=== PATIENT | male | born 1940 | race Two or more races ===

== ENCOUNTER 2020-06-18 09:47 | Inpatient (IN) | payer MEDICARE, OTHER ==
[2020-06-18 10:53] LABS: Basophils # (A) 0.1 k/uL (0-0.2); Basophils % (A) 0 %; Eosinophils # (A) 0.7 k/uL (0-0.7); Eosinophils % (A) 5 %; HCT 38.4 % (39.0-53.0); HGB 12.2 gm/dL (13.0-17.5); Lymphocytes # (A) 1.4 k/uL (1.0-4.8); Lymphocytes % (A) 8 %; MCH 28.7 pg (25.0-35.0); MCHC 31.9 g/dL (31.0-37.0); MCV 90.1 fL (80.0-100.0); Monocytes # (A) 0.6 k/uL (0-1.0); Monocytes % (A) 4 %; Neutrophils # (A) 13.3 k/uL (1.3-7.7); Neutrophils % (A) 82 %; Platelet Count 307 k/uL (150-450); RBC 4.26 m/uL (4.30-5.90); WBC 16.2 k/uL (3.8-10.6)
[2020-06-18 11:05] LABS: ALT 12 U/L (4-49); AST 18 U/L (17-59); African American GFR (CKD) >90 (>60 ml/min/1.73 sqM); Alkaline Phosphatase 56 U/L (38-126); Anion Gap 12 mmol/L; Blood Urea Nitrogen 13 mg/dL (9-20); Calcium 9.7 mg/dL (8.4-10.2); Carbon Dioxide 21 mmol/L (22-30); Chloride 104 mmol/L (98-107); Glucose 163 mg/dL (74-99); Magnesium 1.2 mg/dL (1.6-2.3); Non-African American GFR(CKD) 87 (>60 ml/min/1.73 sqM); Potassium 5.2 mmol/L (3.5-5.1); Sodium 137 mmol/L (137-145); Total Bilirubin 0.5 mg/dL (0.2-1.3); Total Protein 7.2 g/dL (6.3-8.2)
[2020-06-18 11:08] LABS: Prothrombin Time 10.5 sec (9.0-12.0)
--- NOTE | 2020-06-18 11:14 | XR ---
EXAMINATION TYPE: XR chest 2V DATE OF EXAM: 06/18/2020 COMPARISON: NONE HISTORY: Chest pain. TECHNIQUE: Frontal and lateral views of the chest are obtained. FINDINGS: Background chronic emphysematous change.There is no focal air space opacity or pneumothorax seen bilaterally. Suspected small to tiny right pleural effusion on lateral view. The cardiac silhou ette size is within normal limits. Suspicious 5.2 cm left hilar mass localized to the medial superior aspect left lower lobe seen best on lateral view The osseous structures are intact. IMPRESSION: Chronic emphysematous change without acute pulmonary infiltrate. Small to tiny pleural e ffusion suspected right sided. Worrisome 5 cm left hilar mass, advise contrast enhanced CT follow-up as neoplasm strongly suspected.
[2020-06-18 11:20] LABS: D-Dimer 0.65 mg/L FEU (<0.60)
--- NOTE | 2020-06-18 12:29 | ED ---
General Adult HPI - General Chief complaint: Abdominal Pain Stated complaint: Chest pain Time Seen by Provider: 06/18/20 09:55 Source: patient Mode of arrival: wheelchair Limitations: no limitations - History of Present Illness Initial comments: 79-year-old male with past medical history of diabetes results emergency room with reported left-sided chest pain. Patient states that it is persistent and started 4 days ago. It will wax and wane in severity. He will occasionally get sharp shooting pains which go to his left scapula. Patient has associated shortness of breath. Denies any ripping or tearing sensation to his back. No pleuritic pain. Denies hemoptysis. Previous history of cardiac disease. Denies history of lung disease. Patient has not had a previous cardiac workup. Denies associated nausea, vomiting or diaphoresis. Denies any abdominal pain or changes in his bowel or bladder habits. No unilateral numbness or weakness. Trevor zacarias does not smoke. No productive cough, fevers or chills. No other alleviating, precipitating factors - Related Data Home Medications Medication Instructions Recorded Confirmed Aspirin EC [Ecotrin Low Dose] 81 mg PO HS 06/18/20 06/18/20 Cholecalciferol [Vitamin D3 (25 5,000 unit PO HS 06/18/20 06/18/20 Mcg = 1000 Iu)] Lisinopril [Zestril] 10 mg PO DAILY 06/18/20 06/18/20 Repaglinide [Prandin] 0.5 mg PO AC-TID 06/18/20 06/18/20 Simvastatin [Zocor] 20 mg PO HS 06/18/20 06/18/20 metFORMIN HCL ER [Glucophage Xr] 1,000 mg PO BID 06/18/20 06/18/20 Allergies Allergy/AdvReac Type Severity Reaction Status Date / Time No Known Allergies Allergy Verified 06/18/20 11:30 Review of Systems ROS Statement: Those systems with pertinent positive or pertinent negative responses have been documented in the HPI. ROS Other: All systems not noted in ROS Statement are negative. Past Medical History Past Medical History: Diabetes Mellitus History of Any Multi-Drug Resistant Organisms: None Reported Past Surgical History: No Surgical Hx Reported Past Psychological History: No Psychological Hx Reported Smoking Status: Former smoker Past Alcohol Use History: None Reported Past Drug Use History: None Reported General Exam Limitations: no limitations General appearance: alert, in no apparent distress Head exam: Present: atraumatic, normocephalic, normal inspection Eye exam: Present: normal appearance, PERRL, EOMI. Absent: scleral icterus, conjunctival injection, periorbital swelling ENT exam: Present: normal exam, mucous membranes moist Neck exam: Present: normal inspection. Absent: tenderness, meningismus, lymphadenopathy Respiratory exam: Present: normal lung sounds bilaterally. Absent: respiratory distress, wheezes, rales, rhonchi, stridor Cardiovascular Exam: Present: regular rate, normal rhythm, normal heart sounds. Absent: systolic murmur, diastolic murmur, rubs, gallop, clicks GI/Abdominal exam: Present: soft, normal bowel sounds. Absent: distended, tenderness, guarding, rebound, rigid Extremities exam: Present: normal inspection, full ROM, normal capillary refill. Absent: tenderness, pedal edema, joint swelling, calf tenderness Back exam: Present: normal inspection Neurological exam: Present: alert, oriented X3, CN II-XII intact Psychiatric exam: Present: normal affect, normal mood Skin exam: Present: warm, dry, intact, normal color. Absent: rash Course Vital Signs 06/18/20 06/18/20 06/18/20 09:52 10:30 11:00 Temperature 98.3 F Pulse Rate 90 78 78 Respiratory 18 18 19 Rate Blood Pressure 152/76 150/77 131/75 O2 Sat by Pulse 95 95 95 Oximetry 06/18/20 06/18/20 06/18/20 12:00 12:30 13:00 Temperature Pulse Rate 77 77 76 Respiratory 15 20 13 Rate Blood Pressure 133/85 136/77 138/92 O2 Sat by Pulse 95 96 97 Oximetry 06/18/20 06/18/20 06/18/20 13:30 14:00 14:30 Temperature Pulse Rate 72 75 80 Respiratory 21 22 19 Rate Blood Pressure 117/85 142/68 125/64 O2 Sat by Pulse 98 95 97 Oximetry 06/18/20 06/18/20 06/18/20 15:00 15:30 16:00 Temperature Pulse Rate 76 77 78 Respiratory 18 13 19 Rate Blood Pressure 150/75 128/76 138/70 O2 Sat by Pulse 96 97 98 Oximetry 06/18/20 06/18/20 06/18/20 16:30 17:00 17:30 Temperature Pulse Rate 73 76 96 Respiratory 20 18 20 Rate Blood Pressure 127/67 143/73 138/99 O2 Sat by Pulse 96 97 96 Oximetry 06/18/20 18:00 Temperature Pulse Rate 86 Respiratory 19 Rate Blood Pressure 135/73 O2 Sat by Pulse 96 Oximetry EKG Findings - EKG Comments: EKG Findings:: EKG demonstrates normal sinus rhythm with ventricular rate of 84. P interval 150. QRS 82. QTC 4:15. No acute ST segment elevations. Medical Decision Making - Medical Decision Making Upon arrival the patient is placed into room 3. History and physical exam was performed. 12-lead EKG is unremarkable. Laboratory studies demonstrate a leukocytosis of 16.2. D-dimer elevated at 0.65. Chest x-ray is performed which demonstrates a large mass near the left hilum. As of this I did, the CT contrasted study for which the patient did agree to. This was performed which does demonstrate multiple pulmonary nodules, the largest of which is 4 cm which is near the left lower lobe posterior medial. There is an additional nodule in the inferior left lower lobe area and left hilar and left mediastinal lymphadenopathy. I discussed results the patient. I did recommend hospital admission for evaluation by pulmonology for biopsy. Patient agreed to this. Discussed case with Dr. Wells who accepted admission. Patient is currently awaiting a bed on the floor - Lab Data Result diagrams: 06/19/20 06:16 06/19/20 06:16 Lab Results 06/18/20 06/18/20 06/18/20 Range/Units 10:34 10:34 10:34 WBC 16.2 H (3.8-10.6) k/uL RBC 4.26 L (4.30-5.90) m/uL Hgb 12.2 L (13.0-17.5) gm/dL Hct 38.4 L (39.0-53.0) % MCV 90.1 (80.0-100.0) fL MCH 28.7 (25.0-35.0) pg MCHC 31.9 (31.0-37.0) g/dL RDW 13.0 (11.5-15.5) % Plt Count 307 (150-450) k/uL Neutrophils % 82 % Lymphocytes % 8 % Monocytes % 4 % Eosinophils % 5 % Basophils % 0 % Neutrophils # 13.3 H (1.3-7.7) k/uL Lymphocytes # 1.4 (1.0-4.8) k/uL Monocytes # 0.6 (0-1.0) k/uL Eosinophils # 0.7 (0-0.7) k/uL Basophils # 0.1 (0-0.2) k/uL PT 10.5 (9.0-12.0) sec INR 1.0 (<1.2) APTT 26.0 (22.0-30.0) sec D-Dimer 0.65 H (<0.60) mg/L FEU Sodium 137 (137-145) mmol/L Potassium 5.2 H (3.5-5.1) mmol/L Chloride 104 (98-107) mmol/L Carbon Dioxide 21 L (22-30) mmol/L Anion Gap 12 mmol/L BUN 13 (9-20) mg/dL Creatinine 0.80 (0.66-1.25) mg/dL Est GFR (CKD-EPI)AfAm >90 (>60 ml/min/1.73 sqM) Est GFR (CKD-EPI)NonAf 87 (>60 ml/min/1.73 sqM) Glucose 163 H (74-99) mg/dL Calcium 9.7 (8.4-10.2) mg/dL Magnesium 1.2 L (1.6-2.3) mg/dL Total Bilirubin 0.5 (0.2-1.3) mg/dL AST 18 (17-59) U/L ALT 12 (4-49) U/L Alkaline Phosphatase 56 (38-126) U/L Troponin I (0.000-0.034) ng/mL NT-Pro-B Natriuret Pep pg/mL Total Protein 7.2 (6.3-8.2) g/dL Albumin 4.0 (3.5-5.0) g/dL Lipase 54 (23-300) U/L 06/18/20 06/18/20 Range/Units 10:34 10:34 WBC (3.8-10.6) k/uL RBC (4.30-5.90) m/uL Hgb (13.0-17.5) gm/dL Hct (39.0-53.0) % MCV (80.0-100.0) fL MCH (25.0-35.0) pg MCHC (31.0-37.0) g/dL RDW (11.5-15.5) % Plt Count (150-450) k/uL Neutrophils % % Lymphocytes % % Monocytes % % Eosinophils % % Basophils % % Neutrophils # (1.3-7.7) k/uL Lymphocytes # (1.0-4.8) k/uL Monocytes # (0-1.0) k/uL Eosinophils # (0-0.7) k/uL Basophils # (0-0.2) k/uL PT (9.0-12.0) sec INR (<1.2) APTT (22.0-30.0) sec D-Dimer (<0.60) mg/L FEU Sodium (137-145) mmol/L Potassium (3.5-5.1) mmol/L Chloride (98-107) mmol/L Carbon Dioxide (22-30) mmol/L Anion Gap mmol/L BUN (9-20) mg/dL Creatinine (0.66-1.25) mg/dL Est GFR (CKD-EPI)AfAm (>60 ml/min/1.73 sqM) Est GFR (CKD-EPI)NonAf (>60 ml/min/1.73 sqM) Glucose (74-99) mg/dL Calcium (8.4-10.2) mg/dL Magnesium (1.6-2.3) mg/dL Total Bilirubin (0.2-1.3) mg/dL AST (17-59) U/L ALT (4-49) U/L Alkaline Phosphatase (38-126) U/L Troponin I <0.012 (0.000-0.034) ng/mL NT-Pro-B Natriuret Pep 120 pg/mL Total Protein (6.3-8.2) g/dL Albumin (3.5-5.0) g/dL Lipase (23-300) U/L Disposition Clinical Impression: Chest pain, Chest mass Disposition: ADMITTED IP TO THIS [facility] Condition: Stable Is patient prescribed a controlled substance at d/c from ED?: No Decision to Admit Reason: Admit from EC Decision Date: 06/18/20 Decision Time: 14:05
--- NOTE | 2020-06-18 13:33 | CT ---
EXAMINATION TYPE: CT chest angio for PE DATE OF EXAM: 06/18/2020 COMPARISON: Chest radiograph 06/18/2020 HISTORY: Lung mass. CT DLP: 247.7 mGycm Automated exposure control for dose reduction was used. CONTRAST: CT Chest for pulmonary embolism performed with with IV Contrast, patient injected with 100 mL of Isov ue 370. FINDINGS: LUNGS: There is a pleural-based 3.9 x 3.1 x 4.0 cm lobulated spiculated lung mass of the left lower l obe posteromedially (406:76). There is a 0.6 x 0.5 x 0.7 cm spiculated nodule of the inferior left lo wer lobe (406:104). There is spiculated opacity at the left apical pleura measuring 1.5 x 1.0 x 1.0 c m (406:9, 403:113). There is centrilobular emphysema. No pleural effusion or pneumothorax seen. The tracheobronchial tree is patent. MEDIASTINUM: There is satisfactory enhancement of the pulmonary artery and its branches, there is no CT evidence for pulmonary embolism. There is 3.2 x 2.4 cm left hilar adenopathy. There are a few prom inent left mediastinal lymph nodes, and a frankly enlarged left mediastinal lymph node measuring 1.1 x 1.2 cm (401:53) to the left of the ramakrishna. No pericardial effusion is seen. Cardiac size normal. N o thoracic aortic aneurysm. OTHER: Somewhat nodular appearance of the adrenal glands, however they are incompletely visualized. There are a few subtle tiny lucent osseous lesions of the visualized spine. There is decreased osseou s mineralization. IMPRESSION: 1. Spiculated left lower lobe posteromedial 4.0 cm lung mass most likely represents malignancy. 2. 7 mm spiculated nodule of the inferior left lower lobe may represent metastatic nodule. 3. Left hilar and left mediastinal lymphadenopathy, most likely metastatic disease. 4. Spiculated opacity at the left apical pleura may represent scarring versus metastatic focus. 5. Somewhat nodular appearance of the adrenal glands, however they are incompletely visualized on cu rrent exam. 6. Subtle tiny lucent indeterminate spinal lesions, for which differential includes osseous metastat ic disease. 7. No pulmonary embolus or thoracic aortic aneurysm.
[2020-06-18] MEDS ORDERED: NALOXONE 0.4 MG/ML 1 ML VIAL IV PRN (14:06)
[2020-06-18] MEDS: INSULIN ASPART (NovoLOG) 100 UNIT/ML VIAL SQ SCH ×2 (18:23→21:25)
[2020-06-18] MEDS ORDERED: Magnesium Replacement Protocol 1 EACH MISC MISCELLANE PRN (18:40)
[2020-06-18] MEDS: MAGNESIUM SULFATE-D5W PMX 1 GM in DEXTROSE/WATER 1 100ML.BAG IVPB SCH ×3 (20:01→22:37)
[2020-06-18 20:13] LABS: Glucose,Whole Blood 274 mg/dL (75-99)
[2020-06-18] MEDS ORDERED: ASPIRIN 81 MG PO SCH (21:00)
[2020-06-18] MEDS ORDERED: CHOLECALCIFEROL 1,000 UNIT TAB PO SCH (21:00)
[2020-06-18] MEDS ORDERED: ATORVASTATIN 10 MG TAB PO SCH (21:00)
[2020-06-18] MEDS: HEPARIN SODIUM,PORCINE 5,000 UNIT/ML 1 ML VIAL SQ SCH (23:24)
--- NOTE | 2020-06-19 00:18 | P.HPIM ---
History of Present Illness H&P Date: 06/18/20 Chief Complaint: Chest Pain Patient is a 79-year-old male with a known history of diabetes type 2 [id number], hypertension, hyperlipidemia and previous history of s moking presents to ER with complaints of chest pain mainly left-sided. Patient has been having intermittent chest pain for the past 4 to 5 days. Pain gets worse when he was lying down to the left while sleeping at night. Occasionally he will get sharp shooting pains radiating to the left scapula. Associated with minimal shortness of breath. Denied any cough or sputum production. No pleuritic chest pain. Denied any nausea vomiting or diaphoresis. Denied any fever or chills. No prior history of heart disease. Denied any recent illnesses or sick contacts. No leg swelling. Patient states that he did not lose about 5-6 LBS during the last 1 month. Denied any loss of appetite. Chest x-ray showed chronic emphysematous change without acute pulmonary infiltrate. Small to tiny pleural effusion suspected right-sided. Worrisome 5 cm left hilar mass. CT was recommended. CT angiogram of the chest was done which showed spiculated left lower lobe posterior medial 4.0 cm lung mass most likely represents malignancy. 7 mm spiculated nodule of the inferior left lower lobe may represent metastatic nodule. Left hilar and left mediastinal lymphadenopathy Nodular appearance of the adrenal glands. No pulmonary embolus thoracic aortic aneurysm. Review of Systems Constitutional: Patient denies any fever or chills . No generalized weakness or weight loss. Abdomen: Patient denied nausea vomiting and diarrhea and abdominal pain. Cardiovascular: Patient denies any chest pain or short of breath no palpitations. Respiratory: patient denied any cough is from production. No shortness of breath Neurologic: Patient denied any numbness or tingling headache. Musculoskeletal: Patient denies any complaints of joint swelling or deformity. Skin: Negative Psychiatric: Negative Endocrine: No heat or cold intolerance. No recent weight gain. Genitourinary: No dysuria or hematuria. All other 14 point ROS negative except the above Past Medical History Past Medical History: Diabetes Mellitus History of Any Multi-Drug Resistant Organisms: None Reported Past Surgical History: No Surgical Hx Reported Past Psychological History: No Psychological Hx Reported Smoking Status: Former smoker Past Alcohol Use History: None Reported Past Drug Use History: None Reported Medications and Allergies Home Medications Medication Instructions Recorded Confirmed Type Aspirin EC [Ecotrin Low Dose] 81 mg PO HS 06/18/20 06/18/20 History Cholecalciferol [Vitamin D3 (25 5,000 unit PO HS 06/18/20 06/18/20 History Mcg = 1000 Iu)] Lisinopril [Zestril] 10 mg PO DAILY 06/18/20 06/18/20 History Repaglinide [Prandin] 0.5 mg PO AC-TID 06/18/20 06/18/20 History Simvastatin [Zocor] 20 mg PO HS 06/18/20 06/18/20 History metFORMIN HCL ER [Glucophage Xr] 1,000 mg PO BID 06/18/20 06/18/20 History Allergies Allergy/AdvReac Type Severity Reaction Status Date / Time No Known Allergies Allergy Verified 06/18/20 11:30 Physical Exam Vitals: Vital Signs Temp Pulse Resp BP Pulse Ox 06/18/20 16:00 78 19 138/70 98 06/18/20 15:30 77 13 128/76 97 06/18/20 15:00 76 18 150/75 96 06/18/20 14:30 80 19 125/64 97 06/18/20 14:00 75 22 142/68 95 06/18/20 13:30 72 21 117/85 98 06/18/20 13:00 76 13 138/92 97 06/18/20 12:30 77 20 136/77 96 06/18/20 12:00 77 15 133/85 95 06/18/20 11:00 78 19 131/75 95 06/18/20 10:30 78 18 150/77 95 06/18/20 09:52 98.3 F 90 18 152/76 95 Intake and Output 06/18/20 06/18/20 06/18/20 06:59 14:59 22:59 Other: Weight 65.726 kg PHYSICAL EXAMINATION: Patient is lying in the bed comfortably, no acute distress, awake alert and oriented.. HEENT: Normocephalic. Neck is supple. Pupils reactive. Nostrils clear. Oral cavity is moist. Ears reveal no drainage. Neck reveals no JVD, carotid bruits, or thyromegaly. CHEST EXAMINATION: Trachea is central. Symmetrical expansion. Lung treadwell clear to auscultation and percussion. CARDIAC: Normal S1, S2 with no gallops. No murmurs ABDOMEN: Soft. Bowel sounds normal. No organomegaly. No abdominal bruits. Extremities: reveal no edema. No clubbing or cyanosis Neurologically awake, alert, oriented x3 with well-coordinated movements. No focal deficits noted Skin: No rash or skin lesions. Psychiatric: Coperative. Nonsuicidal Musculoskeletal: No joint swelling or deformity. Normal range of motion. Results CBC & Chem 7: 06/18/20 10:34 06/18/20 10:34 Labs: Abnormal Lab Results - Last 24 Hours (Table) 06/18/20 06/18/20 06/18/20 Range/Units 10:34 10:34 10:34 WBC 16.2 H (3.8-10.6) k/uL RBC 4.26 L (4.30-5.90) m/uL Hgb 12.2 L (13.0-17.5) gm/dL Hct 38.4 L (39.0-53.0) % Neutrophils # 13.3 H (1.3-7.7) k/uL D-Dimer 0.65 H (<0.60) mg/L FEU Potassium 5.2 H (3.5-5.1) mmol/L Carbon Dioxide 21 L (22-30) mmol/L Glucose 163 H (74-99) mg/dL Magnesium 1.2 L (1.6-2.3) mg/dL Thrombosis Risk Factor Assmnt - DVT/VTE Prophylaxis DVT/VTE Prophylaxis: Pharmacologic Prophylaxis ordered Assessment and Plan Assessment: Left lower lobe spiculated 4.0 cm mass. newly diagnosed Intermittent chest pains. Likely secondary to above. Ruled out ACS 7 mm spiculated nodule of the inferior left lower lobe may represent metastatic nodule. Left hilar and left mediastinal lymphadenopathy Leukocytosis Previous history of smoking Hypertension Hyperlipidemia Hyperglycemia with uncontrolled diabetes type 2 Hypomagnesemia Diabetes type 2 [id number] DVT prophylaxis with heparin subcu Plan: Patient will be continued on pain management and breathing treatments as needed. Pulmonary was consulted for possible bronchoscopy and biopsy. Monitor electrolytes and repeat CBC and BMP tomorrow. Prognosis guarded. Discussed with the patient and his at bedside in detail. Time with Patient: Greater than 30
[2020-06-19] MEDS: MAGNESIUM SULFATE-D5W PMX 1 GM in DEXTROSE/WATER 1 100ML.BAG IVPB SCH ×3 (01:46→07:05)
[2020-06-19] MEDS ORDERED: ACETAMINOPHEN TAB 325 MG TAB PO PRN (04:42)
[2020-06-19 06:23] LABS: Glucose,Whole Blood 187 mg/dL (75-99)
[2020-06-19] MEDS: INSULIN ASPART (NovoLOG) 100 UNIT/ML VIAL SQ SCH ×2 (06:23→12:12)
[2020-06-19 07:32] LABS: Basophils # (A) 0.1 k/uL (0-0.2); Basophils % (A) 0 %; Eosinophils # (A) 0.6 k/uL (0-0.7); Eosinophils % (A) 4 %; HCT 38.7 % (39.0-53.0); HGB 12.1 gm/dL (13.0-17.5); Lymphocytes # (A) 1.2 k/uL (1.0-4.8); Lymphocytes % (A) 7 %; MCH 28.4 pg (25.0-35.0); MCHC 31.2 g/dL (31.0-37.0); MCV 90.9 fL (80.0-100.0); Mean Platelet Volume 8.8; Monocytes # (A) 0.9 k/uL (0-1.0); Monocytes % (A) 5 %; Neutrophils # (A) 13.7 k/uL (1.3-7.7); Neutrophils % (A) 82 %; Platelet Count 309 k/uL (150-450); RBC 4.26 m/uL (4.30-5.90); RDW 13.1 % (11.5-15.5); WBC 16.7 k/uL (3.8-10.6)
[2020-06-19 07:46] LABS: Calcium 9.3 mg/dL (8.4-10.2); Potassium 5.3 mmol/L (3.5-5.1)
[2020-06-19] MEDS ORDERED: lisinopriL 10 MG TAB PO SCH (09:00)
[2020-06-19] MEDS: HEPARIN SODIUM,PORCINE 5,000 UNIT/ML 1 ML VIAL SQ SCH ×2 (09:13→12:49)
--- NOTE | 2020-06-19 11:20 | ECHOF ---
Referral Reason:cp MEASUREMENTS -------- HEIGHT: 172.7 cm WEIGHT: 64.4 kg BP: IVSd: 0.9 cm (0.6 - 1.1) LVIDd: 3.7 cm (3.9 - 5.3) LVPWd: 1.2 cm (0.6 - 1.1) EDV(Teich): 58 ml IVSs: 1.1 cm LVIDs: 3.3 cm LVPWs: 1.6 cm %IVS Thck: 22 % ESV(Teich): 43 ml EF(Teich): 25 % %FS: 11 % SV(Teich): 15 ml Ao Diam: 3.0 cm (2.0 - 3.7) AV Cusp: 2.0 cm (1.5 - 2.6) MV EXCURSION: 15.618 mm (> 18.000) MV EF SLOPE: 111 mm/s (70 - 150) EPSS: 0.6 cm MV E Oliverio: 0.62 m/s MV DecT: 310 ms MV Dec Nelson: 2.0 m/s MV A Oliverio: 0.88 m/s MV E/A Ratio: 0.70 MV PHT: 90 ms TR Vmax: 2.46 m/s TR maxP.28 mmHg RAP: 5.00 mmHg RVSP: 29.28 mmHg FINDINGS -------- Sinus rhythm. This was a technically good study. LV size, wall thickness and systolic function are normal, with an EF greater than 55%. The left natali tricular size is normal. The right ventricle is normal in size. The left atrial size is normal. The right atrial size is normal. The aortic valve is trileaflet, and appears structurally normal. No aortic stenosis or regurgitation. The mitral valve leaflets are mildly thickened. Mild mitral regurgitation is present. Mild tricuspid regurgitation present. Right ventricular systolic pressure is normal at < 35 mmHg. There is no pulmonic regurgitation present. The aortic root size is normal. Echo free space represents a pericardial fat pad. CONCLUSIONS -------- 1. LV size, wall thickness and systolic function are normal, with an EF greater than 55%. 2. The left ventricular size is normal. 3. The left atrial size is normal. 4. The right atrial size is normal. 5. The mitral valve leaflets are moderately thickened. 6. Mild mitral regurgitation is present. 7. Mild tricuspid regurgitation present. 8. Echo free space represents a pericardial fat pad. DUNGEON MASTER: Ramona Hoover RDCS
[2020-06-19 12:01] LABS: Glucose,Whole Blood 161 mg/dL (75-99)
[2020-06-19 12:21] VITALS: TEMP 98.4
[2020-06-19 12:27] VITALS: RESP 16
--- NOTE | 2020-06-19 12:50 | P.PCN ---
Date of Procedure: 06/19/20 Preoperative Diagnosis: left lung mass Procedure(s) Performed: ct lung core bx Anesthesia: local Estimated Blood Loss (ml): 5 Pathology: other (in formalin) Disposition: no change Operative Findings: 2 x 20 ga core biopsy left lower lobe pleural based mass
--- NOTE | 2020-06-19 13:00 | XR ---
EXAMINATION TYPE: XR chest 1V portable DATE OF EXAM: 06/19/2020 COMPARISON: 06/18/2020 HISTORY: Chest pain TECHNIQUE: Single frontal view of the chest is obtained. FINDINGS: There is left hilar soft tissue mass. Hyperinflation suggests COPD. Atherosclerotic change aorta. Degenerative change of the spine. No interstitial edema or pneumothorax. IMPRESSION: COPD with left lung mass. No pneumothorax.
--- NOTE | 2020-06-19 13:50 | CT ---
EXAMINATION TYPE: CT guided FNA first lesion DATE OF EXAM: 06/19/2020 COMPARISON: CT 06/18/2020 HISTORY: Left lung mass CT DLP: 663 mGycm Automated exposure control for dose reduction was used. Maximal barrier technique was utilized, hand hygiene obtained with soap and water. The skin overlyin g a suitable path to the lesion was localized using CT and the overlying skin was prepped and draped. Lidocaine used for local anesthesia. A skin karin made with a scalpel. Using CT guidance, access w as gained to the lesion with a 19-gauge guide needle. Core specimen with 20-gauge needle submitted t o pathology in formalin. 2 pass(es) performed in all. Following the procedure no immediate complica tions. The patient is discharged in stable condition to observation. Hemostasis achieved. IMPRESSION: SUCCESSFUL CT GUIDED CORE BIOPSY left lower lobe lung nodule. PATHOLOGY PENDING. THIS PROCEDURE WAS PERFORMED BY THE UNDERSIGNED.
[2020-06-19 14:09] VITALS: BP 154/84; PULSE 72
--- NOTE | 2020-06-19 14:43 | P.CNPUL ---
History of Present Illness Consult date: 06/19/20 Requesting physician: Selina Wells Reason for consult: dyspnea, lung mass, abnormal CXR/CT Chief complaint: Left lower lobe spiculated lung mass and left lower lobe nodule History of present illness: 79-year-old white male patient of Dr. Nunez, with past medical history of nicotine dependence, in remission for last 16 years, patient does carry 40 year smoking history of 2 packs per day, diabetes mellitus, hypertension, hyperlipidemia, who presented to the emergency department on 06/18/2020 for evaluation of left-sided chest pain just under the left anterior rib cage. Patient has been having intermittent chest pain for last 4-5 days. The pain has been worse when he is lying down sleeping at night on the left side with occasional sharp shooting pain radiating to his back and left scapula. Denies any significant shortness of breath, denies any cough, no sputum production, no pleuritic chest pain, no hemoptysis. Denies any fever or chills. No nausea vomiting diarrhea. Patient states he has lost about 5-7 pounds in the last few weeks, and about 20 pounds in the last year without trying. His chest x-ray showed chronic emphysematous changes without acute pulmonary infiltrate, with small to tiny pleural effusion suspected in the right side. There was a 5 cm left hilar mass, and this was followed by CTA chest which showed a spiculated left lower lobe posteromedial 4.0 cm lung mass, suspicious for malignancy, 7 mm spiculated nodule on the inferior left lower lobe that could represent metastatic nodule, left hilar and left mediastinal lymphadenopathy most likely related to metastatic disease, speaking capacity at the left apical pleura could represent scarring versus metastatic focus, and somewhat nodular appearance of the adrenal glands and several tiny lucent indeterminant spinal lesions, with the possibility of osseous metastatic disease. There was no evidence of pulmonary embolism or thoracic aortic aneurysm. Lab work showed white blood cell count of 16.2, hemoglobin of 12.2, d-dimer was 0.65, sodium is 137, potassium is 5.2, chloride is 104, CO2 is 21, BUN was 13, creatinine 0.80, troponins were negative 3, at less than 0.012, proBNP was 120, LFTs were within normal limits. We were consulted in regards to the new finding of the left lower lobe lung mass, left hilar, left mediastinal lymphadenopathy, suspicious for malignancy. Review of Systems All systems: negative Constitutional: Reports weight loss, Denies chills, Denies fever Eyes: denies blurred vision, denies pain Ears, nose, mouth and throat: Denies headache, Denies sore throat Cardiovascular: Reports chest pain, Denies shortness of breath Respiratory: Denies cough Gastrointestinal: Denies abdominal pain, Denies diarrhea, Denies nausea, Denies vomiting Musculoskeletal: Denies myalgias Integumentary: Denies pruritus, Denies rash Neurological: Denies numbness, Denies weakness Psychiatric: Denies anxiety, Denies depression Endocrine: Reports weight change, Denies fatigue Past Medical History Past Medical History: Diabetes Mellitus History of Any Multi-Drug Resistant Organisms: None Reported Past Surgical History: No Surgical Hx Reported Additional Past Surgical History / Comment(s): Cataract surgery in left eye Past Psychological History: No Psychological Hx Reported Smoking Status: Former smoker Past Alcohol Use History: None Reported Past Drug Use History: None Reported Medications and Allergies Home Medications Medication Instructions Recorded Confirmed Type Aspirin EC [Ecotrin Low Dose] 81 mg PO HS 06/18/20 06/18/20 History Cholecalciferol [Vitamin D3 (25 5,000 unit PO HS 06/18/20 06/18/20 History Mcg = 1000 Iu)] Lisinopril [Zestril] 10 mg PO DAILY 06/18/20 06/18/20 History Repaglinide [Prandin] 0.5 mg PO AC-TID 06/18/20 06/18/20 History Simvastatin [Zocor] 20 mg PO HS 06/18/20 06/18/20 History metFORMIN HCL ER [Glucophage Xr] 1,000 mg PO BID 06/18/20 06/18/20 History Allergies Allergy/AdvReac Type Severity Reaction Status Date / Time No Known Allergies Allergy Verified 06/18/20 11:30 Physical Exam Vitals: Vital Signs Temp Pulse Pulse Resp BP BP BP 06/19/20 13:00 72 16 154/84 06/19/20 12:45 76 16 141/68 134/73 06/19/20 12:20 80 16 166/77 06/19/20 12:00 98.4 F 72 14 143/67 06/19/20 08:00 98.2 F 84 14 121/67 06/19/20 04:00 86 16 129/59 06/18/20 23:19 76 16 136/65 06/18/20 20:00 94 16 169/72 06/18/20 18:00 86 19 135/73 06/18/20 17:30 96 20 138/99 06/18/20 17:00 76 18 143/73 06/18/20 16:30 73 20 127/67 06/18/20 16:00 78 19 138/70 06/18/20 15:30 77 13 128/76 06/18/20 15:00 76 18 150/75 06/18/20 14:30 80 19 125/64 Pulse Ox 06/19/20 13:00 95 06/19/20 12:45 98 06/19/20 12:20 99 06/19/20 12:00 94 L 06/19/20 08:00 99 06/19/20 04:00 95 06/18/20 23:19 96 06/18/20 20:00 96 06/18/20 18:00 96 06/18/20 17:30 96 06/18/20 17:00 97 06/18/20 16:30 96 06/18/20 16:00 98 06/18/20 15:30 97 06/18/20 15:00 96 06/18/20 14:30 97 Intake and Output 06/18/20 06/19/20 06/19/20 22:59 06:59 14:59 Intake Total 300 0 Balance 300 0 Intake: Intake, IV Titration 300 Amount Magnesium Sulfate-D5w Pmx 300 1 gm In Dextrose/Water 1 100ml.bag @ 100 mls/hr IVPB Q1H [facility] Rx#: [id number] Oral 0 Other: # Voids 1 3 Weight 65.726 kg 64.5 kg GENERAL EXAM: Alert, very pleasant, 79-year-old white male, on room air, comfortable in no apparent distress. HEAD: Normocephalic/atraumatic. EYES: Normal reaction of pupils, equal size. Conjunctiva pink, sclera white. NOSE: Clear with pink turbinates. THROAT: No erythema or exudates. NECK: No masses, no JVD, no thyroid enlargement, no adenopathy. CHEST: No chest wall deformity. Symmetrical expansion. LUNGS: Equal air entry with no crackles, wheeze, rhonchi or dullness. CVS: Regular rate and rhythm, normal S1 and S2, no gallops, no murmurs, no rubs ABDOMEN: Soft, nontender. No hepatosplenomegaly, normal bowel sounds, no guarding or rigidity. EXTREMITIES: No clubbing, no edema, no cyanosis, 2+ pulses and upper and lower extremities. MUSCULOSKELETAL: Muscle strength and tone normal. SPINE: No scoliosis or deformity SKIN: No rashes CENTRAL NERVOUS SYSTEM: Alert and oriented -3. No focal deficits, tone is normal in all 4 extremities. PSYCHIATRIC: Alert and oriented -3. Appropriate affect. Intact judgment and insight. Results - Laboratory Findings CBC and BMP: 06/19/20 06:16 06/19/20 06:16 PT/INR, D-dimer PT 10.5 sec (9.0-12.0) 06/18/20 10:34 INR 1.0 (<1.2) 06/18/20 10:34 D-Dimer 0.65 mg/L FEU (<0.60) H 06/18/20 10:34 Abnormal lab findings: Abnormal Labs 06/18/20 06/18/20 06/18/20 10:34 10:34 10:34 WBC 16.2 H RBC 4.26 L Hgb 12.2 L Hct 38.4 L Neutrophils # 13.3 H D-Dimer 0.65 H Sodium Potassium 5.2 H Carbon Dioxide 21 L Glucose 163 H POC Glucose (mg/dL) Magnesium 1.2 L 06/18/20 06/19/20 06/19/20 20:12 06:16 06:16 WBC 16.7 H RBC 4.26 L Hgb 12.1 L Hct 38.7 L Neutrophils # 13.7 H D-Dimer Sodium 136 L Potassium 5.3 H Carbon Dioxide Glucose 175 H POC Glucose (mg/dL) 274 H Magnesium 06/19/20 06/19/20 06:22 11:56 WBC RBC Hgb Hct Neutrophils # D-Dimer Sodium Potassium Carbon Dioxide Glucose POC Glucose (mg/dL) 187 H 161 H Magnesium - Diagnostic Findings Chest x-ray: report reviewed, image reviewed CT scan - chest: report reviewed, image reviewed Assessment and Plan Plan: Assessment: #1. Spiculated left lower lobe lung mass measuring 4.0 cm, with 7 mm spiculated nodule in the inferior left lower lobe, left hilar and left mediastinal lymphadenopathy and spiculated opacity in the left apical pleura, suspicious for metastatic disease. Somewhat nodular appearance of the adrenal glands, and subtle tiny lucent indeterminate spinal lesions that could represent metastatic disease #2. Left chest pain under the left rib cage, likely related to the above #3. History of tobacco dependence, patient carries 40 years of smoking, up to 2 packs a day, in remission for last 16 years #4. Weight loss, patient lost 20 pounds in the last year #5. Diabetes mellitus type 2, [id number] #6. Hypertension #7. Hyperlipidemia Plan: We'll consult interventional radiology for CT-guided fine-needle needle biopsy of the left lung mass, pathology is pending. If remains stable, patient may be considered for discharge home today and will see the patient on outpatient basis in follow-up on the pathology report. Otherwise continue current medical treatment, his left chest pain has subsided, he is on room air, his vitals have been stable. We will continue to follow I performed a history & physical examination of the patient and discussed their management with my nurse practitioner, Delaney Alvarado. I reviewed the nurse practitioner's note and agree with the documented findings and plan of care. Gladis ng sounds are positive for diminished breath sounds. The findings and the impression was discussed with the patient. I attest to the documentation by the nurse practitioner. Time with Patient: Greater than 30
--- NOTE | 2020-06-19 15:09 | CONS ---
CONSULTATION Mr. Tafoya is a 79-year-old male with no prior documented history of coronary artery disease, history of hypertension and remote history of diabetes, remote history of smoking which he stopped 16 years ago, who presented to the hospital with symptoms of left-sided chest discomfort. The discomfort is in the lower ribcage on the left side. It has been going on for the last 5 or 6 days, worse with certain position and breathing. He has also has lost some weight over the last few weeks. He came into the emergency room and subsequently admitted. Prior to this, he has no history of cardiac disease. He has no dyspnea on exertion. No dizziness. No palpitation. No syncope. No PND, orthopnea, or peripheral edema. His coronary risk factors are remarkable for history of hypertension, hyperlipidemia, and diabetes he stopped smoking 16 years ago, as noted. MEDICATIONS: Include aspirin, metformin 1 g twice a day, simvastatin 20 mg daily, Prandin 0.5 mg 3 times a day and lisinopril 10 mg daily. In the emergency room, his chest x-ray revealed a left hilar mass and underwent a CT scan that was suggestive of a malignancy. REVIEW OF SYSTEMS: RESPIRATORY SYSTEM: He has no wheezing. No cough. No history of documented obstructive lung disease. GI SYSTEM: No recent GI bleeding, no peptic ulcer disease. SYSTEM: No dysuria or hematuria. NERVOUS SYSTEM: No stroke or seizure. PHYSICAL EXAMINATION: A 79-year-old male, alert, oriented, in no apparent distress. Blood pressure 129/59 with a heart rate in the 80s. HEAD: Normocephalic. EYES: Sclerae nonicteric. NECK: Good upstroke, no bruit, no jugular venous distention. LUNGS: Clear to auscultation. HEART: Regular rate and rhythm, S1, S2. No S3. No rub or gallop. Chest wall with mild tenderness in the left lower rib cage. ABDOMEN: Soft, nontender. Positive bowel sounds, no organomegaly. EXTREMITIES: No edema, intact pulses. LAB DATA: Revealed troponin less than 0.012 for 3 samples. NT proBNP of 120. BUN and creatinine of 17 and 1.0, potassium 5.3, hemoglobin 12.1, white blood cell of 16.7. EKG revealed a sinus mechanism, normal axis and intervals with nonspecific ST-T wave changes. Chest CT revealed a left lower lobe spiculated 4.0 lung mass, highly suggestive of malignancy and there is a 7 mm nodule in the inferior lower lobe that could represent a static nodule and left hilar and left mediastinal lymphadenopathy and there is a tiny indeterminate spinal lesion that could be metastatic disease. IMPRESSION: 1. Chest discomfort atypical for ischemic heart disease. 2. Highly suspicious chest x-ray and CT scan for malignancy with possible bone metastasis. 3. History of hypertension. 4. Hyperlipidemia. 5. Diabetes mellitus. RECOMMENDATION: From the cardiac stand standpoint, I will obtain echocardiogram with Doppler. Will await the input of the Pulmonary Service for possible bronchoscopy and biopsy for diagnosis and treatment. At this time, I do not see any evidence to suggest active cardiac disease. Thank you for this consult. Will follow with you. MMODL / IJN: [id number] /
--- NOTE | 2020-06-19 15:11 | XR ---
EXAMINATION TYPE: XR chest 1V portable DATE OF EXAM: 06/19/2020 COMPARISON: 06/19/2020 HISTORY: Post left lung biopsy TECHNIQUE: Single frontal view of the chest is obtained. FINDINGS: Left upper lobe lung mass seen centrally noted to be posterior on the CT scan. Hyperinflat ion compatible COPD. No sizable pneumothorax. No overt failure. Hypertrophic and degenerative change of the spine. Arthropathy of the shoulders. IMPRESSION: 1. No pneumothorax. Left upper lobe lung mass noted.
--- NOTE | 2020-06-22 09:07 | CDI ---
Documentation Clarification Form Date: 06/22/20 From: Lorraine Rangel Phone: If you have a question about this query, please contact Marcie Almanza, Fire Equipment Operator at [phone] between 8am and 5pm. Admit Date: 06/18/20 Discharge Date: 06/19/20 Patient Name: SAMSON GUEVARA Visit Number: [id number] ATTENTION: The Clinical Documentation Specialists (CDI) and [facility] Coding Staff appreciate your assistance in clarifying documentation. Please respond to the clarification below the line at the bottom and electronically sign. The CDI & [facility] Coding staff will review the response and follow-up if needed. Please note: Queries are made part of the Legal Health Record. If you have any questions, please contact the author of this message via ITS. Dear Dr. 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 Patient history/risk factors: hypomagnesemia, type II DM w hyperglycemia, hyperlipidemia, HTN Clinical Indicators: 4.0 cm lung mass in left lower posteromedial and 7 mm spiculated nodule of the inferior left lower lobe may represent metastatic. Left hilar and left mediastinal lymphadenopathy Treatment: Core biopsy left lower lobe pleural based mass In your professional opinion, do you agree with the pathology report specifying the left lung mass as poorly differentiated pulmonary adenocarcinoma? Yes No Other (please specify) Unable to determine YES MTDD
--- NOTE | 2020-07-03 22:12 | P.DS ---
Providers Date of admission: 06/18/20 14:06 Expected date of discharge: 06/19/20 Attending physician: Gamal Sinha Consults: 06/18/20 14:08 Consult Physician Urgent Consulting Provider: [facility] Consult Reason/Comments: acute chest pain Do you want consulting provider notified?: Yes Consult Physician Urgent Consulting Provider: Angela Alvarez Consult Reason/Comments: new pulmonary mass Do you want consulting provider notified?: Yes Primary care physician: [facility] Course: Discharge diagnosis Left lower lobe spiculated 4.0 cm mass. newly diagnosed,, s/p Biopsy Intermittent chest pains. Likely secondary to above. Ruled out ACS 7 mm spiculated nodule of the inferior left lower lobe may represent metastatic nodule. Left hilar and left mediastinal lymphadenopathy. Leukocytosis Previous history of smoking Hypertension Hyperlipidemia Hyperglycemia with uncontrolled diabetes type 2 Hypomagnesemia Diabetes type 2 [id number] DVT prophylaxis with heparin subcu Hospital course Patient is a 79-year-old male with a known history of diabetes type 2 [id number], hypertension, hyperlipidemia and previous history of smoking presents to ER with complaints of chest pain mainly left-sided. Patient has been having intermittent chest pain for the past 4 to 5 days. Pain gets worse when he was lying down to the left while sleeping at night. Occasionally he will get sharp shooting pains radiating to the left scapula. Associated with minimal shortness of breath. Denied any cough or sputum production. No pleuritic chest pain. Denied any nausea vomiting or diaphoresis. Denied any fever or chills. No prior history of heart disease. Denied any recent illnesses or sick contacts. No leg swelling. Patient states that he did not lose about 5-6 LBS during the last 1 month. Denied any loss of appetite. Chest x-ray showed chronic emphysematous change without acute pulmonary infiltrate. Small to tiny pleural effusion suspected right-sided. Worrisome 5 cm left hilar mass. CT was recommended. CT angiogram of the chest was done which showed spiculated left lower lobe posterior medial 4.0 cm lung mass most likely represents malignancy. 7 mm spiculated nodule of the inferior left lower lobe may represent metastatic nodule. Left hilar and left mediastinal lymphadenopathy Nodular appearance of the adrenal glands. No pulmonary embolus thoracic aortic aneurysm. Patient was continued on pain management and breathing treatments as needed. Pulmonary was consulted for possible bronchoscopy and biopsy. Patient underwent CT-guided lung biopsy. Was recommended to follow-up as an outpatient with biopsy results in the pulmonary clinic. Seen by cardiology as well. 2D echocardiogram showed normal ejection fraction. No significant valvular abnormalities were noted. Cleared from cardiology and pulmonary standpoint. PHYSICAL EXAMINATION: Patient is lying in the bed comfortably, no acute distress, awake alert and oriented.. HEENT: Normocephalic. Neck is supple. Pupils reactive. Nostrils clear. Oral cavity is moist. Ears reveal no drainage. Neck reveals no JVD, carotid bruits, or thyromegaly. CHEST EXAMINATION: Trachea is central. Symmetrical expansion. Lung treadwell clear to auscultation and percussion. CARDIAC: Normal S1, S2 with no gallops. No murmurs ABDOMEN: Soft. Bowel sounds normal. No organomegaly. No abdominal bruits. Extremities: reveal no edema. No clubbing or cyanosis Neurologically awake, alert, oriented x3 with well-coordinated movements. No fo alejandro deficits noted Skin: No rash or skin lesions. Psychiatric: Coperative. Nonsuicidal Musculoskeletal: No joint swelling or deformity. Normal range of motion. Vital Signs Temp Pulse Pulse Resp BP BP BP 06/19/20 13:00 72 16 154/84 06/19/20 12:45 76 16 141/68 134/73 06/19/20 12:20 80 16 166/77 06/19/20 12:00 98.4 F 72 14 143/67 06/19/20 08:00 98.2 F 84 14 121/67 06/19/20 04:00 86 16 129/59 06/18/20 23:19 76 16 136/65 06/18/20 20:00 94 16 169/72 06/18/20 18:00 86 19 135/73 06/18/20 17:30 96 20 138/99 06/18/20 17:00 76 18 143/73 06/18/20 16:30 73 20 127/67 06/18/20 16:00 78 19 138/70 06/18/20 15:30 77 13 128/76 06/18/20 15:00 76 18 150/75 06/18/20 14:30 80 19 125/64 Patient Condition at Discharge: Stable Plan - Discharge Summary Discharge Rx Participant: No New Discharge Prescriptions: Continue Cholecalciferol [Vitamin D3 (25 Mcg = 1000 Iu)] 5,000 unit PO HS Aspirin EC [Ecotrin Low Dose] 81 mg PO HS metFORMIN HCL ER [Glucophage Xr] 1,000 mg PO BID Simvastatin [Zocor] 20 mg PO HS Repaglinide [Prandin] 0.5 mg PO AC-TID Lisinopril [Zestril] 10 mg PO DAILY Discharge Medication List Aspirin EC [Ecotrin Low Dose] 81 mg PO HS 06/18/20 [History] Cholecalciferol [Vitamin D3 (25 Mcg = 1000 Iu)] 5,000 unit PO HS 06/18/20 [History] Lisinopril [Zestril] 10 mg PO DAILY 06/18/20 [History] Repaglinide [Prandin] 0.5 mg PO AC-TID 06/18/20 [History] Simvastatin [Zocor] 20 mg PO HS 06/18/20 [History] metFORMIN HCL ER [Glucophage Xr] 1,000 mg PO BID 06/18/20 [History] Follow up Appointment(s)/Referral(s): Angela Alvarez MD [STAFF PHYSICIAN] - 06/27/20 9:00 am Talat Hall MD [STAFF PHYSICIAN] - 1 Week (office will call you for follow up appo intment) Jan Nunez MD [Primary Care Provider] - 06/21/20 3:40 pm Patient Instructions/Handouts: Fine Needle Aspiration Biopsy (DC) Discharge Disposition: HOME SELF-CARE
== END 2020-06-19 16:10 | disposition home or self-care (01) | DRG 182 ==
LOC: EC 09:47 → 3SCARD 14:06
PROVIDERS: ADMIT Hospitalist; ATTEND Hospitalist
PROC: 0BBJ3ZX Excision of Left Lower Lung Lobe, Percutaneous Approach, Diagnostic (ICD-10-PCS; principal; 2020-06-18)
DX: C34.32 Malignant neoplasm of lower lobe, left bronchus or lung (principal); E83.42 Hypomagnesemia; E11.65 Type 2 diabetes mellitus with hyperglycemia; D72.829 Elevated white blood cell count, unspecified; E78.5 Hyperlipidemia, unspecified; I10 Essential (primary) hypertension; Z79.84 Long term (current) use of oral hypoglycemic drugs; Z79.82 Long term (current) use of aspirin; Z79.899 Other long term (current) drug therapy; Z87.891 Personal history of nicotine dependence; Z98.42 Cataract extraction status, left eye
CPT/HCPCS: 10009; 36415; 71045; 71046; 71275; 77012; 80048; 80053; 83690; 83735; 83880; 84484; 85025; 85379; 85610; 85730; 88305; 88341; 88342; 93005; 93306; 99285

== ENCOUNTER → 2020-06-29 | Outpatient (CLI) | payer MEDICARE, OTHER ==
--- NOTE | 2020-07-01 12:46 | PE ---
EXAMINATION TYPE: PET CT fusion skull to thigh DATE OF EXAM: 06/29/2020 COMPARISON: CT chest 06/18/2020 Prior PET/CT: None HISTORY: Solitary pulmonary nodule TECHNIQUE: Following the intravenous administration of 12.46 mCi of F-18 FDG, whole body images are performed from the skull base to the midthigh. Images are reviewed on the computer in the coronal, a xial, and sagittal planes. Reconstructed rotating images are created on independent workstation and reviewed on the computer. A localization and attenuation correction CT is performed in conjunction with the PET scan. DLP: 319.56 mGycm SCAN: Initial Blood glucose: 127 mg/dL Average Mediastinum SUV: 1.73 Average Liver SUV: 2.39 FINDINGS: NECK: No abnormal uptake THORAX: There is intense uptake within the left suprahilar region with an SUV value of 10.08 compatib le with neoplasm. PET image 91. There is a mass within the posterior medial left midlung with activity measuring 6.58. PET image 98. Findings are compatible with neoplasm. A prominent lymph node within the medial aortopulmonic window region, PET image 83, has an SUV value 2.42. Metastasis is not excluded. ABDOMEN: No suspicious uptake. There is increased activity within bowel which can be normal. This cou ld make underlying identification of neoplasm difficult. No focal suspicious uptake within bowel loop s is evident. No suspicious radiotracer within the adrenal glands is identified. PELVIS: No abnormal uptake OSSEOUS STRUCTURES: No abnormal uptake LOCALIZATION CT: Some left apical scarring is present. The SUV value 0.81 and is less likely neoplasm . The posterior medial left midlung mass measures 4.1 x 2.9 cm on this examination. Some pleural inva lion cannot be excluded. COMPARISON: No significant change from CTA chest is evident. IMPRESSION: 1. Lung mass posterior medial left lung compatible with neoplasm. 2. Left suprahilar hyperintense metastatic lesion with subtle possible early metastasis within the ao rtopulmonic window lymph node. 3. Distant metastasis is not otherwise evident below the diaphragm.
== END | disposition home or self-care (01) ==
LOC: RADPETMAIN 15:21
PROVIDERS: ATTEND Internal Medicine
DX: C34.82 Malignant neoplasm of overlapping sites of left bronchus and lung (principal)
CPT/HCPCS: 78815; A9552

== ENCOUNTER → 2020-07-06 | Outpatient (CLI) | payer MEDICARE, OTHER ==
--- NOTE | 2020-07-06 22:34 | MR ---
EXAMINATION TYPE: MR brain wo/w con DATE OF EXAM: 07/06/2020 COMPARISON: None HISTORY: Lung Ca CONTRAST: Performed utilizing 6.5 mL intravenous Gadavist gadolinium contrast. TECHNIQUE: Multiplanar, multiecho imaging on a 3.0 Tena magnet is performed through the brain. Stud y is performed within 24 hours of arrival to the hospital. The craniovertebral junction is normal. The pituitary is normal. Diffusion-weighted imaging is performed. No abnormal hyperintensity is present to suggest an acute i ntracranial infarct or acute ischemic change. There are scattered punctate areas of hyperintensity on T2 and Inversion Recovery weighted sequences which are non-specific but can be related to microvascular ischemic changes. Largest lesion is within the left kaur radiata and measures 0.6 x 0.7 cm. Series 501 image 19 Ventricles and sulci are appropriate for the patient age. There is a retention cyst within the left maxillary sinus. IMPRESSIONS: 1. Scattered nonspecific white matter changes. Differential diagnosis includes but is not limited to microvascular ischemic change and multiple sclerosis. 2. No suspicious enhancing lesions to suggest metastatic disease.
== END | disposition home or self-care (01) ==
LOC: RADMRIMAIN 09:37
PROVIDERS: ATTEND Internal Medicine Hematology & Oncology
DX: R90.82 White matter disease, unspecified (principal); C34.32 Malignant neoplasm of lower lobe, left bronchus or lung
CPT/HCPCS: 70553; A9585

== ENCOUNTER 2020-09-16 18:49 | Inpatient (IN) | payer MEDICARE, OTHER ==
[2020-09-16] MEDS ORDERED: SODIUM CHLORIDE 0.9% 1,000 ML IV STA ×2 (19:05→21:53)
[2020-09-16] MEDS ORDERED: ONDANSETRON 4 MG/2 ML VIAL IVP STA (19:05)
[2020-09-16] MEDS ORDERED: MORPHINE SULFATE 4 MG/ML SYRINGE IV STA (19:05)
--- NOTE | 2020-09-16 19:05 | ED ---
Weakness HPI - General Chief complaint: Weakness Stated complaint: weakness, vomiting, diarrhea Time Seen by Provider: 09/16/20 19:03 Source: patient, EMS, RN notes reviewed, old records reviewed Mode of arrival: EMS Limitations: no limitations - History of Present Illness Initial comments: This is a 80-year-old male accepted in transfer. Patient accepted in transfer persistent weakness presents outside facility was diagnosed with pneumonia elevated lactic acid etc. Patient states he just feels weak is unable to eat or drink, patient is going to chemotherapy, cancer. Patient has otherwise no fevers no travel history no sick contacts that he knows. Multiple recent hospital admissions MD Complaint: generalized weakness, lack of energy -: days(s) Location: generalized Severity: severe Severity scale (1-10): 8 Consistency: constant Improves with: none Worsens with: none Context: history of similar Associated Symptoms: loss of appetite, nausea/vomiting - Related Data Home Medications Medication Instructions Recorded Confirmed Aspirin EC [Ecotrin Low Dose] 81 mg PO HS 06/18/20 09/16/20 Cholecalciferol [Vitamin D3 (25 5,000 unit PO DAILY 06/18/20 09/16/20 Mcg = 1000 Iu)] Lisinopril [Zestril] 10 mg PO DAILY 06/18/20 09/16/20 Simvastatin [Zocor] 20 mg PO HS 06/18/20 09/16/20 metFORMIN HCL ER [Glucophage Xr] 1,000 mg PO BID 06/18/20 09/16/20 Hydrocodone/Acetaminophen [[place] 1 tab PO Q6H PRN 07/24/20 09/16/20 7.5-325] Ondansetron HCl [Zofran] 4 mg PO Q6HR PRN 07/24/20 09/16/20 dronabinoL [Marinol] 5 mg PO HS 07/24/20 09/16/20 traMADol HCL [Ultram] 50 mg PO Q6HR PRN 08/28/20 09/16/20 Famotidine [Pepcid] 20 mg PO BID 09/16/20 09/16/20 Allergies Allergy/AdvReac Type Severity Reaction Status Date / Time No Known Allergies Allergy Verified 09/16/20 21:38 Review of Systems ROS Statement: Those systems with pertinent positive or pertinent negative responses have been documented in the HPI. ROS Other: All systems not noted in ROS Statement are negative. Past Medical History Past Medical History: Cancer, Diabetes Mellitus Additional Past Medical History / Comment(s): LEFT LOWER LOBE NSCLC. History of Any Multi-Drug Resistant Organisms: None Reported Past Surgical History: No Surgical Hx Reported Additional Past Surgical History / Comment(s): Cataract SURGERY. LEFT LUNG BI OPSY Past Anesthesia/Blood Transfusion Reactions: No Reported Reaction Past Psychological History: No Psychological Hx Reported Smoking Status: Former smoker Past Alcohol Use History: None Reported Past Drug Use History: None Reported General Exam Limitations: no limitations General appearance: alert, in no apparent distress, anxious Head exam: Present: atraumatic, normocephalic, normal inspection Eye exam: Present: normal appearance, PERRL, EOMI. Absent: scleral icterus, conjunctival injection, periorbital swelling ENT exam: Present: normal exam, mucous membranes moist Neck exam: Present: normal inspection. Absent: tenderness, meningismus, lymphadenopathy Respiratory exam: Present: normal lung sounds bilaterally. Absent: respiratory distress, wheezes, rales, rhonchi, stridor Cardiovascular Exam: Present: normal rhythm, tachycardia, normal heart sounds. Absent: systolic murmur, diastolic murmur, rubs, gallop, clicks GI/Abdominal exam: Present: soft, normal bowel sounds. Absent: distended, tenderness, guarding, rebound, rigid Extremities exam: Present: normal inspection, full ROM, normal capillary refill. Absent: tenderness, pedal edema, joint swelling, calf tenderness Back exam: Present: normal inspection Neurological exam: Present: alert, oriented X3, CN II-XII intact Psychiatric exam: Present: normal affect, normal mood Skin exam: Present: warm, dry, intact, normal color. Absent: rash Course Vital Signs 09/16/20 09/16/20 09/16/20 18:56 19:02 21:57 Temperature 97.6 F Pulse Rate 108 H 109 H Pulse Rate [ 107 H Cra Officer ] Respiratory 17 18 Rate Blood Pressure 154/58 137/39 O2 Sat by Pulse 98 99 Oximetry - Reevaluation(s) Reevaluation #1: 09/16/20 22:01 Record is reviewed 09/16/20 22:01 Spoke with transferring physician 09/16/20 22:01 Review transfer paperwork thoroughly Reevaluation #2: 09/16/20 22:02 Patient is in no distress has no significant complaint - Consultations Consultation #1: Spoke with PMH were agreeable to admit the patient EKG Findings - EKG Comments: EKG Findings:: EKG is sinus tach rate of 107 FL 158 QRS 66 and QTC 435 Medical Decision Making - Lab Data Result diagrams: 09/16/20 20:53 09/16/20 20:53 Lab Results 09/16/20 09/16/20 09/16/20 Range/Units 20:53 20:53 20:53 WBC 27.3 H (3.8-10.6) k/uL RBC 3.68 L (4.30-5.90) m/uL Hgb 10.8 L (13.0-17.5) gm/dL Hct 35.0 L (39.0-53.0) % MCV 95.2 (80.0-100.0) fL MCH 29.3 (25.0-35.0) pg MCHC 30.8 L (31.0-37.0) g/dL RDW 19.9 H (11.5-15.5) % Plt Count 250 (150-450) k/uL Hypochromasia Marked Anisocytosis Slight Macrocytosis Slight PT 11.9 (9.0-12.0) sec INR 1.2 H (<1.2) APTT 23.3 (22.0-30.0) sec Sodium 136 L (137-145) mmol/L Potassium 5.4 H (3.5-5.1) mmol/L Chloride 106 (98-107) mmol/L Carbon Dioxide 11 L (22-30) mmol/L Anion Gap 19 mmol/L BUN 21 H (9-20) mg/dL Creatinine 1.53 H (0.66-1.25) mg/dL Est GFR (CKD-EPI)AfAm 50 (>60 ml/min/1.73 sqM) Est GFR (CKD-EPI)NonAf 43 (>60 ml/min/1.73 sqM) Glucose 191 H (74-99) mg/dL Plasma Lactic Acid Ba (0.7-2.0) mmol/L Calcium 8.4 (8.4-10.2) mg/dL Phosphorus 4.5 (2.5-4.5) mg/dL Magnesium 1.1 L (1.6-2.3) mg/dL Total Bilirubin 0.3 (0.2-1.3) mg/dL AST 25 (17-59) U/L ALT 13 (4-49) U/L Alkaline Phosphatase 57 (38-126) U/L Creatine Kinase 209 H (55-170) U/L Troponin I (0.000-0.034) ng/mL NT-Pro-B Natriuret Pep pg/mL Total Protein 5.8 L (6.3-8.2) g/dL Albumin 3.0 L (3.5-5.0) g/dL 09/16/20 09/16/20 09/16/20 Range/Units 20:53 20:53 20:53 WBC (3.8-10.6) k/uL RBC (4.30-5.90) m/uL Hgb (13.0-17.5) gm/dL Hct (39.0-53.0) % MCV (80.0-100.0) fL MCH (25.0-35.0) pg MCHC (31.0-37.0) g/dL RDW (11.5-15.5) % Plt Count (150-450) k/uL Hypochromasia Anisocytosis Macrocytosis PT (9.0-12.0) sec INR (<1.2) APTT (22.0-30.0) sec Sodium (137-145) mmol/L Potassium (3.5-5.1) mmol/L Chloride (98-107) mmol/L Carbon Dioxide (22-30) mmol/L Anion Gap mmol/L BUN (9-20) mg/dL Creatinine (0.66-1.25) mg/dL Est GFR (CKD-EPI)AfAm (>60 ml/min/1.73 sqM) Est GFR (CKD-EPI)NonAf (>60 ml/min/1.73 sqM) Glucose (74-99) mg/dL Plasma Lactic Acid Ba 9.1 H* (0.7-2.0) mmol/L Calcium (8.4-10.2) mg/dL Phosphorus (2.5-4.5) mg/dL Magnesium (1.6-2.3) mg/dL Total Bilirubin (0.2-1.3) mg/dL AST (17-59) U/L ALT (4-49) U/L Alkaline Phosphatase (38-126) U/L Creatine Kinase (55-170) U/L Troponin I <0.012 (0.000-0.034) ng/mL NT-Pro-B Natriuret Pep 1170 pg/mL Total Protein (6.3-8.2) g/dL Albumin (3.5-5.0) g/dL Disposition Clinical Impression: Dehydration, Pneumonia, Leukocytosis, Lactic acidosis Disposition: ADMITTED IP TO THIS HOSP Condition: Fair Is patient prescribed a controlled substance at d/c from ED?: No Referrals: Jan Nunez MD [Primary Care Provider] - 1-2 days
[2020-09-16 21:17] LABS: Calcium 8.4 mg/dL (8.4-10.2); Magnesium 1.1 mg/dL (1.6-2.3); Phosphorus 4.5 mg/dL (2.5-4.5); Potassium 5.4 mmol/L (3.5-5.1); Total Bilirubin 0.3 mg/dL (0.2-1.3); Total Protein 5.8 g/dL (6.3-8.2)
[2020-09-16 21:26] LABS: Anisocytosis Slight; HGB 10.8 gm/dL (13.0-17.5); Hypochromasia Marked; MCH 29.3 pg (25.0-35.0); MCHC 30.8 g/dL (31.0-37.0); MCV 95.2 fL (80.0-100.0); Macrocytosis Slight; Mean Platelet Volume 7.3; Platelet Count 250 k/uL (150-450); RBC 3.68 m/uL (4.30-5.90); RDW 19.9 % (11.5-15.5); WBC 27.3 k/uL (3.8-10.6)
[2020-09-16 21:27] LABS: INR 1.2 (<1.2)
[2020-09-16 21:28] LABS: Partial Thromboplastin Time 23.3 sec (22.0-30.0); Prothrombin Time 11.9 sec (9.0-12.0)
[2020-09-16] MEDS ORDERED: SODIUM CHLORIDE 0.9% 2,000 ML IV STA (21:53)
[2020-09-16] MEDS ORDERED: AZITHROMYCIN 500 MG in SODIUM CHLORIDE 0.9% 250 ML IVPB STA (21:58)
[2020-09-16] MEDS ORDERED: PIPERACILLIN-TAZOBACTAM 3.375 GM in SODIUM CHLORIDE 0.9% 100 ML IVPB STA (21:58)
[2020-09-16] MEDS ORDERED: PNEUMONIA PROTOCOL UTILIZED 1 EACH MISC PO PRN (21:58)
[2020-09-16 22:07] LABS: Band Neutrophils % 2 %; Monocytes # (M) 1.37 k/uL (0-1.0); Neutrophils % (M) 93 %; Nucleated Red Blood Cells 0 /100 WBC (0-0); Polychromasia Present; Total Cells Counted 100
[2020-09-16] MEDS: SODIUM CHLORIDE 0.9% 1,000 ML IV SCH (23:07)
[2020-09-17] MEDS: PIPERACILLIN-TAZOBACTAM 3.375 GM in SODIUM CHLORIDE 0.9% 100 ML IVPB SCH ×3 (06:33→22:20)
--- NOTE | 2020-09-17 07:29 | XR ---
EXAMINATION TYPE: XR chest 2V DATE OF EXAM: 09/17/2020 COMPARISON: 06/19/2020 HISTORY: Shortness of breath TECHNIQUE: Frontal and lateral views of the chest are obtained. FINDINGS: Scattered senescent parenchymal changes noted. Hyperinflation compatible with COPD. Left perihilar infiltrate noted. Nodular prominence identified as well. Heart size is stable. Mediastinal structures are stable and grossly unremarkable. No evidence for hilar prominence. Degenerative changes dorsal spine. IMPRESSION: 1. Suspect left hilar mass. Surrounding interstitial prominence may reflect underlying developing pne umonia.
[2020-09-17] MEDS ORDERED: HYDROcodone/APAP 7.5-325MG 1 EACH TAB PO PRN (11:08)
[2020-09-17] MEDS ORDERED: traMADol 50 MG TAB PO PRN (11:08)
[2020-09-17] MEDS ORDERED: ONDANSETRON 4 MG/2 ML VIAL IVP PRN (11:10)
[2020-09-17 11:38] LABS: African American GFR (CKD) 49 (>60 ml/min/1.73 sqM); Anion Gap 12 mmol/L; Blood Urea Nitrogen 23 mg/dL (9-20); Calcium 7.7 mg/dL (8.4-10.2); Carbon Dioxide 13 mmol/L (22-30); Chloride 112 mmol/L (98-107); Glucose 210 mg/dL (74-99); Non-African American GFR(CKD) 43 (>60 ml/min/1.73 sqM); Potassium 5.1 mmol/L (3.5-5.1); Sodium 137 mmol/L (137-145)
[2020-09-17] MEDS: NYSTATIN 100,000 UNIT/ML SUSP 500,000 UNIT/5 ML CUP PO SCH ×3 (14:55→22:20)
[2020-09-17] MEDS: PANTOPRAZOLE 40 MG TABLET PO SCH (14:56)
[2020-09-17] MEDS: MAGNESIUM SULFATE-D5W PMX 1 GM in DEXTROSE/WATER 1 100ML.BAG IVPB SCH ×3 (14:56→18:22)
[2020-09-17 15:17] LABS: Anisocytosis Slight; Basophils # (A) 0.1 k/uL (0-0.2); Basophils % (A) 0 %; Eosinophils # (A) 0.1 k/uL (0-0.7); Eosinophils % (A) 1 %; HCT 31.9 % (39.0-53.0); HGB 9.9 gm/dL (13.0-17.5); Hypochromasia Marked; Lymphocytes # (A) 0.4 k/uL (1.0-4.8); Lymphocytes % (A) 1 %; MCHC 31.1 g/dL (31.0-37.0); MCV 96.4 fL (80.0-100.0); Macrocytosis Slight; Mean Platelet Volume 9.4; Monocytes # (A) 0.7 k/uL (0-1.0); Monocytes % (A) 3 %; Neutrophils % (A) 95 %; Platelet Count 237 k/uL (150-450); RBC 3.31 m/uL (4.30-5.90); RDW 19.7 % (11.5-15.5); WBC 25.4 k/uL (3.8-10.6)
--- NOTE | 2020-09-17 15:32 | P.HPIM ---
History of Present Illness Patient is a pleasant 80-year-old male came in as he felt dehydrated unable to eat anything severe loss of appetite. Patient was recently diagnosed with lung cancer and recently received chemotherapy. Patient is found to have highly elevated lactic acid 08 which now came down to 2.6. Patient also had acute renal failure with elevated creatinine 1.54. Patient was initially admitted for dehydration although patient is found to have leukocytosis. Patient doesn't have any fever. Patient was tested for the coronavirus and influenza which are negative. Chest x-ray showed a hilar mass no obvious infiltrate consistent with the pneumonia patient denied any symptoms of pneumonia patient doesn't have a UA which was ordered patient denied any UTI symptoms either. Infection is evident patient was started on antibodies which will be continued for now. Unsure whether patient received colony-stimulating factor after chemotherapy which may be the reason why he he has a leukocytosis. Patient was complaining of significant a fatigue yesterday. This improved now. Patient is tachycardic as well. Review of Systems REVIEW OF SYSTEMS: CONSTITUTIONAL: No fever. HEENT: No recent visual problems or hearing problems. Denied any sore throat. CARDIOVASCULAR: No chest pain, orthopnea, PND, no palpitations, no syncope. PULMONARY: No shortness of breath, no cough, no hemoptysis. GASTROINTESTINAL: No diarrhea, no nausea, no vomiting, no abdominal pain. NEUROLOGICAL: No headaches, no weakness, no numbness. HEMATOLOGICAL: Denies any bleeding or petechiae. GENITOURINARY: Denies any burning micturition, frequency, or urgency. MUSCULOSKELETAL/RHEUMATOLOGICAL: Denies any joint pain, swelling, or any muscle pain. ENDOCRINE: Denies any polyuria or polydipsia. The rest of the 14-point review of systems is negative. Past Medical History Past Medical History: Cancer, Diabetes Mellitus Additional Past Medical History / Comment(s): LEFT LOWER LOBE NSCLC. History of Any Multi-Drug Resistant Organisms: None Reported Past Surgical History: No Surgical Hx Reported Additional Past Surgical History / Comment(s): Cataract SURGERY. LEFT LUNG BIOPSY Past Anesthesia/Blood Transfusion Reactions: No Reported Reaction Past Psychological History: No Psychological Hx Reported Smoking Status: Former smoker Past Alcohol Use History: None Reported Past Drug Use History: None Reported - Past Family History Mother Family Medical History: Cancer Additional Family Medical History / Comment(s): Pancreatic cancer Medications and Allergies Home Medications Medication Instructions Recorded Confirmed Type Aspirin EC [Ecotrin Low Dose] 81 mg PO HS 06/18/20 09/16/20 History Cholecalciferol [Vitamin D3 (25 5,000 unit PO DAILY 06/18/20 09/16/20 History Mcg = 1000 Iu)] Lisinopril [Zestril] 10 mg PO DAILY 06/18/20 09/16/20 History Simvastatin [Zocor] 20 mg PO HS 06/18/20 09/16/20 History metFORMIN HCL ER [Glucophage Xr] 1,000 mg PO BID 06/18/20 09/16/20 History Hydrocodone/Acetaminophen [[place] 1 tab PO Q6H PRN 07/24/20 09/16/20 History 7.5-325] Ondansetron HCl [Zofran] 4 mg PO Q6HR PRN 07/24/20 09/16/20 History dronabinoL [Marinol] 5 mg PO HS 07/24/20 09/16/20 History traMADol HCL [Ultram] 50 mg PO Q6HR PRN 08/28/20 09/16/20 History Famotidine [Pepcid] 20 mg PO BID 09/16/20 09/16/20 History Allergies Allergy/AdvReac Type Severity Reaction Status Date / Time No Known Allergies Allergy Verified 09/16/20 21:38 Physical Exam Vitals: Vital Signs Temp Pulse Pulse Resp BP Pulse Ox 09/17/20 09:30 107 H 20 09/17/20 08:14 98.1 F 100 20 124/64 99 09/17/20 06:07 109 H 19 148/63 98 09/17/20 02:29 110 H 18 138/69 98 09/16/20 21:57 109 H 18 137/39 99 09/16/20 19:02 107 H 09/16/20 18:56 97.6 F 108 H 17 154/58 98 Intake and Output 09/17/20 09/17/20 09/17/20 06:59 14:59 22:59 Other: Voiding Method Toilet Weight 54.885 kg PHYSICAL EXAMINATION: GENERAL: The patient is alert and oriented x3, not in any acute distress. Well developed, well nourished. HEENT: Pupils are round and equally reacting to light. EOMI. No scleral icterus. No conjunctival pallor. Normocephalic, atraumatic. No pharyngeal erythema. No thyromegaly. She does have oral thrush CARDIOVASCULAR: S1 and S2 present. No murmurs, rubs, or gallops. PULMONARY: Chest is clear to auscultation, no wheezing or crackles. ABDOMEN: Soft, nontender, nondistended, normoactive bowel sounds. No palpable organomegaly. MUSCULOSKELETAL: No joint swelling or deformity. EXTREMITIES: No cyanosis, clubbing, or pedal edema. NEUROLOGICAL: Gross neurological examination did not reveal any focal deficits. SKIN: No rashes. Results CBC & Chem 7: 09/17/20 09:37 09/17/20 09:37 Labs: Abnormal Lab Results - Last 24 Hours (Table) 09/16/20 09/16/20 09/16/20 Range/Units 20:53 20:53 20:53 WBC 27.3 H (3.8-10.6) k/uL RBC 3.68 L (4.30-5.90) m/uL Hgb 10.8 L (13.0-17.5) gm/dL Hct 35.0 L (39.0-53.0) % MCHC 30.8 L (31.0-37.0) g/dL RDW 19.9 H (11.5-15.5) % Neutrophils # (1.3-7.7) k/uL Neutrophils # (Manual) 25.90 H (1.3-7.7) k/uL Lymphocytes # (1.0-4.8) k/uL Monocytes # (Manual) 1.37 H (0-1.0) k/uL INR 1.2 H (<1.2) Sodium 136 L (137-145) mmol/L Potassium 5.4 H (3.5-5.1) mmol/L Chloride (98-107) mmol/L Carbon Dioxide 11 L (22-30) mmol/L BUN 21 H (9-20) mg/dL Creatinine 1.53 H (0.66-1.25) mg/dL Glucose 191 H (74-99) mg/dL Plasma Lactic Acid Ba (0.7-2.0) mmol/L Calcium (8.4-10.2) mg/dL Magnesium 1.1 L (1.6-2.3) mg/dL Creatine Kinase 209 H (55-170) U/L Total Protein 5.8 L (6.3-8.2) g/dL Albumin 3.0 L (3.5-5.0) g/dL 09/16/20 09/17/20 09/17/20 Range/Units 20:53 00:00 03:04 WBC (3.8-10.6) k/uL RBC (4.30-5.90) m/uL Hgb (13.0-17.5) gm/dL Hct (39.0-53.0) % MCHC (31.0-37.0) g/dL RDW (11.5-15.5) % Neutrophils # (1.3-7.7) k/uL Neutrophils # (Manual) (1.3-7.7) k/uL Lymphocytes # (1.0-4.8) k/uL Monocytes # (Manual) (0-1.0) k/uL INR (<1.2) Sodium (137-145) mmol/L Potassium (3.5-5.1) mmol/L Chloride (98-107) mmol/L Carbon Dioxide (22-30) mmol/L BUN (9-20) mg/dL Creatinine (0.66-1.25) mg/dL Glucose (74-99) mg/dL Plasma Lactic Acid Ba 9.1 H* 7.6 H* 4.0 H* (0.7-2.0) mmol/L Calcium (8.4-10.2) mg/dL Magnesium (1.6-2.3) mg/dL Creatine Kinase (55-170) U/L Total Protein (6.3-8.2) g/dL Albumin (3.5-5.0) g/dL 09/17/20 09/17/20 09/17/20 Range/Units 06:46 09:37 09:37 WBC 25.4 H (3.8-10.6) k/uL RBC 3.31 L (4.30-5.90) m/uL Hgb 9.9 L (13.0-17.5) gm/dL Hct 31.9 L (39.0-53.0) % MCHC (31.0-37.0) g/dL RDW 19.7 H (11.5-15.5) % Neutrophils # 24.0 H (1.3-7.7) k/uL Neutrophils # (Manual) (1.3-7.7) k/uL Lymphocytes # 0.4 L (1.0-4.8) k/uL Monocytes # (Manual) (0-1.0) k/uL INR (<1.2) Sodium (137-145) mmol/L Potassium (3.5-5.1) mmol/L Chloride 112 H (98-107) mmol/L Carbon Dioxide 13 L (22-30) mmol/L BUN 23 H (9-20) mg/dL Creatinine 1.54 H (0.66-1.25) mg/dL Glucose 210 H (74-99) mg/dL Plasma Lactic Acid Ba 2.6 H* (0.7-2.0) mmol/L Calcium 7.7 L (8.4-10.2) mg/dL Magnesium 1.0 L (1.6-2.3) mg/dL Creatine Kinase (55-170) U/L Total Protein (6.3-8.2) g/dL Albumin (3.5-5.0) g/dL Thrombosis Risk Factor Assmnt - Choose All That Apply Any of the Below Risk Factors Present?: Yes Each Factor Represents 1 point: Medical pt on bed rest Other Risk Factors: Yes Each Risk Factor Represents 3 Points: Age 75 years or older Thrombosis Risk Factor Assessment Total Risk Factor Score: 4 Thrombosis Risk Factor Assessment Level: Moderate Risk Assessment and Plan Plan: -Generalized fatigue: Secondary to dehydration, pulmonary malignancy. Infection cannot be completely ruled out. Patient will be continued on empiric antibiotics, Zosyn although source off infection is not clearly evident at this time. -Leukocytosis: Unsure whether it's secondary to infection or secondary to GM- CSF. Unsure whether patient received GM-CSF factor. We will obtain urinalysis as well. Blood cultures will be obtained. Repeat CBC and a basic metabolic profile tomorrow -Acute renal failure secondary to dehydration which is again secondary to nausea vomiting and poor by mouth intake patient will be continued on IV fluids -Lactic acidosis is either secondary to sepsis or dehydration. -Hypomagnesemia secondary to poor by mouth intake magnesium will be replaced -Hyperkalemia secondary to acute renal failure expected to improve with IV fluids -Lung cancer: Patient recently received chemotherapy -Mucositis and oral thrush secondary to chemotherapy will order nystatin -Poor appetite secondary to cancer and chemo patient is receiving Marinol. -DVT prophylaxis Lovenox
[2020-09-17 15:50] VITALS: BMI 18.3
[2020-09-17 17:02] LABS: Glucose,Whole Blood 174 mg/dL (75-99)
--- NOTE | 2020-09-17 18:08 | P.CONS ---
History of Present Illness - Reason for Consult Consult date: 09/17/20 Lung Cancer on treatment Requesting physician: Reuben Zarate - Chief Complaint Diarrhea and nausea - History of Present Illness Jordan presented with L sided posterior chest pain X 2 months associated with anorexia and 20 lbs weight loss, CXR and CT Scan of chest revealed L Hilar mass (3.9X3.1X4.0 cm) pleural-based along with R hilar lymphadenopathy (3.2X2.4 cm). PET Jj revealed positive uptake at both sites, no distant metastatic lesions seen. 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 Eyad smoked 2and 1/2 PPD X 45 years, quit smoking 16 years ago, he was exposed to agent [place] while serving in [employer]. 08/09/20: feels Ok, tolerating concurrent Radiation therapy/Chemotherapy (Weekly carboplatinum+Taxol) very well with minimal side effects (Fatigue), continues to have L lower chest pain (controlled by Lee) 08/30/20: COmpleted chemo and radiation. He had been feeling overall better until the past week. He has not had appetite, diarrhea with occassional accidents. Nausea and vomiting. He presented to emergency and was found to be dehydrated. Telemedicine visit today, spoke to patient and . states he has been complaining left shoulder pain over the past few days as well. Increase in WBCs Review of Systems All systems: negative Constitutional: Reports as per HPI Past Medical History Past Medical History: Cancer, Diabetes Mellitus Additional Past Medical History / Comment(s): LEFT LOWER LOBE NSCLC. History of Any Multi-Drug Resistant Organisms: None Reported Past Surgical History: No Surgical Hx Reported Additional Past Surgical History / Comment(s): Cataract SURGERY. LEFT LUNG BIOPSY Past Anesthesia/Blood Transfusion Reactions: No Reported Reaction Past Psychological History: No Psychological Hx Reported Smoking Status: Former smoker Past Alcohol Use History: None Reported Past Drug Use History: None Reported - Past Family History Mother Family Medical History: Cancer Additional Family Medical History / Comment(s): Pancreatic cancer Medications and Allergies Home Medications Medication Instructions Recorded Confirmed Type Aspirin EC [Ecotrin Low Dose] 81 mg PO HS 06/18/20 09/16/20 History Cholecalciferol [Vitamin D3 (25 5,000 unit PO DAILY 06/18/20 09/16/20 History Mcg = 1000 Iu)] Lisinopril [Zestril] 10 mg PO DAILY 06/18/20 09/16/20 History Simvastatin [Zocor] 20 mg PO HS 06/18/20 09/16/20 History metFORMIN HCL ER [Glucophage Xr] 1,000 mg PO BID 06/18/20 09/16/20 History Hydrocodone/Acetaminophen [[place] 1 tab PO Q6H PRN 07/24/20 09/16/20 History 7.5-325] Ondansetron HCl [Zofran] 4 mg PO Q6HR PRN 07/24/20 09/16/20 History dronabinoL [Marinol] 5 mg PO HS 07/24/20 09/16/20 History traMADol HCL [Ultram] 50 mg PO Q6HR PRN 08/28/20 09/16/20 History Famotidine [Pepcid] 20 mg PO BID 09/16/20 09/16/20 History Allergies Allergy/AdvReac Type Severity Reaction Status Date / Time No Known Allergies Allergy Verified 09/16/20 21:38 Physical Exam Vitals: Vital Signs Temp Pulse Pulse Resp BP Pulse Ox 09/17/20 09:30 107 H 20 09/17/20 08:14 98.1 F 100 20 124/64 99 09/17/20 06:07 109 H 19 148/63 98 09/17/20 02:29 110 H 18 138/69 98 09/16/20 21:57 109 H 18 137/39 99 09/16/20 19:02 107 H 09/16/20 18:56 97.6 F 108 H 17 154/58 98 Intake and Output 09/16/20 09/17/20 09/17/20 22:59 06:59 14:59 Other: Voiding Method Toilet Weight 54.885 kg 54.885 kg Results CBC & Chem 7: 09/17/20 09:37 09/17/20 09:37 Labs: Abnormal Lab Results - Last 24 Hours (Table) 09/16/20 09/16/20 09/16/20 Range/Units 20:53 20:53 20:53 WBC 27.3 H (3.8-10.6) k/uL RBC 3.68 L (4.30-5.90) m/uL Hgb 10.8 L (13.0-17.5) gm/dL Hct 35.0 L (39.0-53.0) % MCHC 30.8 L (31.0-37.0) g/dL RDW 19.9 H (11.5-15.5) % Neutrophils # (Manual) 25.90 H (1.3-7.7) k/uL Monocytes # (Manual) 1.37 H (0-1.0) k/uL INR 1.2 H (<1.2) Sodium 136 L (137-145) mmol/L Potassium 5.4 H (3.5-5.1) mmol/L Chloride (98-107) mmol/L Carbon Dioxide 11 L (22-30) mmol/L BUN 21 H (9-20) mg/dL Creatinine 1.53 H (0.66-1.25) mg/dL Glucose 191 H (74-99) mg/dL Plasma Lactic Acid Ba (0.7-2.0) mmol/L Calcium (8.4-10.2) mg/dL Magnesium 1.1 L (1.6-2.3) mg/dL Creatine Kinase 209 H (55-170) U/L Total Protein 5.8 L (6.3-8.2) g/dL Albumin 3.0 L (3.5-5.0) g/dL 09/16/20 09/17/20 09/17/20 Range/Units 20:53 00:00 03:04 WBC (3.8-10.6) k/uL RBC (4.30-5.90) m/uL Hgb (13.0-17.5) gm/dL Hct (39.0-53.0) % MCHC (31.0-37.0) g/dL RDW (11.5-15.5) % Neutrophils # (Manual) (1.3-7.7) k/uL Monocytes # (Manual) (0-1.0) k/uL INR (<1.2) Sodium (137-145) mmol/L Potassium (3.5-5.1) mmol/L Chloride (98-107) mmol/L Carbon Dioxide (22-30) mmol/L BUN (9-20) mg/dL Creatinine (0.66-1.25) mg/dL Glucose (74-99) mg/dL Plasma Lactic Acid Ba 9.1 H* 7.6 H* 4.0 H* (0.7-2.0) mmol/L Calcium (8.4-10.2) mg/dL Magnesium (1.6-2.3) mg/dL Creatine Kinase (55-170) U/L Total Protein (6.3-8.2) g/dL Albumin (3.5-5.0) g/dL 09/17/20 09/17/20 Range/Units 06:46 09:37 WBC (3.8-10.6) k/uL RBC (4.30-5.90) m/uL Hgb (13.0-17.5) gm/dL Hct (39.0-53.0) % MCHC (31.0-37.0) g/dL RDW (11.5-15.5) % Neutrophils # (Manual) (1.3-7.7) k/uL Monocytes # (Manual) (0-1.0) k/uL INR (<1.2) Sodium (137-145) mmol/L Potassium (3.5-5.1) mmol/L Chloride 112 H (98-107) mmol/L Carbon Dioxide 13 L (22-30) mmol/L BUN 23 H (9-20) mg/dL Creatinine 1.54 H (0.66-1.25) mg/dL Glucose 210 H (74-99) mg/dL Plasma Lactic Acid Ba 2.6 H* (0.7-2.0) mmol/L Calcium 7.7 L (8.4-10.2) mg/dL Magnesium 1.0 L (1.6-2.3) mg/dL Creatine Kinase (55-170) U/L Total Protein (6.3-8.2) g/dL Albumin (3.5-5.0) g/dL Assessment and Plan (1) Dehydration Current Visit: Yes Status: Acute Code(s): E86.0 - DEHYDRATION SNOMED Code(s): 64678653 (2) Leukocytosis Current Visit: Yes Status: Acute Code(s): D72.829 - ELEVATED WHITE BLOOD CELL COUNT, UNSPECIFIED SNOMED Code(s): 609311635 (3) Pneumonia Current Visit: Yes Status: Acute Code(s): J18.9 - PNEUMONIA, UNSPECIFIED ORGANISM SNOMED Code(s): 372710049 Plan: COntinue supportive care of fluid hydration and atiemetics Await cross cultures [facility] where he presented prior to transfer to [facility] CT C/A/P performed and essentially appeared improved with exception of increased density end of pancreas. He is diabetic. MRI to further evaluate. Left shoulder pain I feel likely related to post chemo/cancer/radiation exacerbated by now pneumonia setting - Treatment of underlying cause Leukocytosis: - Cross cultures pending Diarrhea: - C diff neg - Fecal Leukocytes positive likely inflammatory component Treatment of thrush and GERD Greater than 27 minutes review of medical record, discussion with patient .
[2020-09-17] MEDS: CHOLESTYRAMINE (WITH SUGAR) 4 GM PACKET PO SCH (18:22)
[2020-09-17] MEDS: SODIUM CHLORIDE 0.9% 1,000 ML IV SCH ×2 (18:24→22:10)
--- NOTE | 2020-09-17 19:03 | P.CONS ---
History of Present Illness - Reason for Consult Consult date: 09/17/20 Lung cancer, post chemoradiation, failure to thrive - History of Present Illness This is a 80-year-old white male well known to our service. He is followed by Dr. Garcia in the office. He presented with L sided posterior chest pain X 2 months associated with anorexia and 20 lbs weight loss, CXR and CT Scan of chest revealed L Hilar mass (3.9X3.1X4.0 cm) pleural-based along with R hilar lymphadenopathy (3.2X2.4 cm). PET Jj revealed positive uptake at both sites, no distant metastatic lesions seen. 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 He smoked 2and 1/2 PPD X 45 years, quit smoking 16 years ago, he was exposed to agent Dawson while serving in [employer]. The patient was started on treatment with concurrent chemoradiation, with weekly carboplatin and Taxol as the chemotherapy arm. We did treatment on 08/30/20. The patient was admitted because of development of multiple symptoms after completion of treatment. He has had progressive loss of appetite and very poor oral intake. He did that he had some mild nausea but this was not very prominent. Denied any vomiting. He states that he just did not feel like eating and everything tasted bad. Lack of oral intake was associated with increasing weakness. He therefore came into the emergency room, where clinical evaluation was consistent with dehydration. He also had elevated lactic acid.WBC was elevated though he had no signs or symptoms localizing for infection. He was therefore admitted for further management. Review of Systems Constitutional: Reports fatigue, Reports poor appetite, Reports weakness, Reports weight loss Eyes: denies blurred vision, denies pain Ears: deny: decreased hearing, ear discharge, earache, tinnitus Ears, nose, mouth and throat: Denies headache, Denies sore throat Cardiovascular: Reports decreased exercise tolerance Respiratory: Reports as per HPI Gastrointestinal: Reports loss of appetite, Reports nausea Genitourinary: Reports as per HPI Musculoskeletal: Reports muscle weakness Integumentary: Denies pruritus, Denies rash Neurological: Reports weakness Psychiatric: Denies anxiety, Denies depression Endocrine: Reports fatigue, Reports weight change Hematologic/Lymphatic: Reports as per HPI Past Medical History Past Medical History: Cancer, Diabetes Mellitus Additional Past Medical History / Comment(s): LEFT LOWER LOBE NSCLC. History of Any Multi-Drug Resistant Organisms: None Reported Past Surgical History: No Surgical Hx Reported Additional Past Surgical History / Comment(s): Cataract SURGERY. LEFT LUNG BIOPSY Past Anesthesia/Blood Transfusion Reactions: No Reported Reaction Past Psychological History: No Psychological Hx Reported Smoking Status: Former smoker Past Alcohol Use History: None Reported Past Drug Use History: None Reported - Past Family History Mother Family Medical History: Cancer Additional Family Medical History / Comment(s): Pancreatic cancer Medications and Allergies Home Medications Medication Instructions Recorded Confirmed Type Aspirin EC [Ecotrin Low Dose] 81 mg PO HS 06/18/20 09/16/20 History Cholecalciferol [Vitamin D3 (25 5,000 unit PO DAILY 06/18/20 09/16/20 History Mcg = 1000 Iu)] Lisinopril [Zestril] 10 mg PO DAILY 06/18/20 09/16/20 History Simvastatin [Zocor] 20 mg PO HS 06/18/20 09/16/20 History metFORMIN HCL ER [Glucophage Xr] 1,000 mg PO BID 06/18/20 09/16/20 History Hydrocodone/Acetaminophen [Mcgregor 1 tab PO Q6H PRN 07/24/20 09/16/20 History 7.5-325] Ondansetron HCl [Zofran] 4 mg PO Q6HR PRN 07/24/20 09/16/20 History dronabinoL [Marinol] 5 mg PO HS 07/24/20 09/16/20 History traMADol HCL [Ultram] 50 mg PO Q6HR PRN 08/28/20 09/16/20 History Famotidine [Pepcid] 20 mg PO BID 09/16/20 09/16/20 History Allergies Allergy/AdvReac Type Severity Reaction Status Date / Time No Known Allergies Allergy Verified 09/16/20 21:38 Physical Exam Vitals: Vital Signs Temp Pulse Pulse Pulse Resp BP BP 09/17/20 15:00 99.0 F 95 16 118/63 09/17/20 09:30 107 H 20 09/17/20 08:14 98.1 F 100 20 124/64 09/17/20 06:07 109 H 19 148/63 09/17/20 02:29 110 H 18 138/69 09/16/20 21:57 109 H 18 137/39 09/16/20 19:02 107 H 09/16/20 18:56 97.6 F 108 H 17 154/58 Pulse Ox 09/17/20 15:00 96 09/17/20 09:30 09/17/20 08:14 99 09/17/20 06:07 98 09/17/20 02:29 98 09/16/20 21:57 99 09/16/20 19:02 09/16/20 18:56 98 Intake and Output 09/17/20 09/17/20 09/17/20 06:59 14:59 22:59 Other: Voiding Method Toilet Weight 54.885 kg 54.885 kg - Constitutional General appearance: no acute distress - EENT Eyes: EOMI, PERRLA ENT: hearing grossly normal, normal oropharynx - Neck Neck: no lymphadenopathy - Respiratory Respiratory: bilateral: CTA - Cardiovascular Rhythm: regular Heart sounds: normal: S1, S2 - Gastrointestinal General gastrointestinal: normal bowel sounds, soft - Integumentary Integumentary: normal - Neurologic Neurologic: CNII-XII intact - Musculoskeletal Musculoskeletal: generalized weakness, strength equal bilaterally - Psychiatric Psychiatric: A&O x's 3, appropriate affect Results CBC & Chem 7: 09/17/20 09:37 09/17/20 09:37 Labs: Abnormal Lab Results - Last 24 Hours (Table) 09/16/20 09/16/20 09/16/20 Range/Units 20:53 20:53 20:53 WBC 27.3 H (3.8-10.6) k/uL RBC 3.68 L (4.30-5.90) m/uL Hgb 10.8 L (13.0-17.5) gm/dL Hct 35.0 L (39.0-53.0) % MCHC 30.8 L (31.0-37.0) g/dL RDW 19.9 H (11.5-15.5) % Neutrophils # (1.3-7.7) k/uL Neutrophils # (Manual) 25.90 H (1.3-7.7) k/uL Lymphocytes # (1.0-4.8) k/uL Monocytes # (Manual) 1.37 H (0-1.0) k/uL INR 1.2 H (<1.2) Sodium 136 L (137-145) mmol/L Potassium 5.4 H (3.5-5.1) mmol/L Chloride (98-107) mmol/L Carbon Dioxide 11 L (22-30) mmol/L BUN 21 H (9-20) mg/dL Creatinine 1.53 H (0.66-1.25) mg/dL Glucose 191 H (74-99) mg/dL Plasma Lactic Acid Ba (0.7-2.0) mmol/L Calcium (8.4-10.2) mg/dL Magnesium 1.1 L (1.6-2.3) mg/dL Creatine Kinase 209 H (55-170) U/L Total Protein 5.8 L (6.3-8.2) g/dL Albumin 3.0 L (3.5-5.0) g/dL 09/16/20 09/17/20 09/17/20 Range/Units 20:53 00:00 03:04 WBC (3.8-10.6) k/uL RBC (4.30-5.90) m/uL Hgb (13.0-17.5) gm/dL Hct (39.0-53.0) % MCHC (31.0-37.0) g/dL RDW (11.5-15.5) % Neutrophils # (1.3-7.7) k/uL Neutrophils # (Manual) (1.3-7.7) k/uL Lymphocytes # (1.0-4.8) k/uL Monocytes # (Manual) (0-1.0) k/uL INR (<1.2) Sodium (137-145) mmol/L Potassium (3.5-5.1) mmol/L Chloride (98-107) mmol/L Carbon Dioxide (22-30) mmol/L BUN (9-20) mg/dL Creatinine (0.66-1.25) mg/dL Glucose (74-99) mg/dL Plasma Lactic Acid Ba 9.1 H* 7.6 H* 4.0 H* (0.7-2.0) mmol/L Calcium (8.4-10.2) mg/dL Magnesium (1.6-2.3) mg/dL Creatine Kinase (55-170) U/L Total Protein (6.3-8.2) g/dL Albumin (3.5-5.0) g/dL 09/17/20 09/17/20 09/17/20 Range/Units 06:46 09:37 09:37 WBC 25.4 H (3.8-10.6) k/uL RBC 3.31 L (4.30-5.90) m/uL Hgb 9.9 L (13.0-17.5) gm/dL Hct 31.9 L (39.0-53.0) % MCHC (31.0-37.0) g/dL RDW 19.7 H (11.5-15.5) % Neutrophils # 24.0 H (1.3-7.7) k/uL Neutrophils # (Manual) (1.3-7.7) k/uL Lymphocytes # 0.4 L (1.0-4.8) k/uL Monocytes # (Manual) (0-1.0) k/uL INR (<1.2) Sodium (137-145) mmol/L Potassium (3.5-5.1) mmol/L Chloride 112 H (98-107) mmol/L Carbon Dioxide 13 L (22-30) mmol/L BUN 23 H (9-20) mg/dL Creatinine 1.54 H (0.66-1.25) mg/dL Glucose 210 H (74-99) mg/dL Plasma Lactic Acid Ba 2.6 H* (0.7-2.0) mmol/L Calcium 7.7 L (8.4-10.2) mg/dL Magnesium 1.0 L (1.6-2.3) mg/dL Creatine Kinase (55-170) U/L Total Protein (6.3-8.2) g/dL Albumin (3.5-5.0) g/dL Chest x-ray: report reviewed Assessment and Plan (1) Dehydration Narrative/Plan: This is due to decreased oral intake and associated with failure to thrive. As stated, this appears to be mostly due to loss of appetite and taste. While this became more prominent after completion of treatment this is due to the cumulative affect of treatment. It was discussed with the patient that the onset can be somewhat delayed, even after completion of treatment and can be progressive for some time before starting to get better. - There does not appear to be any definite evidence of infection. Changes noted in the on the x-ray are more likely to be postradiation. - Supportive treatment with IV hydration. - It is expected that his symptoms will improve as he gets further out from treatment. Current Visit: Yes Status: Acute Code(s): E86.0 - DEHYDRATION SNOMED Code(s): 83063803 (2) Pneumonia Narrative/Plan: The possibilities based on the x-ray appearance. Clinically this is probably less likely, as the patient does not have any specific signs or symptoms, and the x-ray appearance could be due to treatment effect. There is however reasonable to treat him with antibiotics at least in the short-term before cultures are resulted Current Visit: Yes Status: Acute Code(s): J18.9 - PNEUMONIA, UNSPECIFIED ORGANISM SNOMED Code(s): 032371880 (3) Non-small cell carcinoma of lung, left Narrative/Plan: The patient has completed the first phase of treatment that is concurrent chemoradiation. He will resume follow-up after resolution of his acute condition. Typically would have repeat imaging between 4-8 weeks after compl etion of radiation. Assuming no evidence of progression/response, usually the patient will be placed on maintenance immunotherapy. Follow-up in office with Dr. Garcia after discharge Current Visit: Yes Status: Acute Code(s): C34.92 - MALIGNANT NEOPLASM OF UNSP PART OF LEFT BRONCHUS OR LUNG SNOMED Code(s): 743652981
[2020-09-17 21:19] LABS: Glucose,Whole Blood 181 mg/dL (75-99)
[2020-09-17] MEDS ORDERED: AZITHROMYCIN 500 MG in SODIUM CHLORIDE 0.9% 250 ML IVPB SCH (21:59)
[2020-09-17] MEDS: ATORVASTATIN 10 MG TAB PO SCH (22:26)
[2020-09-17] MEDS: ASPIRIN 81 MG PO SCH (22:26)
--- NOTE | 2020-09-18 02:36 | CONS ---
CONSULTATION PULMONARY/CRITICAL CARE CONSULTATION: DATE OF CONSULTATION: September 17, 2020 This is a 80-year-old gentleman brought in by EMS. He came in with complaints of weakness and dehydration. The patient apparently sees Dr. Nunez as a primary. The patient has a recent diagnosis of non-small cell lung cancer. The patient has started chemotherapy with Dr. Garcia and also radiation therapy with Dr. Mccall. Anyway, the patient was apparently diagnosed with pneumonia and lactic acidemia and sent in to be evaluated and admitted. The patient was weak and unable to eat or drink anything. The patient is undergoing chemotherapy. He has had 4 rounds of chemotherapy and also 7 weeks of radiation therapy. Anyway, we are asked to see the patient for those reasons as mentioned above. Currently, he is lying in bed on his left side. He is awake and alert. His memory is not too good. He does not appear to be in any significant distress. HOME MEDICATIONS: His home medications are reviewed. He is on aspirin, vitamin D3, lisinopril, Zocor, metformin, [place], Zofran, Marinol, Ultram, and Pepcid. ALLERGIES: Denied. MEDICAL HISTORY: His medical history is positive for vitamin D deficiency, hypertension, hyperlipidemia, diabetes, and non-small cell lung cancer, adenocarcinoma type. He apparently has quite extensive disease and was not a candidate for surgical intervention. SURGICAL HISTORY: Surgical history includes left lung biopsy and cataract surgery. SOCIAL HISTORY: Social history is positive for previous heavy tobacco use. Does not smoke currently. Denies any alcohol or illicit drug use. FAMILY HISTORY: Noncontributory. REVIEW OF SYSTEMS: CONSTITUTIONAL: Weakness, dehydration. NEUROLOGIC: Negative. HEENT: Negative. CARDIOVASCULAR: Negative. PULMONARY: Negative. GI: Nausea, vomiting, diarrhea. : Negative. RHEUMATOLOGIC: Negative. IMMUNOLOGIC: Negative. ENDOCRINOLOGIC: Negative. DERMATOLOGIC: Negative. PHYSICAL EXAMINATION: VITAL SIGNS: Current vital signs are reviewed. Temperature is 98.1, heart rate 100, respiratory rate 16, blood pressure 118/63, mean 81, room air saturation between 96% and 99%. GENERAL: Appears in no acute distress. No audible wheezing, use of accessory muscles or conversational dyspnea. HEENT: Examination is grossly unremarkable. No supplemental oxygen noted. NECK: Supple. Full range of motion. No adenopathy. Neck veins are flat. CARDIOVASCULAR: Examination reveals regular rhythm and rate. Heart rate 95 beats per minute. S1, S2 normal. LUNGS: Reveal relatively clear breath sounds. A few scattered rhonchi. No wheezes or crackles. ABDOMEN: Soft. EXTREMITIES: Are intact. No cyanosis, clubbing, or edema. SKIN: Without rash. NEUROLOGIC: Examination is brief but nonfocal. He does have a poor memory. LABS: Labs are reviewed. White count 25.4, hemoglobin 9.9, hematocrit 31.9, platelet count 237,000. PT, INR were 11.9 and 1.2. PTT 23.3. Sodium and potassium normal. Chloride 112, CO2 of 13. Anion gap is 12. BUN and creatinine were 23 and 1.54. Lactic acid initially was 9.1, followed by 1.8. CK 209. N terminal proBNP 1170. Albumin 3. COVID testing was negative. Influenza A and B studies were negative. Microbiology is negative. Chest x-ray shows left hilar mass, with possible postobstructive pneumonia. CURRENT MEDICATIONS: Medications are reviewed. Currently, the patient is on aspirin, Lipitor, Questran, Marinol, Lovenox, fluconazole, [place], nystatin, Zofran, Protonix, Zosyn, and tramadol. ASSESSMENT: 1. Nausea, vomiting, diarrhea, weakness and dehydration, all likely secondary to ongoing chemotherapy for the patient's non-small cell lung cancer. 2. Recent diagnosis of non-small cell lung cancer, by fine-needle aspiration of the left lung mass, status post 7 weeks of radiation therapy and 4 rounds of chemotherapy. 3. History of diabetes mellitus. 4. Hypertension by history. 5. History of hyperlipidemia. 6. Vitamin D deficiency by history. 7. Anorexia/cachexia syndrome of malignancy. 8. Previous history of heavy tobacco use. PLAN: The patient appears to be having side effects with recent chemotherapy. Clinically he is doing okay today. Respiratory status is stable. He is on room air. We will continue to follow. Prognosis is guarded. No additional recommendations and suggestions are forthcoming. Medications are reviewed. MMODL / IJN: [id number] /
[2020-09-18] MEDS: SODIUM CHLORIDE 0.9% 1,000 ML IV SCH ×2 (05:20→15:17)
[2020-09-18 06:57] LABS: Glucose,Whole Blood 144 mg/dL (75-99)
[2020-09-18 07:52] LABS: Anisocytosis Moderate; Basophils % (A) 0 %; Eosinophils # (A) 0.1 k/uL (0-0.7); Eosinophils % (A) 1 %; HCT 29.5 % (39.0-53.0); HGB 9.4 gm/dL (13.0-17.5); Hypochromasia Slight; Lymphocytes # (A) 0.5 k/uL (1.0-4.8); Lymphocytes % (A) 3 %; MCH 29.7 pg (25.0-35.0); MCHC 31.9 g/dL (31.0-37.0); MCV 93.2 fL (80.0-100.0); Macrocytosis Slight; Mean Platelet Volume 7.5; Monocytes # (A) 0.5 k/uL (0-1.0); Monocytes % (A) 3 %; Neutrophils % (A) 93 %; Platelet Count 217 k/uL (150-450); RBC 3.17 m/uL (4.30-5.90); RDW 20.1 % (11.5-15.5); WBC 18.2 k/uL (3.8-10.6)
[2020-09-18] MEDS: PANTOPRAZOLE 40 MG TABLET PO SCH (07:55)
[2020-09-18] MEDS: NYSTATIN 100,000 UNIT/ML SUSP 500,000 UNIT/5 ML CUP PO SCH ×4 (07:55→21:28)
[2020-09-18] MEDS: ENOXAPARIN 40 MG/0.4 ML SYRINGE SQ SCH (07:55)
[2020-09-18] MEDS: FLUCONAZOLE 100 MG TAB PO SCH (07:55)
[2020-09-18] MEDS: CHOLESTYRAMINE (WITH SUGAR) 4 GM PACKET PO SCH ×2 (07:56→17:25)
[2020-09-18] MEDS: PIPERACILLIN-TAZOBACTAM 3.375 GM in SODIUM CHLORIDE 0.9% 100 ML IVPB SCH ×3 (07:56→23:00)
--- NOTE | 2020-09-18 10:25 | CDI ---
Documentation Clarification Form Date: 09/18/2020 09:56:17 AM From: Jia Estrella Admit Date: 09/16/2020 09:56:00 PM Patient Name: Jonas Tafoya Visit Number: [id number] Discharge Date: ATTENTION: The Clinical Documentation Specialists (CDI) and [facility] Coding Staff appreciate your assistance in clarifying documentation. Please respond to the clarification below the line at the bottom and electronically sign. The CDI & [facility] Coding staff will review the response and follow-up if needed. Please note: Queries are made part of the Legal Health Record. If you have any questions, please contact the author of this message via ITS. Dr. Reuben Zarate Poor appetite secondary to cancer and chemo patient is receiving Marinol. Is documented in the H&P 09/17 History/Risk Factors: 80-year-old male presents to the ED as a transfer diagnosed with pneumonia and elevated lactic acid. Medical history newly diagnosed non-small cell lung cancer and diabetes. Clinical Indicators: Per ED report 09/16 The patient is unable to eat or drink and is undergoing chemotherapy for newly diagnosed lung cancer. The patient has loss of appetite and nausea and vomiting. 09/17 Pulmonary consult: Anorexia / cachexia 09/16 Labs: Total protein 5.8; Albumin 3.0; Wbc 27.3, Na 136, K 5.4, BUN 21 Current BMI: 18.4kg/m Dietary Consult 09/17 Nutrition intake fair, consumed 25-50% of regular diet. Physical findings underweight. Weight 54.885kg estimated by patient height 5 ft 8in, BMI 18.3, Body Mass index underweight, BMI classification calculated ideal 70kg, Body weight % Gwynn body 78%. weight change reason decreased intake. Weight used to estimate nutritional needs: Gwynn body weight energy formula 30- 35 Kcals/Kg Energy needs 2100 -2450 Kcal. Nutrition diagnosis Inadequate oral intake nutrient specific protein and kcals. Treatment: Dietary Consult: see above: Supplements: Ensure TID Monitor daily po intake and supplement intake. Monitor chemistry labs. In your professional opinion, can you please clarify if these findings signify one of the following conditions? Mild Protein-Calorie Malnutrition Moderate Protein-Calorie Malnutrition Severe Protein-Calorie Malnutrition Other condition, please specify Unable to determine (Last Revision: May 2019) No malnutrition MTDD
[2020-09-18 10:42] LABS: African American GFR (CKD) 74.1 (60.0-200.0); Anion Gap 12.4 mmol/L (4.00-12.00); BUN/Creat Ratio 14.55 Ratio (12.00-20.00); Calcium 8.2 mg/dL (8.7-10.3); Carbon Dioxide 17.6 mmol/L (21.6-31.8); Magnesium 1.6 mg/dL (1.5-2.4); Potassium 3.9 mmol/L (3.5-5.5)
[2020-09-18 11:16] LABS: Glucose,Whole Blood 169 mg/dL (75-99)
--- NOTE | 2020-09-18 12:08 | MR ---
EXAMINATION TYPE: MR abdomen wo/w con DATE OF EXAM: 09/18/2020 COMPARISON: Outside CT abdomen and pelvis [address] June 18, 2020. PET/CT June 29 0 oh HISTORY: Possible pancreatic tail mass. Recent abnormal CT. History of lung cancer CONTRAST: Standard multiplanar, multisequence MRI departmental protocol utilizing 5.5 mL intravenous Gadavist g adolinium contrast. Imaging performed of the abdomen focusing on the pancreas. FINDINGS: Pancreas: Pancreas remains overall normal in size. Corresponding to recent CT there is new round circ umscribed lesion in the pancreatic tail measuring roughly 1.8 x 1.6 cm which I do not clearly identif y an prior PET/CT or chest CT study. The lesion is of low T1 signal and slightly low T2 signal. Dynam ic postcontrast imaging shows nonenhancement of the lesion with perhaps some thick rim-type delayed e nhancement for reference series 901 image 308. Remainder of pancreas shows no additional lesion. No d uctal dilatation. No surrounding fat stranding or fluid is present. Other: There are new tiny left greater than right pleural effusions. The liver, gallbladder, and sple en are felt within normal limits. Persistent nodular thickening to both adrenal glands with signal dr op out consistent with benign lipid rich hyperplasia. There are some simple-appearing exophytic thin- walled cyst anteriorly in the left kidney redemonstrated. No suspicious bowel dilatation. Ectatic and atherosclerotic abdominal aorta without greater than 3.0 cm aneurysm is present. No intra-abdominal ascites. Small hemangioma right T12 level noted. IMPRESSION: There is confirmation of new roughly 1.8 cm mass in the pancreatic tail in interval from June until now. Unusual MRI imaging characteristics with low T1 and T2 signal and no central enhanc ement. Debris-filled cyst or cystic lesion such as pseudocyst could have appearance. Correlate clinic ally for recent history of pancreatitis. I however favor nonenhancing solid mass and given patient's history metastatic neoplasm needs to be considered given interval finding or development from older s tudies despite atypical MRI imaging characteristics.
--- NOTE | 2020-09-18 13:49 | P.PN ---
Subjective 80-year-old male came in as he felt dehydrated unable to eat anything severe loss of appetite. Patient was recently diagnosed with lung cancer and recently received chemotherapy. Patient is found to have highly elevated lactic acid 08 which now came down to 2.6. Patient also had acute renal failure with elevated creatinine 1.54. Patient was initially admitted for dehydration although patient is found to have leukocytosis. Patient doesn't have any fever. Patient was tested for the coronavirus and influenza which are negative. Chest x-ray showed a hilar mass no obvious infiltrate consistent with the pneumonia patient denied any symptoms of pneumonia patient doesn't have a UA which was ordered patient denied any UTI symptoms either. Infection is evident patient was started on antibodies which will be continued for now. Unsure whether patient received colony-stimulating factor after chemotherapy which may be the reason why he he has a leukocytosis. Patient was complaining of significant a fatigue yesterday. This improved now. Patient is tachycardic as well. 09/18/2020 Patient is doing better still quite a bit weak. Physical therapy and outpatient and we will evaluate the patient although there is no clear source of infection patient will be continued on present antibiotics, creatinine improved to 1.1 will continue with IV fluids. Patient's white blood cell count did improve as well. Constitutional: Patient still feels he is quite weak. Cardio vascular: denied any chest pain, palpitations Gastrointestinal denied any nausea vomiting Pulmonary: Denied any shortness of breath cough Neurologic denied any new focal deficits All inpatient medications were reviewed and appropriate changes in these medications as dictated in the interval history and assessment and plan. Objective - Vital Signs Vital signs: Vital Signs Temp 98.9 F 09/18/20 07:00 Pulse 86 09/18/20 07:00 Resp 20 09/18/20 07:00 BP 134/54 09/18/20 07:00 Pulse Ox 94 L 09/18/20 07:00 Intake & Output 09/17/20 09/18/20 09/18/20 18:59 06:59 18:59 Intake Total 1100 100 200 Balance 1100 100 200 Weight 54.885 kg Intake: Intake, IV Titration 800 Amount Magnesium Sulfate-D5w Pmx 300 1 gm In Dextrose/Water 1 100ml.bag @ 100 mls/hr IVPB Q1H [facility] Rx#: [id number] Piperacillin-Tazobactam 3 200 .375 gm In Sodium Chloride 0.9% 100 ml @ 25 mls/hr IVPB Q8H [facility] Rx#: [id number] Sodium Chloride 0.9% 1, 300 000 ml @ 100 mls/hr IV . Q10H [facility] Rx#:[id number] Oral 300 100 200 Other: Voiding Method Toilet Toilet # Voids 3 3 3 - Exam PHYSICAL EXAMINATION: GENERAL: The patient is alert and oriented x3, not in any acute distress. Well developed, well nourished. HEENT: Pupils are round and equally reacting to light. EOMI. No scleral icterus. No conjunctival pallor. Normocephalic, atraumatic. No pharyngeal erythema. No thyromegaly. CARDIOVASCULAR: S1 and S2 present. No murmurs, rubs, or gallops. PULMONARY: Chest is clear to auscultation, no wheezing or crackles. ABDOMEN: Soft, nontender, nondistended, normoactive bowel sounds. No palpable organomegaly. MUSCULOSKELETAL: No joint swelling or deformity. EXTREMITIES: No cyanosis, clubbing, or pedal edema. NEUROLOGICAL: Gross neurological examination did not reveal any focal deficits. SKIN: No rashes. - Labs CBC & Chem 7: 09/18/20 07:25 09/18/20 07:25 Labs: Abnormal Lab Results - Last 24 Hours (Table) 09/17/20 09/17/20 09/17/20 Range/Units 09:37 17:02 21:17 WBC 25.4 H (3.8-10.6) k/uL RBC 3.31 L (4.30-5.90) m/uL Hgb 9.9 L (13.0-17.5) gm/dL Hct 31.9 L (39.0-53.0) % RDW 19.7 H (11.5-15.5) % Neutrophils # 24.0 H (1.3-7.7) k/uL Lymphocytes # 0.4 L (1.0-4.8) k/uL Carbon Dioxide (21.6-31.8) mmol/L Anion Gap (4.00-12.00) mmol/L Glucose (70-110) mg/dL POC Glucose (mg/dL) 174 H 181 H (75-99) mg/dL Calcium (8.7-10.3) mg/dL 09/18/20 09/18/20 09/18/20 Range/Units 06:56 07:25 07:25 WBC 18.2 H (3.8-10.6) k/uL RBC 3.17 L (4.30-5.90) m/uL Hgb 9.4 L (13.0-17.5) gm/dL Hct 29.5 L (39.0-53.0) % RDW 20.1 H (11.5-15.5) % Neutrophils # 17.0 H (1.3-7.7) k/uL Lymphocytes # 0.5 L (1.0-4.8) k/uL Carbon Dioxide 17.6 L (21.6-31.8) mmol/L Anion Gap 12.40 H (4.00-12.00) mmol/L Glucose 152 H (70-110) mg/dL POC Glucose (mg/dL) 144 H (75-99) mg/dL Calcium 8.2 L (8.7-10.3) mg/dL 09/18/20 Range/Units 11:15 WBC (3.8-10.6) k/uL RBC (4.30-5.90) m/uL Hgb (13.0-17.5) gm/dL Hct (39.0-53.0) % RDW (11.5-15.5) % Neutrophils # (1.3-7.7) k/uL Lymphocytes # (1.0-4.8) k/uL Carbon Dioxide (21.6-31.8) mmol/L Anion Gap (4.00-12.00) mmol/L Glucose (70-110) mg/dL POC Glucose (mg/dL) 169 H (75-99) mg/dL Calcium (8.7-10.3) mg/dL Assessment and Plan Plan: -Generalized fatigue: Secondary to dehydration, pulmonary malignancy. Patient is being continued on IV fluids -Leukocytosis: Patient is presently on Zosyn patient appears to have sepsis although source is not clear at this time. Continue with Zosyn. -Acute renal failure secondary to dehydration which is again secondary to nausea vomiting and poor by mouth intake patient will be continued on IV fluids -Lactic acidosis is either secondary to sepsis and dehydration improved now. -Hypomagnesemia secondary to poor by mouth intake magnesium will be replaced -Hyperkalemia secondary to acute renal failure expected to improve with IV fluids -Lung cancer: Patient recently received chemotherapy -Mucositis and oral thrush secondary to chemotherapy will order nystatin -Poor appetite secondary to cancer and chemo patient is receiving Marinol. -DVT prophylaxis Lovenox
[2020-09-18] MEDS: MAGNESIUM SULFATE-D5W PMX 1 GM in DEXTROSE/WATER 1 100ML.BAG IVPB SCH ×2 (15:22→21:27)
[2020-09-18 16:54] LABS: Glucose,Whole Blood 168 mg/dL (75-99)
--- NOTE | 2020-09-18 17:19 | P.PN ---
Subjective Progress Note Date: 09/18/20 Principal diagnosis: Weakness, dehydration 80-year-old white male patient of Dr. Nunez, with the recent diagnosis of non-small cell lung cancer patient was started on chemotherapy and radiation therapy. Patient follows with Dr. Garcia and Dr. Saunders from the [facility]. He came in with signs of weakness and dehydration, he hadn't been eating much. Admission chest x-ray showed a left hilar mass, with possible postobstructive pneumonia. Patient is mildly confused, he had lactic acidosis on presentation, with the possibility of pneumonia and sepsis. He has been afebrile since admission. He is on room air, his pulse ox is 98%, hemodynamically has been stable, has been started on antibiotics, in the form of Zosyn, he is not bringing up much sputum, oral Diflucan was added today. He is receiving IV hydration with 0.9 normal saline at a rate of 100 ML per hour, he states he is feeling better today, cytosis is improving on today's labs, white blood cell count is down to 18.2, from 27.3 on admission, hemoglobin is 9.4, sodium is 139, potassium is 3.9, CO2 is 17, renal profile has improved with hydration, BUN is down to 16 and creatinine is 1.1. No nausea vomiting diarrhea, he is producing urine. Denies any abdominal pain. Objective - Vital Signs Vital signs: Vital Signs Temp 98.3 F 09/18/20 15:00 Pulse 91 09/18/20 15:00 Resp 22 09/18/20 15:00 BP 119/70 09/18/20 15:00 Pulse Ox 98 09/18/20 15:00 Intake & Output 09/17/20 09/18/20 09/18/20 18:59 06:59 18:59 Intake Total 1100 100 200 Balance 1100 100 200 Weight 54.885 kg Intake: Intake, IV Titration 800 Amount Magnesium Sulfate-D5w Pmx 300 1 gm In Dextrose/Water 1 100ml.bag @ 100 mls/hr IVPB Q1H [facility] Rx#: [id number] Piperacillin-Tazobactam 3 200 .375 gm In Sodium Chloride 0.9% 100 ml @ 25 mls/hr IVPB Q8H [facility] Rx#: [id number] Sodium Chloride 0.9% 1, 300 000 ml @ 100 mls/hr IV . Q10H [facility] Rx#:[id number] Oral 300 100 200 Other: Voiding Method Toilet Toilet # Voids 3 3 3 - Exam GENERAL EXAM: Alert, very pleasant, 72-year-old white male, room air with a pulse ox of 90%, comfortable in no apparent distress. HEAD: Normocephalic/atraumatic. EYES: Normal reaction of pupils, equal size. Conjunctiva pink, sclera white. NOSE: Clear with pink turbinates. THROAT: No erythema or exudates. NECK: No masses, no JVD, no thyroid enlargement, no adenopathy. CHEST: No chest wall deformity. Symmetrical expansion. LUNGS: Equal air entry with no crackles, wheeze, rhonchi or dullness. CVS: Regular rate and rhythm, normal S1 and S2, no gallops, no murmurs, no rubs ABDOMEN: Soft, nontender. No hepatosplenomegaly, normal bowel sounds, no guarding or rigidity. EXTREMITIES: No clubbing, no edema, no cyanosis, 2+ pulses and upper and lower extremities. MUSCULOSKELETAL: Muscle strength and tone normal. SPINE: No scoliosis or deformity SKIN: No rashes CENTRAL NERVOUS SYSTEM: Alert and oriented -3. No focal deficits, tone is normal in all 4 extremities. PSYCHIATRIC: Alert and oriented -3. Appropriate affect. Intact judgment and insight. - Labs CBC & Chem 7: 09/18/20 07:25 09/18/20 07:25 Labs: Abnormal Lab Results - Last 24 Hours (Table) 09/17/20 09/18/20 09/18/20 Range/Units 21:17 06:56 07:25 WBC 18.2 H (3.8-10.6) k/uL RBC 3.17 L (4.30-5.90) m/uL Hgb 9.4 L (13.0-17.5) gm/dL Hct 29.5 L (39.0-53.0) % RDW 20.1 H (11.5-15.5) % Neutrophils # 17.0 H (1.3-7.7) k/uL Lymphocytes # 0.5 L (1.0-4.8) k/uL Carbon Dioxide (21.6-31.8) mmol/L Anion Gap (4.00-12.00) mmol/L Glucose (70-110) mg/dL POC Glucose (mg/dL) 181 H 144 H (75-99) mg/dL Calcium (8.7-10.3) mg/dL 09/18/20 09/18/20 09/18/20 Range/Units 07:25 11:15 16:51 WBC (3.8-10.6) k/uL RBC (4.30-5.90) m/uL Hgb (13.0-17.5) gm/dL Hct (39.0-53.0) % RDW (11.5-15.5) % Neutrophils # (1.3-7.7) k/uL Lymphocytes # (1.0-4.8) k/uL Carbon Dioxide 17.6 L (21.6-31.8) mmol/L Anion Gap 12.40 H (4.00-12.00) mmol/L Glucose 152 H (70-110) mg/dL POC Glucose (mg/dL) 169 H 168 H (75-99) mg/dL Calcium 8.2 L (8.7-10.3) mg/dL Assessment and Plan Plan: Assessment: #1. Nausea, vomiting, diarrhea, weakness and dehydration, all likely secondary to ongoing chemotherapy with the patient's recent diagnosis of non-small cell lung cancer #2. Shortness of breath, possibly related to the possibility of pneumonia #3. Diagnosis of non-small cell lung cancer diagnosed by fine-needle aspiration of the left lung mass, status post 7 weeks of radiation and 4 rounds of chemotherapy #4. Possibility of metastatic lesion in the pancreas #5. History of diabetes mellitus type 2 #6. Hypertension #7. History of hyperlipidemia #8. Vitamin D deficiency #9. Anorexia/cachexia syndrome of malignancy #10. Previous history of heavy tobacco use Plan: Continue current medical treatment, continue antibiotics, continue gentle IV hydration, patient is feeling better, leukocytosis is improving, no fever, we'll continue to follow, follow-up blood work in the morning, still awaiting results the [facility] 19 testing. Labs reviewed, Renal function has improved. We'll continue to follow I performed a history & physical examination of the patient and discussed their management with my nurse practitioner, Delaney Alvarado. I reviewed the nurse practitioner's note and agree with the documented findings and plan of care. Lung sounds are positive for diminished breath sounds. The findings and the impression was discussed with the patient. I attest to the documentation by the nurse practitioner. Time with Patient: Less than 30
[2020-09-18 20:38] LABS: Glucose,Whole Blood 147 mg/dL (75-99)
[2020-09-18] MEDS ORDERED: MIRTAZAPINE 15 MG TAB PO SCH (21:00)
[2020-09-18] MEDS: ATORVASTATIN 10 MG TAB PO SCH (21:27)
[2020-09-18] MEDS: ASPIRIN 81 MG PO SCH (21:27)
--- NOTE | 2020-09-18 23:35 | P.PN ---
Subjective Progress Note Date: 09/18/20 Principal diagnosis: Diarrhea, Dehydration Spoke to patient and to today, Patient is feeling better Objective - Vital Signs Vital signs: Vital Signs Temp 98 F 09/18/20 19:10 Pulse 96 09/18/20 19:10 Resp 20 09/18/20 19:10 BP 137/70 09/18/20 19:10 Pulse Ox 97 09/18/20 19:10 Intake & Output 09/18/20 09/18/20 09/19/20 06:59 18:59 06:59 Intake Total 100 200 Balance 100 200 Intake: Oral 100 200 Other: Voiding Method Toilet # Voids 3 3 - Labs CBC & Chem 7: 09/18/20 07:25 09/18/20 07:25 Labs: Abnormal Lab Results - Last 24 Hours (Table) 09/18/20 09/18/20 09/18/20 Range/Units 06:56 07:25 07:25 WBC 18.2 H (3.8-10.6) k/uL RBC 3.17 L (4.30-5.90) m/uL Hgb 9.4 L (13.0-17.5) gm/dL Hct 29.5 L (39.0-53.0) % RDW 20.1 H (11.5-15.5) % Neutrophils # 17.0 H (1.3-7.7) k/uL Lymphocytes # 0.5 L (1.0-4.8) k/uL Carbon Dioxide 17.6 L (21.6-31.8) mmol/L Anion Gap 12.40 H (4.00-12.00) mmol/L Glucose 152 H (70-110) mg/dL POC Glucose (mg/dL) 144 H (75-99) mg/dL Calcium 8.2 L (8.7-10.3) mg/dL 09/18/20 09/18/20 09/18/20 Range/Units 11:15 16:51 20:15 WBC (3.8-10.6) k/uL RBC (4.30-5.90) m/uL Hgb (13.0-17.5) gm/dL Hct (39.0-53.0) % RDW (11.5-15.5) % Neutrophils # (1.3-7.7) k/uL Lymphocytes # (1.0-4.8) k/uL Carbon Dioxide (21.6-31.8) mmol/L Anion Gap (4.00-12.00) mmol/L Glucose (70-110) mg/dL POC Glucose (mg/dL) 169 H 168 H 147 H (75-99) mg/dL Calcium (8.7-10.3) mg/dL Assessment and Plan (1) Dehydration Current Visit: Yes Status: Acute Code(s): E86.0 - DEHYDRATION SNOMED Code(s): 96643306 (2) Leukocytosis Current Visit: Yes Status: Acute Code(s): D72.829 - ELEVATED WHITE BLOOD CELL COUNT, UNSPECIFIED SNOMED Code(s): 167093689 (3) Pneumonia Current Visit: Yes Status: Acute Code(s): J18.9 - PNEUMONIA, UNSPECIFIED ORGANISM SNOMED Code(s): 746900692 Plan: COntinue supportive care of fluid hydration and atiemetics Await cross cultures [facility] where he presented prior to transfer to [facility] CT C/A/P performed and essentially appeared improved with exception of increased density end of pancreas. He is diabetic. MRI to further evaluate did mention new 1.8cm mass on pancreas, this will be best evaluated with EUS. Will discuss further with his primary oncologist after stable and discharged. Left shoulder pain I feel likely related to post chemo/cancer/radiation exacerbated by now pneumonia setting - Treatment of underlying cause Leukocytosis: - Cross cultures pending Diarrhea: Improving - Continue Questran - C diff neg - Fecal Leukocytes positive likely inflammatory component Treatment of thrush and GERD Patient does not like Marinol, feels it is not working for appetite, add remeron to increased appetite, also has been shown to have antiemetic benefits and re sult in weight gain. Discussed with , will trial 4 weeks. Greater than 17 minutes review of medical record, discussion with patient .
[2020-09-19] MEDS: SODIUM CHLORIDE 0.9% 1,000 ML IV SCH ×2 (01:47→07:48)
[2020-09-19 06:50] LABS: Glucose,Whole Blood 141 mg/dL (75-99)
[2020-09-19 07:26] VITALS: BP 158/73; PULSE 92; RESP 16; TEMP 97.6
[2020-09-19] MEDS: NYSTATIN 100,000 UNIT/ML SUSP 500,000 UNIT/5 ML CUP PO SCH (07:43)
[2020-09-19] MEDS: ENOXAPARIN 40 MG/0.4 ML SYRINGE SQ SCH (07:44)
[2020-09-19] MEDS: CHOLESTYRAMINE (WITH SUGAR) 4 GM PACKET PO SCH (07:44)
[2020-09-19] MEDS: PIPERACILLIN-TAZOBACTAM 3.375 GM in SODIUM CHLORIDE 0.9% 100 ML IVPB SCH (07:44)
[2020-09-19] MEDS: PANTOPRAZOLE 40 MG TABLET PO SCH (07:44)
[2020-09-19] MEDS: FLUCONAZOLE 100 MG TAB PO SCH (07:44)
[2020-09-19 11:33] LABS: Glucose,Whole Blood 152 mg/dL (75-99)
--- NOTE | 2020-09-19 11:34 | P.DS ---
Providers Date of admission: 09/16/20 21:56 Attending physician: Gamal Sinha Consults: 09/16/20 21:58 Consult Physician Routine Consulting Provider: Blair Izquierdo Consult Reason/Comments: pneumoniia Do you want consulting provider notified?: Yes 09/17/20 11:07 Consult Physician Routine Consulting Provider: Talat Hall Consult Reason/Comments: Lung cancer Do you want consulting provider notified?: Yes Primary care physician: [facility] Course: 80-year-old male came in as he felt dehydrated unable to eat anything severe loss of appetite. Patient was recently diagnosed with lung cancer and recently received chemotherapy. Patient is found to have highly elevated lactic acid 08 which now came down to 2.6. Patient also had acute renal failure with elevated creatinine 1.54. Patient was initially admitted for dehydration although patient is found to have leukocytosis. Patient doesn't have any fever. Patient was tested for the coronavirus and influenza which are negative. Chest x-ray showed a hilar mass no obvious infiltrate consistent with the pneumonia patient denied any symptoms of pneumonia patient doesn't have a UA which was ordered patient denied any UTI symptoms either. Infection is evident patient was started on antibodies which will be continued for now. Unsure whether patient received colony-stimulating factor after chemotherapy which may be the reason why he he has a leukocytosis. Patient was complaining of significant a fatigue yesterday. This improved now. Patient is tachycardic as well. 09/18/2020 Patient is doing better still quite a bit weak. Physical therapy and outpatient and we will evaluate the patient although there is no clear source of infection patient will be continued on present antibiotics, creatinine improved to 1.1 w ill continue with IV fluids. Patient's white blood cell count did improve as well. 09/19/2020 Patient has significant clinical improvement in his sepsis. There is a possibility of pneumonia. Patient was discharged on 5 more days of Augmentin. Patient was evaluated by physical therapy and outpatient therapy. Patient's serum creatinine improved renal failure improved dehydration improved. White blood cell count improved. PHYSICAL EXAMINATION: GENERAL: The patient is alert and oriented x3, not in any acute distress. Well developed, well nourished. HEENT: Pupils are round and equally reacting to light. EOMI. No scleral icterus. No conjunctival pallor. Normocephalic, atraumatic. No pharyngeal erythema. No thyromegaly. CARDIOVASCULAR: S1 and S2 present. No murmurs, rubs, or gallops. PULMONARY: Chest is clear to auscultation, no wheezing or crackles. ABDOMEN: Soft, nontender, nondistended, normoactive bowel sounds. No palpable organomegaly. MUSCULOSKELETAL: No joint swelling or deformity. EXTREMITIES: No cyanosis, clubbing, or pedal edema. NEUROLOGICAL: Gross neurological examination did not reveal any focal deficits. SKIN: No rashes. Assessment and Plan Plan: -Generalized fatigue: Secondary to dehydration, pulmonary malignancy. Patient is being continued on IV fluids -Leukocytosis: Sepsis most probably secondary to pneumonia patient is discharged on 5 more days of Augmentin patient may have postobstructive pneumonia. -Acute renal failure secondary to dehydration which is again secondary to nausea vomiting improved with significant improvement in serum creatinine. -Lactic acidosis is either secondary to sepsis and dehydration improved now. -Hypomagnesemia secondary to poor by mouth intake magnesium was replaced -Hyperkalemia secondary to acute renal failure, improved -Lung cancer: Patient recently received chemotherapy -Mucositis and oral thrush secondary to chemotherapy -Poor appetite secondary to cancer and chemo patient is receiving Marinol. Patient Condition at Discharge: Fair Plan - Discharge Summary Discharge Rx Participant: No New Discharge Prescriptions: New Amoxicillin/Potassium Clav [Augmentin 500-125 Tablet] 1 tab PO Q12HR 5 Days #10 tab Fluconazole [Diflucan] 100 mg PO DAILY #30 tab Nystatin 100,000 Unit/ml Susp [Mycostatin Oral Susp] 500,000 unit PO QID #100 ml Continue Cholecalciferol [Vitamin D3 (25 Mcg = 1000 Iu)] 5,000 unit PO DAILY Aspirin EC [Ecotrin Low Dose] 81 mg PO HS metFORMIN HCL ER [Glucophage Xr] 1,000 mg PO BID Simvastatin [Zocor] 20 mg PO HS Lisinopril [Zestril] 10 mg PO DAILY dronabinoL [Marinol] 5 mg PO HS Hydrocodone/Acetaminophen [[place] 7.5-325] 1 tab PO Q6H PRN PRN Reason: Pain Ondansetron HCl [Zofran] 4 mg PO Q6HR PRN PRN Reason: Nausea traMADol HCL [Ultram] 50 mg PO Q6HR PRN PRN Reason: Pain Famotidine [Pepcid] 20 mg PO BID Discharge Medication List Aspirin EC [Ecotrin Low Dose] 81 mg PO HS 06/18/20 [History] Cholecalciferol [Vitamin D3 (25 Mcg = 1000 Iu)] 5,000 unit PO DAILY 06/18/20 [History] Lisinopril [Zestril] 10 mg PO DAILY 06/18/20 [History] Simvastatin [Zocor] 20 mg PO HS 06/18/20 [History] metFORMIN HCL ER [Glucophage Xr] 1,000 mg PO BID 06/18/20 [History] Hydrocodone/Acetaminophen [[place] 7.5-325] 1 tab PO Q6H PRN 07/24/20 [History] Ondansetron HCl [Zofran] 4 mg PO Q6HR PRN 07/24/20 [History] dronabinoL [Marinol] 5 mg PO HS 07/24/20 [History] traMADol HCL [Ultram] 50 mg PO Q6HR PRN 08/28/20 [History] Famotidine [Pepcid] 20 mg PO BID 09/16/20 [History] Amoxicillin/Potassium Clav [Augmentin 500-125 Tablet] 1 tab PO Q12HR 5 Days #10 tab 09/19/20 [Rx] Fluconazole [Diflucan] 100 mg PO DAILY #30 tab 09/19/20 [Rx] Nystatin 100,000 Unit/ml Susp [Mycostatin Oral Susp] 500,000 unit PO QID #100 ml 09/19/20 [Rx] Follow up Appointment(s)/Referral(s): Jan Nunez MD [Primary Care Provider] - 3 Days
--- NOTE | 2020-09-19 15:03 | P.PN ---
Subjective Progress Note Date: 09/19/20 Principal diagnosis: Weakness, dehydration 80-year-old white male patient of Dr. Nunez, with the recent diagnosis of non-small cell lung cancer patient was started on chemotherapy and radiation therapy. Patient follows with Dr. Garcia and Dr. Saunders from the [facility]. He came in with signs of weakness and dehydration, he hadn't been eating much. Admission chest x-ray showed a left hilar mass, with possible postobstructive pneumonia. Patient is mildly confused, he had lactic acidosis on presentation, with the possibility of pneumonia and sepsis. He has been afebrile since admission. He is on room air, his pulse ox is 98%, hemodynamically has been stable, has been started on antibiotics, in the form of Zosyn, he is not bringing up much sputum, oral Diflucan was added today. He is receiving IV hydration with 0.9 normal saline at a rate of 100 ML per hour, he states he is feeling better today, cytosis is improving on today's labs, white blood cell count is down to 18.2, from 27.3 on admission, hemoglobin is 9.4, sodium is 139, potassium is 3.9, CO2 is 17, renal profile has improved with hydration, BUN is down to 16 and creatinine is 1.1. No nausea vomiting diarrhea, he is producing urine. Denies any abdominal pain. On 09/19/2020 patient seen in follow-up on general medical surgical floor, he is improving, breathing comfortably, in remission pulse ox is 94-90%, hemodynamically stable, he has had no fever or chills. No cough, no chest pain, shortnessofbreath,vitalsignshavebeenstable, no hemoptysis, no significant cough or phlegm production. His been treated with IV Zosyn for empiric coverage. His been stable overnight, his had no acute events. Patient has received IV hydration, diarrhea has improved. His leukocytosis was improving, he tested negative for coronavirus , and influenza. Objective - Vital Signs Vital signs: Vital Signs Temp 97.6 F 09/19/20 07:00 Pulse 92 09/19/20 07:00 Resp 16 09/19/20 07:00 BP 158/73 09/19/20 07:00 Pulse Ox 94 L 09/19/20 07:00 Intake & Output 09/18/20 09/19/20 09/19/20 18:59 06:59 18:59 Intake Total 200 100 200 Balance 200 100 200 Intake: Oral 200 100 200 Other: Voiding Method Toilet # Voids 3 2 3 - Exam GENERAL EXAM: Alert, very pleasant, 72-year-old white male, room air with a pulse ox of 90%, comfortable in no apparent distress. HEAD: Normocephalic/atraumatic. EYES: Normal reaction of pupils, equal size. Conjunctiva pink, sclera white. NOSE: Clear with pink turbinates. THROAT: No erythema or exudates. NECK: No masses, no JVD, no thyroid enlargement, no adenopathy. CHEST: No chest wall deformity. Symmetrical expansion. LUNGS: Equal air entry with no crackles, wheeze, rhonchi or dullness. CVS: Regular rate and rhythm, normal S1 and S2, no gallops, no murmurs, no rubs ABDOMEN: Soft, nontender. No hepatosplenomegaly, normal bowel sounds, no guarding or rigidity. EXTREMITIES: No clubbing, no edema, no cyanosis, 2+ pulses and upper and lower extremities. MUSCULOSKELETAL: Muscle strength and tone normal. SPINE: No scoliosis or deformity SKIN: No rashes CENTRAL NERVOUS SYSTEM: Alert and oriented -3. No focal deficits, tone is normal in all 4 extremities. PSYCHIATRIC: Alert and oriented -3. Appropriate affect. Intact judgment and insight. - Labs CBC & Chem 7: 09/18/20 07:25 09/18/20 07:25 Labs: Abnormal Lab Results - Last 24 Hours (Table) 09/18/20 09/18/20 09/19/20 Range/Units 16:51 20:15 06:48 POC Glucose (mg/dL) 168 H 147 H 141 H (75-99) mg/dL 09/19/20 Range/Units 11:32 POC Glucose (mg/dL) 152 H (75-99) mg/dL Assessment and Plan Plan: Assessment: #1. Nausea, vomiting, diarrhea, weakness and dehydration, all likely secondary to ongoing chemotherapy with the patient's recent diagnosis of non-small cell lung cancer #2. Shortness of breath, possibly related to the possibility of pneumonia #3. Diagnosis of non-small cell lung cancer diagnosed by fine-needle aspiration of the left lung mass, status post 7 weeks of radiation and 4 rounds of chemotherapy #4. Possibility of metastatic lesion in the pancreas #5. History of diabetes mellitus type 2 #6. Hypertension #7. History of hyperlipidemia #8. Vitamin D deficiency #9. Anorexia/cachexia syndrome of malignancy #10. Previous history of heavy tobacco use Plan: Patient has remained stable overnight, he is feeling much better, his diarrhea has improved, renal function has improved, leukocytosis improving, no fever or chills, no worsening dyspnea, patient is being discharged home, stable for discharge home from pulmonary perspective on oral antibiotics. I performed a history & physical examination of the patient and discussed their management with my nurse practitioner, Delaney Alvarado. I reviewed the nurse practitioner's note and agree with the documented findings and plan of care. Lung sounds are positive for diminished breath sounds. The findings and the impression was discussed with the patient. I attest to the documentation by the nurse practitioner. Time with Patient: Less than 30
--- NOTE | 2020-09-19 22:02 | P.PN ---
Subjective Progress Note Date: 09/19/20 Principal diagnosis: Diarrhea, Dehydration improved this am, planning for discharge Objective - Vital Signs Vital signs: Vital Signs Temp 97.6 F 09/19/20 07:00 Pulse 92 09/19/20 07:00 Resp 16 09/19/20 07:00 BP 158/73 09/19/20 07:00 Pulse Ox 94 L 09/19/20 07:00 Intake & Output 09/19/20 09/19/20 09/20/20 06:59 18:59 06:59 Intake Total 100 200 Balance 100 200 Intake: Oral 100 200 Other: Voiding Method Toilet # Voids 2 3 - Exam - Constitutional General appearance: no acute distress - EENT Eyes: EOMI, PERRLA ENT: hearing grossly normal, normal oropharynx - Neck Neck: no lymphadenopathy - Respiratory Respiratory: bilateral: CTA - Cardiovascular Rhythm: regular Heart sounds: normal: S1, S2 - Gastrointestinal General gastrointestinal: normal bowel sounds, soft - Integumentary Integumentary: normal - Neurologic Neurologic: CNII-XII intact - Musculoskeletal Musculoskeletal: generalized weakness, strength equal bilaterally - Psychiatric Psychiatric: A&O x's 3, appropriate affect - Labs CBC & Chem 7: 09/18/20 07:25 09/18/20 07:25 Labs: Abnormal Lab Results - Last 24 Hours (Table) 09/19/20 09/19/20 Range/Units 06:48 11:32 POC Glucose (mg/dL) 141 H 152 H (75-99) mg/dL Assessment and Plan (1) Dehydration Status: Acute Code(s): E86.0 - DEHYDRATION SNOMED Code(s): 70424310 (2) Leukocytosis Status: Acute Code(s): D72.829 - ELEVATED WHITE BLOOD CELL COUNT, UNSPECIFIED SNOMED Code(s): 735585279 (3) Pneumonia Status: Acute Code(s): J18.9 - PNEUMONIA, UNSPECIFIED ORGANISM SNOMED Code(s): 034394991 Plan: [facility] where he presented prior to transfer to [facility] CT C/A/P performed and essentially appeared improved with exception of increased density end of pancreas. He is diabetic. MRI to further evaluate did mention new 1.8cm mass on pancreas, this will be best evaluated with EUS. Will discuss further with his primary oncologist after stable and discharged. Left shoulder pain I feel likely related to post chemo/cancer/radiation exacerbated by now pneumonia setting - Treatment of underlying cause Diarrhea: Improving - Continue Questran - C diff neg - Fecal Leukocytes positive likely inflammatory component Treatment of thrush and GERD Patient does not like Marinol, feels it is not working for appetite, add remeron to increased appetite, also has been shown to have antiemetic benefits and result in weight gain. Discussed with , will trial 4 weeks. DISPO: - Discharge today with home PT - Follow-up with EUS as outpatient after assessment in office with primary oncologist Dr. Garcia - Continue on Remeron for appetite Physician Attest: I have completed the full history and physical and agree with above dictation, dictated as a scribe
== END 2020-09-19 13:47 | disposition home or self-care (01) | DRG 871 ==
LOC: EC 18:49 → 4SSUR 21:56
PROVIDERS: ADMIT Hospitalist; ATTEND Hospitalist
DX: A41.9 Sepsis, unspecified organism (principal); J18.9 Pneumonia, unspecified organism; B37.0 Candidal stomatitis; E87.2 Acidosis; N17.9 Acute kidney failure, unspecified; C34.92 Malignant neoplasm of unspecified part of left bronchus or lung; R64 Cachexia; Z68.1 Body mass index [BMI] 19.9 or less, adult; K12.30 Oral mucositis (ulcerative), unspecified; Z20.828 Contact with and (suspected) exposure to other viral communicable diseases; E86.0 Dehydration; E83.42 Hypomagnesemia; E78.5 Hyperlipidemia, unspecified; E55.9 Vitamin D deficiency, unspecified; E11.9 Type 2 diabetes mellitus without complications; E87.5 Hyperkalemia; R62.7 Adult failure to thrive; M25.512 Pain in left shoulder; K21.9 Gastro-esophageal reflux disease without esophagitis; B37.9 Candidiasis, unspecified; R19.7 Diarrhea, unspecified; I10 Essential (primary) hypertension; T45.1X5A Adverse effect of antineoplastic and immunosuppressive drugs, initial encounter; Z79.82 Long term (current) use of aspirin; Z79.84 Long term (current) use of oral hypoglycemic drugs; Z79.899 Other long term (current) drug therapy; Z87.891 Personal history of nicotine dependence; Z98.890 Other specified postprocedural states; Z98.49 Cataract extraction status, unspecified eye; Z80.0 Family history of malignant neoplasm of digestive organs; Z92.3 Personal history of irradiation
CPT/HCPCS: 71046; 74183; 80048; 80053; 82550; 83605; 83735; 83880; 84100; 84484; 85025; 85610; 85730; 87502; 87635; 93005; 96361; 96365; 96366; 96367; 96368; 96375; 99285

== ENCOUNTER 2020-10-02 10:39 | Inpatient (IN) | payer MEDICARE, OTHER ==
--- NOTE | 2020-10-02 11:41 | ED ---
General Adult HPI - General Chief complaint: Shortness of Breath Stated complaint: Weakness,Loss of Appetite Time Seen by Provider: 10/02/20 10:55 Source: patient, family Mode of arrival: wheelchair Limitations: physical limitation - History of Present Illness Initial comments: Dictation was produced using Kand[employer] dictation software. please excuse any grammatical, word or spelling errors. This patient was cared for during a federal and state declared state of emergency secondary to Covid 19 Chief Complaint: 80-year-old male presents with worsening appetite, generalized weakness and shortness of breath for the last 2 months History of Present Illness: Patient is a 72-year-old male. Presents today with several weeks of worsening medical condition. Patient in August was diagnosed with non-small cell lung cancer of bronchoscopy from August. at bedside also reports that since that patient has been having declining physical condition. He had last had chemotherapy in August. Chemotherapy since then. Because of his clinical condition that brought him to the emergency department today. Patient states he does have chest pain is worse when he coughs. He does have a cough productive of sputum. Denies any constitutional symptoms. He feels dyspneic is worse with exertion. No nausea vomiting or abdominal pain. He feels weak to his lower extremities especially with trying to do his activities of daily living. He has poor appetite. No sore throat or right nose. No obvious contact with anybody with coronavirus. The ROS documented in this emergency department record has been reviewed and confirmed by me. Those systems with pertinent positive or negative responses have been documented in the HPI. All other systems are other negative and/or noncontributory. PHYSICAL EXAM: General Impression: Alert and oriented x3, not in acute distress HEENT: Normocephalic atraumatic, extra-ocular movements intact, pupils equal and reactive to light bilaterally, mucous membranes moist. Cardiovascular: Heart regular rate and rhythm Chest: Able to complete full sentences, no retractions, no tachypnea Abdomen: abdomen soft, non-tender, non-distended, no organomegaly Musculoskeletal: Pulses present and equal in all extremities, no peripheral edema Motor: no focal deficits noted Neurological: CN II-XII grossly intact, no focal motor or sensory deficits noted Skin: Intact with no visualized rashes Psych: Normal affect and mood ED course: 80-year-old male with past medical history of non-small cell lung ca ncer presents with dyspnea, fatigue, poor appetite and generalized weakness. Signs upon arrival shows temperature of 97.4, heart rate of 113, blood pressure 94/53. 91% on room air. Laboratory evaluation obtained. Leukocytosis of 71.4, hemoglobin 9.8. No thrombocytosis. Neutrophils 69.2. Coag panel is unremarkable. Metabolic panel shows sodium of 128. Slight acidosis. Lactic acidosis 4.3, magnesium 1.2. Chest x-ray shows diffuse bilateral reticular nodular infiltrates. Patient's symptoms concerning for atypical infection. Patient started on ceftriaxone and azithromycin. Patient be admitted to cardiac telemetry. Patient given intravenous fluid bolus with improvement of blood pressure. Patient will be admitted to Dr. Flynn's service with consultation to infectious disease and oncology. EKG interpretation: Ventricular rate 109, sinus tachycardia,. Interval 136, QRS 86, QTC 439. No DC prolongation, no QTC prolongation, no ST or T-wave changes noted. EKG compared to 09/16/2020 showing no changes. Overall, this EKG is unremarkable - Related Data Home Medications Medication Instructions Recorded Confirmed Aspirin EC [Ecotrin Low Dose] 81 mg PO HS 06/18/20 10/02/20 Cholecalciferol [Vitamin D3 (25 5,000 unit PO HS 06/18/20 10/02/20 Mcg = 1000 Iu)] Lisinopril [Zestril] 10 mg PO DAILY 06/18/20 10/02/20 Simvastatin [Zocor] 20 mg PO HS 06/18/20 10/02/20 metFORMIN HCL ER [Glucophage Xr] 1,000 mg PO BID 06/18/20 10/02/20 Ondansetron HCl [Zofran] 4 mg PO Q6HR PRN 07/24/20 10/02/20 Mirtazapine [Remeron] 15 mg PO HS 10/02/20 10/02/20 Omeprazole 20 mg PO DAILY 10/02/20 10/02/20 Previous Rx's Medication Instructions Recorded Fluconazole [Diflucan] 100 mg PO DAILY #30 tab 09/19/20 Allergies Allergy/AdvReac Type Severity Reaction Status Date / Time No Known Allergies Allergy Verified 10/02/20 11:27 Review of Systems ROS Statement: Those systems with pertinent positive or pertinent negative responses have been documented in the HPI. ROS Other: All systems not noted in ROS Statement are negative. Past Medical History Past Medical History: Cancer, Diabetes Mellitus Additional Past Medical History / Comment(s): LEFT LOWER LOBE NSCLC. History of Any Multi-Drug Resistant Organisms: None Reported Past Surgical History: No Surgical Hx Reported Additional Past Surgical History / Comment(s): Cataract SURGERY. LEFT LUNG BIOPSY Past Anesthesia/Blood Transfusion Reactions: No Reported Reaction Past Psychological History: No Psychological Hx Reported Smoking Status: Former smoker Past Alcohol Use History: None Reported Past Drug Use History: None Reported - Past Family History Mother Family Medical History: Cancer Additional Family Medical History / Comment(s): Pancreatic cancer General Exam Limitations: physical limitation Course Vital Signs 10/02/20 10/02/20 10/02/20 10:47 12:30 13:00 Temperature 97.4 F L Pulse Rate 113 H 103 H 99 Respiratory 18 18 18 Rate Blood Pressure 94/53 107/60 123/83 O2 Sat by Pulse 91 L 95 95 Oximetry Medical Decision Making - Lab Data Result diagrams: 10/02/20 11:39 10/02/20 11:39 Lab Results 10/02/20 10/02/20 10/02/20 Range/Units 11:39 11:39 11:39 WBC 71.4 H* (3.8-10.6) k/uL RBC 3.37 L (4.30-5.90) m/uL Hgb 9.8 L (13.0-17.5) gm/dL Hct 31.2 L (39.0-53.0) % MCV 92.5 (80.0-100.0) fL MCH 29.1 (25.0-35.0) pg MCHC 31.4 (31.0-37.0) g/dL RDW 19.2 H (11.5-15.5) % Plt Count 293 (150-450) k/uL MPV 8.7 Neutrophils % 97 % Lymphocytes % 1 % Monocytes % 1 % Eosinophils % 1 % Basophils % 0 % Neutrophils # 69.2 H (1.3-7.7) k/uL Lymphocytes # 0.6 L (1.0-4.8) k/uL Monocytes # 0.7 (0-1.0) k/uL Eosinophils # 0.8 H (0-0.7) k/uL Basophils # 0.0 (0-0.2) k/uL Manual Slide Review Performed Toxic Vacuolation Present Hypochromasia Slight Anisocytosis Slight PT 12.0 (9.0-12.0) sec INR 1.2 H (<1.2) APTT 20.8 L (22.0-30.0) sec Sodium 128 L (137-145) mmol/L Potassium 5.2 H (3.5-5.1) mmol/L Chloride 95 L (98-107) mmol/L Carbon Dioxide 21 L (22-30) mmol/L Anion Gap 12 mmol/L BUN 27 H (9-20) mg/dL Creatinine 0.93 (0.66-1.25) mg/dL Est GFR (CKD-EPI)AfAm >90 (>60 ml/min/1.73 sqM) Est GFR (CKD-EPI)NonAf 79 (>60 ml/min/1.73 sqM) Glucose 238 H (74-99) mg/dL Plasma Lactic Acid Ba (0.7-2.0) mmol/L Calcium 11.8 H (8.4-10.2) mg/dL Magnesium 1.2 L (1.6-2.3) mg/dL Total Bilirubin 0.7 (0.2-1.3) mg/dL AST 29 (17-59) U/L ALT 21 (4-49) U/L Alkaline Phosphatase 106 (38-126) U/L Total Protein 5.9 L (6.3-8.2) g/dL Albumin 2.7 L (3.5-5.0) g/dL 10/02/20 Range/Units 11:39 WBC (3.8-10.6) k/uL RBC (4.30-5.90) m/uL Hgb (13.0-17.5) gm/dL Hct (39.0-53.0) % MCV (80.0-100.0) fL MCH (25.0-35.0) pg MCHC (31.0-37.0) g/dL RDW (11.5-15.5) % Plt Count (150-450) k/uL MPV Neutrophils % % Lymphocytes % % Monocytes % % Eosinophils % % Basophils % % Neutrophils # (1.3-7.7) k/uL Lymphocytes # (1.0-4.8) k/uL Monocytes # (0-1.0) k/uL Eosinophils # (0-0.7) k/uL Basophils # (0-0.2) k/uL Manual Slide Review Toxic Vacuolation Hypochromasia Anisocytosis PT (9.0-12.0) sec INR (<1.2) APTT (22.0-30.0) sec Sodium (137-145) mmol/L Potassium (3.5-5.1) mmol/L Chloride (98-107) mmol/L Carbon Dioxide (22-30) mmol/L Anion Gap mmol/L BUN (9-20) mg/dL Creatinine (0.66-1.25) mg/dL Est GFR (CKD-EPI)AfAm (>60 ml/min/1.73 sqM) Est GFR (CKD-EPI)NonAf (>60 ml/min/1.73 sqM) Glucose (74-99) mg/dL Plasma Lactic Acid Ba 4.3 H* (0.7-2.0) mmol/L Calcium (8.4-10.2) mg/dL Magnesium (1.6-2.3) mg/dL Total Bilirubin (0.2-1.3) mg/dL AST (17-59) U/L ALT (4-49) U/L Alkaline Phosphatase (38-126) U/L Total Protein (6.3-8.2) g/dL Albumin (3.5-5.0) g/dL Disposition Clinical Impression: Pneumonia Disposition: ADMITTED IP TO THIS [facility] Condition: Fair Referrals: Jan Nunez MD [Primary Care Provider] - 1-2 days Decision Time: 13:25
--- NOTE | 2020-10-02 11:46 | XR ---
EXAMINATION TYPE: XR chest 1V portable DATE OF EXAM: 10/02/2020 COMPARISON: Outside CT June 16, 2020. PET CT June 29, 2020 HISTORY: History of lung cancer with dyspnea and hypoxia. TECHNIQUE: Single AP portable frontal upright view of the chest is obtained. FINDINGS: There is background chronic emphysematous change with worsening reticulonodular opacities bilaterally. The cardiac silhouette size remains within normal limits. The osseous structures are intact. IMPRESSION: Worsening Diffuse bilateral reticulonodular infiltrates and/or edema. Cannot exclude aty pical infection. Possible adverse reactive change related to treatment for lung cancer. Correlate cli nically.
[2020-10-02] MEDS ORDERED: cefTRIAXone IN SWFI 1,000 MG/10 ML SYRINGE IVP STA (12:21)
[2020-10-02] MEDS ORDERED: AZITHROMYCIN 500 MG in SODIUM CHLORIDE 0.9% 250 ML IVPB STA (12:21)
[2020-10-02 12:23] LABS: Anisocytosis Slight; Basophils % (A) 0 %; Eosinophils # (A) 0.8 k/uL (0-0.7); Eosinophils % (A) 1 %; HCT 31.2 % (39.0-53.0); HGB 9.8 gm/dL (13.0-17.5); Hypochromasia Slight; Lymphocytes # (A) 0.6 k/uL (1.0-4.8); Lymphocytes % (A) 1 %; MCH 29.1 pg (25.0-35.0); MCHC 31.4 g/dL (31.0-37.0); MCV 92.5 fL (80.0-100.0); Mean Platelet Volume 8.7; Monocytes # (A) 0.7 k/uL (0-1.0); Monocytes % (A) 1 %; Neutrophils # (A) 69.2 k/uL (1.3-7.7); Neutrophils % (A) 97 %; Platelet Count 293 k/uL (150-450); RBC 3.37 m/uL (4.30-5.90); RDW 19.2 % (11.5-15.5)
[2020-10-02 12:29] LABS: ALT 21 U/L (4-49); AST 29 U/L (17-59); African American GFR (CKD) >90 (>60 ml/min/1.73 sqM); Albumin 2.7 g/dL (3.5-5.0); Alkaline Phosphatase 106 U/L (38-126); Anion Gap 12 mmol/L; Blood Urea Nitrogen 27 mg/dL (9-20); Calcium 11.8 mg/dL (8.4-10.2); Carbon Dioxide 21 mmol/L (22-30); Chloride 95 mmol/L (98-107); Glucose 238 mg/dL (74-99); Magnesium 1.2 mg/dL (1.6-2.3); Non-African American GFR(CKD) 79 (>60 ml/min/1.73 sqM); Potassium 5.2 mmol/L (3.5-5.1); Sodium 128 mmol/L (137-145); Total Bilirubin 0.7 mg/dL (0.2-1.3); Total Protein 5.9 g/dL (6.3-8.2)
[2020-10-02 12:30] LABS: WBC 71.4 k/uL (3.8-10.6)
[2020-10-02 12:40] LABS: Toxic Vacuolation Present
[2020-10-02] MEDS ORDERED: SODIUM CHLORIDE 0.9% 1,000 ML IV STA ×2 (12:56→12:57)
[2020-10-02 12:57] LABS: INR 1.2 (<1.2)
[2020-10-02 12:59] LABS: Partial Thromboplastin Time 20.8 sec (22.0-30.0)
[2020-10-02] MEDS ORDERED: ONDANSETRON 4 MG/2 ML VIAL IVP PRN (13:22)
[2020-10-02] MEDS ORDERED: NALOXONE 0.4 MG/ML 1 ML VIAL IV PRN (13:22)
[2020-10-02] MEDS ORDERED: ACETAMINOPHEN TAB 325 MG TAB PO PRN (13:22)
[2020-10-02] MEDS: MAGNESIUM SULFATE-D5W PMX 1 GM in DEXTROSE/WATER 1 100ML.BAG IVPB SCH ×2 (14:53→16:19)
[2020-10-02] MEDS ORDERED: ONDANSETRON 4 MG TAB PO PRN (15:26)
[2020-10-02] MEDS ORDERED: VANCOMYCIN IV PER PHARMACY 1 EACH MISC MISCELLANE PRN (16:02)
[2020-10-02 17:21] LABS: Glucose,Whole Blood 196 mg/dL (75-99)
--- NOTE | 2020-10-02 17:26 | CT ---
EXAMINATION TYPE: CT chest wo con DATE OF EXAM: 10/02/2020 COMPARISON: 09/16/2020 HISTORY: SOB CT DLP: 248.9 mGycm Automated exposure control for dose reduction was used. Images obtained from the thoracic inlet to the diaphragm without contrast. There is bilateral pleural effusions and larger on the right side. There is extensive reticular nodul ar infiltrate throughout the lungs. Heart size is normal. There are no hilar masses. There is no defi nite mediastinal adenopathy. There is coronary artery calcification. Thoracic aorta shows atheromatou s change. There is no aneurysm. IMPRESSION: Extensive reticular nodular infiltrate throughout the lungs with pleural effusions. This is mostly ne w compared to old exam. This is consistent with inflammatory disease and short time period. Rapidly p rogressing lymphangitic metastatic disease not excluded. There is 4 x 2 cm left side paraspinal infil trate in the mid thoracic spine unchanged. Tumor is possible.
--- NOTE | 2020-10-02 17:51 | P.CNPUL ---
History of Present Illness Consult date: 10/02/20 Requesting physician: Russell Brown Reason for consult: dyspnea, abnormal CXR/CT Chief complaint: Dyspnea, weakness and poor appetite History of present illness: This is a 72-year-old white male patient with history of diagnosis of non-small cell lung cancer who was started on chemotherapy and radiation. Patient follows with Dr. Garcia and Dr. Velazquez from the [facility]. He states he had finished his chemotherapy on 09/04/2020. He had a recent hospitalization from 09/16/2020 through 09/19/2020 when he came in with the signs of severe dehydration, loss of appetite, following his chemotherapy. Patient also had acute kidney injury, leukocytosis. He was checked for COVID 19 and influenza which were negative. He was hydrated, he was treated with antibiotics, for possibility of pneumonia, currently improved, he was discharged home on the course of Augmentin. Patient came back to the emergency department on 10/02/2020 with complaints of worsening shortness of breath, weakness, loss of appetite, and patient has not been able to take in much in the way of oral intake. Denies any fever or chills, he states he is bringing up some heavy phlegm, denies any chest pain, he has a weak but congested cough. He was started on empiric AmBisome the form of cefepime and vancomycin, he was tested for COVID 19 and was found to be negative. His chest x-ray showed a worsening diffuse bilateral reticulonodular infiltrates and/or edema with possibility of atypical infection, and possible adverse reactive changes to the treatment for lung cancer. He is not normally on oxygen, right now he is wearing 6 L of oxygen pulse ox of 95%, he has been afebrile, his blood work revealed leukocytosis, with white blood cell, 71.4, hemoglobin of 9.8, his INR was 1.2, sodium was 128, potassium is 5.2, chloride was 95, CO2 is 21, B1 is 27 creatinine 0.93, and plasma lactic acid of 4.3, improved with IV rehydration, however still remains elevated. ID service was consulted, and we were consulted for pulmonary evaluation. Review of Systems All systems: negative Constitutional: Reports anorexia, Reports malaise, Reports poor appetite, Reports weakness, Denies chills, Denies fever Eyes: denies blurred vision, denies pain Ears, nose, mouth and throat: Denies headache, Denies sore throat Cardiovascular: Denies chest pain, Denies shortness of breath Respiratory: Reports cough with sputum, Reports dyspnea, Denies cough Gastrointestinal: Reports loss of appetite, Denies abdominal pain, Denies diarrhea, Denies nausea, Denies vomiting Musculoskeletal: Denies myalgias Integumentary: Denies pruritus, Denies rash Neurological: Denies numbness, Denies weakness Psychiatric: Denies anxiety, Denies depression Endocrine: Denies fatigue, Denies weight change Past Medical History Past Medical History: Cancer, Diabetes Mellitus, GERD/Reflux, Hyperlipidemia, Hypertension Additional Past Medical History / Comment(s): Pt recently admitted to [facility] on 09/16/20 with generalized fatigue 2ndary to dehydration/pulmonary malignancy/leukocytosis/sepsis most likely 2ndary to pneumonia/acute renal failure 2ndary to dehydration/hypomagnesemia/hyperkalemia/oral thrush/mucositis. 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 History of Any Multi-Drug Resistant Organisms: None Reported Past Surgical History: No Surgical Hx Reported Additional Past Surgical History / Comment(s): Ct guided L lung biopsy, L eye cataract removal/lens implant. Past Anesthesia/Blood Transfusion Reactions: No Reported Reaction Smoking Status: Former smoker - Past Family History Mother Family Medical History: Cancer Additional Family Medical History / Comment(s): Pancreatic cancer Father Additional Family Medical History / Comment(s): Pt states father during WWII when pt was 6 yrs old. Medications and Allergies Home Medications Medication Instructions Recorded Confirmed Type Aspirin EC [Ecotrin Low Dose] 81 mg PO HS 06/18/20 10/02/20 History Cholecalciferol [Vitamin D3 (25 5,000 unit PO HS 06/18/20 10/02/20 History Mcg = 1000 Iu)] Lisinopril [Zestril] 10 mg PO DAILY 06/18/20 10/02/20 History Simvastatin [Zocor] 20 mg PO HS 06/18/20 10/02/20 History metFORMIN HCL ER [Glucophage Xr] 1,000 mg PO BID 06/18/20 10/02/20 History Ondansetron HCl [Zofran] 4 mg PO Q6HR PRN 07/24/20 10/02/20 History Fluconazole [Diflucan] 100 mg PO DAILY #30 tab 09/19/20 10/02/20 Rx Mirtazapine [Remeron] 15 mg PO HS 10/02/20 10/02/20 History Omeprazole 20 mg PO DAILY 10/02/20 10/02/20 History Allergies Allergy/AdvReac Type Severity Reaction Status Date / Time No Known Allergies Allergy Verified 10/02/20 11:27 Physical Exam Vitals: Vital Signs Temp Pulse Pulse Resp BP BP Pulse Ox 10/02/20 16:00 18 10/02/20 15:25 100 10/02/20 14:35 97.2 F L 96 18 142/65 95 10/02/20 13:30 100 18 123/57 95 10/02/20 13:00 99 18 123/83 95 10/02/20 12:30 103 H 18 107/60 95 10/02/20 10:47 97.4 F L 113 H 18 94/53 91 L Intake and Output 10/02/20 10/02/20 10/02/20 06:59 14:59 22:59 Other: Voiding Method Urinal # Voids 1 Weight 55.338 kg 55.338 kg GENERAL EXAM: Alert, 80-year-old white female, appears chronically ill, pale, on 6 L of oxygen a pulse ox of 95%, resting comfortably in bed appears weak, comfortable in no apparent distress. HEAD: Normocephalic/atraumatic. EYES: Normal reaction of pupils, equal size. Conjunctiva pink, sclera white. NOSE: Clear with pink turbinates. THROAT: No erythema or exudates. NECK: No masses, no JVD, no thyroid enlargement, no adenopathy. CHEST: No chest wall deformity. Symmetrical expansion. LUNGS: Equal air entry with no crackles, wheeze, rhonchi or dullness. CVS: Regular rate and rhythm, normal S1 and S2, no gallops, no murmurs, no rubs ABDOMEN: Soft, nontender. No hepatosplenomegaly, normal bowel sounds, no guarding or rigidity. EXTREMITIES: No clubbing, no edema, no cyanosis, 2+ pulses and upper and lower extremities. MUSCULOSKELETAL: Muscle strength and tone normal. SPINE: No scoliosis or deformity SKIN: No rashes CENTRAL NERVOUS SYSTEM: Alert and oriented -3. No focal deficits, tone is normal in all 4 extremities. PSYCHIATRIC: Alert and oriented -3. Appropriate affect. Intact judgment and insight. Results - Laboratory Findings CBC and BMP: 10/02/20 11:39 10/02/20 11:39 PT/INR, D-dimer PT 12.0 sec (9.0-12.0) 10/02/20 11:39 INR 1.2 (<1.2) H 10/02/20 11:39 D-Dimer 3.55 mg/L FEU (<0.60) H 10/02/20 11:29 Abnormal lab findings: Abnormal Labs 10/02/20 10/02/20 10/02/20 11:29 11:29 11:39 WBC 71.4 H* RBC 3.37 L Hgb 9.8 L Hct 31.2 L RDW 19.2 H Neutrophils # 69.2 H Lymphocytes # 0.6 L Eosinophils # 0.8 H INR APTT D-Dimer 3.55 H Sodium Potassium Chloride Carbon Dioxide BUN Glucose POC Glucose (mg/dL) Plasma Lactic Acid Ba Calcium Magnesium Lactate Dehydrogenase 985 H C-Reactive Protein 205.0 H Total Protein Albumin 10/02/20 10/02/20 10/02/20 11:39 11:39 11:39 WBC RBC Hgb Hct RDW Neutrophils # Lymphocytes # Eosinophils # INR 1.2 H APTT 20.8 L D-Dimer Sodium 128 L Potassium 5.2 H Chloride 95 L Carbon Dioxide 21 L BUN 27 H Glucose 238 H POC Glucose (mg/dL) Plasma Lactic Acid Ba 4.3 H* Calcium 11.8 H Magnesium 1.2 L Lactate Dehydrogenase C-Reactive Protein Total Protein 5.9 L Albumin 2.7 L 10/02/20 10/02/20 15:17 17:17 WBC RBC Hgb Hct RDW Neutrophils # Lymphocytes # Eosinophils # INR APTT D-Dimer Sodium Potassium Chloride Carbon Dioxide BUN Glucose POC Glucose (mg/dL) 196 H Plasma Lactic Acid Ba 3.2 H* Calcium Magnesium Lactate Dehydrogenase C-Reactive Protein Total Protein Albumin - Diagnostic Findings Chest x-ray: report reviewed, image reviewed CT scan - chest: report reviewed, image reviewed Assessment and Plan Plan: Assessment: #1. Acute hypoxic respiratory failure with the possibility of underlying pneumonia, healthcare acquired, an immunocompromised host, and there is a possibility of non-small cell lung cancer progression with appearance of lymphangitic carcinomatosis, on the appearance of the chest x-ray that showed worsening diffuse bilateral reticulonodular infiltrates. High resolution CT was obtained showing extensive reticular nodular infiltrates throughout the lungs with pleural effusions consistent with inflammatory disease or rapidly progressing lymphangitic metastatic disease. There is a 4 x 2 cm left-sided paraspinal infiltrate in the mid thoracic spine day of skeletal metastasis #2. Non-small cell lung cancer diagnosed in June 2020, poorly differentiated, diagnosed via CT-guided biopsy on 06/19/2020 status post concurrent chemoradiation with weekly carboplatin and Taxol as a chemotherapy arm, and patient states he completed treatment on 09/04/2020 #3. Recent hospitalization for dehydration, acute kidney injury and weakness and possibility of pneumonia, 09/16/2020 through 09/19/2020 discharged home on oral antibiotics #4. 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 Hyponatremia related to hypovolemia #6. Weakness, dehydration, poor oral intake #7. Significant leukocytosis #8. Lactic acidosis, improving with IV hydration still remains significantly elevated, with possibility of sepsis #9. Diabetes mellitus type 2 #10. Former smoker Plan: We'll continue current antibiotics, currently on cefepime and vancomycin, continue IV hydration, will add steroids, 60 mg every 6 hours, will consult medical oncology, Coronavirus 19 was ruled out, follow up blood work in the morning, ID service is following. I performed a history & physical examination of the patient and discussed their management with my nurse practitioner, Delaney Alvarado. I reviewed the nurse practitioner's note and agree with the documented findings and plan of care. Lung sounds are positive for diminished breath sounds, congestive cough The findings and the impression was discussed with the patient. I attest to the documentation by the nurse practitioner. Time with Patient: Greater than 30
[2020-10-02] MEDS: VANCOMYCIN 1,000 MG in SODIUM CHLORIDE 0.9% 250 ML IVPB SCH (18:08)
[2020-10-02] MEDS: methylPREDNISolone SOD SUCCI 125 MG/2 ML VIAL IV SCH ×2 (18:10→23:28)
[2020-10-02 19:52] LABS: Glucose,Whole Blood 192 mg/dL (75-99)
[2020-10-02] MEDS: ATORVASTATIN 10 MG TAB PO SCH (21:29)
[2020-10-02] MEDS: CHOLECALCIFEROL 1,000 UNIT TAB PO SCH (21:29)
[2020-10-02] MEDS: CEFEPIME 2 GM in SODIUM CHLORIDE 0.9% 100 ML IVPB SCH (21:29)
[2020-10-02] MEDS: ASPIRIN 81 MG PO SCH (21:29)
[2020-10-02] MEDS: metFORMIN 500 MG TAB PO SCH (21:29)
[2020-10-02] MEDS: INSULIN ASPART (NovoLOG) 100 UNIT/ML VIAL SQ SCH (21:30)
[2020-10-02] MEDS: MIRTAZAPINE 15 MG TAB PO SCH (21:31)
--- NOTE | 2020-10-02 22:52 | P.HPIM ---
History of Present Illness H&P Date: 10/02/20 Chief Complaint: short of breath History of presenting complaint: This is a pleasant 80-year-old patient of Dr. Nunez. He follows with . Patient had a computed tomography scan guided biopsy on 06/19/2020 revealing poorly differentiated adenocarcinoma. Patient started on concurrent chemoradiation with weekly carboplatin and Taxol. Other chronic stable medical conditions include diabetes, GERD, hypertension, hyperlipidemia. He was admitted here on September 16 with pneumonia and sepsis. Patient now presents with progressive weakness. Decreased appetite and weight loss. Off of it congested bringing up some thick sputum. No pain. Hypoxic in the ER. Review of systems: GEN.: Loss of appetite, weight loss EYES: None HEENT: None NECK: None RESPIRATORY: As above CARDIOVASCULAR: None GASTROINTESTINAL: None GENITOURINARY: None MUSCULOSKELETAL: Some joint pains, muscle weakness LYMPHATICS: None HEMATOLOGICAL: None PSYCHIATRY: None NEUROLOGICAL: None Past medical history to include: Diabetes, GERD, hypertension, hyperlipidemia, non-small cell lung cancer/adenocarcinoma getting chemoradiation Social history: . Does have a cane and a walker. Independent did recently. Smoked for 44 years stopping in 2003. Alcohol rarely. Physical examination: VITAL SIGNS: 97.4, 113, 18, 94/53, 91% room air GENERAL: BMI 18.5, loss of muscle mass tired sitting up in the bed coughing. EYES: [Pupils equal. Conjunctiva pale. HEENT: External appearance of nose and ears normal, oral cavity grossly normal. NECK: JVD not raised; masses not palpable. HEART: First and second heart sounds are normal; no edema. LUNGS: Respiratory rate increased, decreased breath sounds. ABDOMEN: Soft, nontender, liver spleen not palpable, no masses palpable. PSYCH: Alert and oriented x3; mood and affect tiredl. MUSCULAR skeletal: Evidence of OA, prominent bony prominences, muscle muscle mass and subcutaneous fat NEUROLOGICAL: Cranial nerves grossly intact; no facial asymmetry, power and sensation grossly intact. LYMPHATICS: No lymph nodes palpable in the axilla and neck INVESTIGATIONS, reviewed in the clinical context: White count 7.4 hemoglobin 9.8 platelets 293 potassium 5.2 sodium 128 creatinine 0.93 Lactic acid 4.3, albumin 2.7 Coronavirus P/Cr-not detected EKG tracing personally reviewed by me-sinus rhythm line Chest x-ray film personally reviewed by me-diffuse bilateral reticular-nodular infiltrates Assessment: -Possible pneumonia, suspect underlying gram-negative orgasm in an immunosuppressed patient -Diabetes mellitus type 2 on oral hypoglycemic -Hyperlipidemia -Chronic insomnia for medical reasons -Essential hypertension -Medical debility from underlying malignancy -Adenocarcinoma of the lung has undergone chemoradiation -Acute COPD exacerbation in a X smoker -Moderate protein calorie malnutrition from decreased oral intake Plan: Patient started IV cefepime and vancomycin. Sputum will be standoff for Gram stain and culture. Did put on bronchodilators and Solu-Medrol. Home medications resumed. Given muscle weakness will DC the Lipitor. Consultation is made to oncology and pulmonary. IV fluids. Prognosis guarded Past Medical History Past Medical History: Cancer, Diabetes Mellitus, GERD/Reflux, Hyperlipidemia, Hypertension Additional Past Medical History / Comment(s): Pt recently admitted to [facility] on 09/16/20 with generalized fatigue 2ndary to dehydration/pulmonary malignancy/leukocytosis/sepsis most likely 2ndary to pneumonia/acute renal fa ilure 2ndary to dehydration/hypomagnesemia/hyperkalemia/oral thrush/mucositis. 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 History of Any Multi-Drug Resistant Organisms: None Reported Past Surgical History: No Surgical Hx Reported Additional Past Surgical History / Comment(s): Ct guided L lung biopsy, L eye cataract removal/lens implant. Past Anesthesia/Blood Transfusion Reactions: No Reported Reaction Smoking Status: Former smoker - Past Family History Mother Family Medical History: Cancer Additional Family Medical History / Comment(s): Pancreatic cancer Father Additional Family Medical History / Comment(s): Pt states father during WWII when pt was 6 yrs old. Medications and Allergies Home Medications Medication Instructions Recorded Confirmed Type Aspirin EC [Ecotrin Low Dose] 81 mg PO HS 06/18/20 10/02/20 History Cholecalciferol [Vitamin D3 (25 5,000 unit PO HS 06/18/20 10/02/20 History Mcg = 1000 Iu)] Lisinopril [Zestril] 10 mg PO DAILY 06/18/20 10/02/20 History Simvastatin [Zocor] 20 mg PO HS 06/18/20 10/02/20 History metFORMIN HCL ER [Glucophage Xr] 1,000 mg PO BID 06/18/20 10/02/20 History Ondansetron HCl [Zofran] 4 mg PO Q6HR PRN 07/24/20 10/02/20 History Fluconazole [Diflucan] 100 mg PO DAILY #30 tab 09/19/20 10/02/20 Rx Mirtazapine [Remeron] 15 mg PO HS 10/02/20 10/02/20 History Omeprazole 20 mg PO DAILY 10/02/20 10/02/20 History Allergies Allergy/AdvReac Type Severity Reaction Status Date / Time No Known Allergies Allergy Verified 10/02/20 11:27 Physical Exam Vitals: Vital Signs Temp Pulse Pulse Resp BP BP Pulse Ox 10/02/20 16:00 18 10/02/20 15:25 100 10/02/20 14:35 97.2 F L 96 18 142/65 95 10/02/20 13:30 100 18 123/57 95 10/02/20 13:00 99 18 123/83 95 10/02/20 12:30 103 H 18 107/60 95 10/02/20 10:47 97.4 F L 113 H 18 94/53 91 L Intake and Output 10/02/20 10/02/20 10/02/20 06:59 14:59 22:59 Other: Voiding Method Urinal # Voids 1 Weight 55.338 kg 55.338 kg Results CBC & Chem 7: 10/02/20 11:39 10/02/20 11:39 Labs: Abnormal Lab Results - Last 24 Hours (Table) 10/02/20 10/02/20 10/02/20 Range/Units 11:29 11:29 11:39 WBC 71.4 H* (3.8-10.6) k/uL RBC 3.37 L (4.30-5.90) m/uL Hgb 9.8 L (13.0-17.5) gm/dL Hct 31.2 L (39.0-53.0) % RDW 19.2 H (11.5-15.5) % Neutrophils # 69.2 H (1.3-7.7) k/uL Lymphocytes # 0.6 L (1.0-4.8) k/uL Eosinophils # 0.8 H (0-0.7) k/uL INR (<1.2) APTT (22.0-30.0) sec D-Dimer 3.55 H (<0.60) mg/L FEU Sodium (137-145) mmol/L Potassium (3.5-5.1) mmol/L Chloride (98-107) mmol/L Carbon Dioxide (22-30) mmol/L BUN (9-20) mg/dL Glucose (74-99) mg/dL POC Glucose (mg/dL) (75-99) mg/dL Plasma Lactic Acid Ba (0.7-2.0) mmol/L Calcium (8.4-10.2) mg/dL Magnesium (1.6-2.3) mg/dL Lactate Dehydrogenase 985 H (313-618) U/L C-Reactive Protein 205.0 H (<10.0) mg/L Total Protein (6.3-8.2) g/dL Albumin (3.5-5.0) g/dL 10/02/20 10/02/20 10/02/20 Range/Units 11:39 11:39 11:39 WBC (3.8-10.6) k/uL RBC (4.30-5.90) m/uL Hgb (13.0-17.5) gm/dL Hct (39.0-53.0) % RDW (11.5-15.5) % Neutrophils # (1.3-7.7) k/uL Lymphocytes # (1.0-4.8) k/uL Eosinophils # (0-0.7) k/uL INR 1.2 H (<1.2) APTT 20.8 L (22.0-30.0) sec D-Dimer (<0.60) mg/L FEU Sodium 128 L (137-145) mmol/L Potassium 5.2 H (3.5-5.1) mmol/L Chloride 95 L (98-107) mmol/L Carbon Dioxide 21 L (22-30) mmol/L BUN 27 H (9-20) mg/dL Glucose 238 H (74-99) mg/dL POC Glucose (mg/dL) (75-99) mg/dL Plasma Lactic Acid Ba 4.3 H* (0.7-2.0) mmol/L Calcium 11.8 H (8.4-10.2) mg/dL Magnesium 1.2 L (1.6-2.3) mg/dL Lactate Dehydrogenase (313-618) U/L C-Reactive Protein (<10.0) mg/L Total Protein 5.9 L (6.3-8.2) g/dL Albumin 2.7 L (3.5-5.0) g/dL 10/02/20 10/02/20 10/02/20 Range/Units 15:17 17:17 18:22 WBC (3.8-10.6) k/uL RBC (4.30-5.90) m/uL Hgb (13.0-17.5) gm/dL Hct (39.0-53.0) % RDW (11.5-15.5) % Neutrophils # (1.3-7.7) k/uL Lymphocytes # (1.0-4.8) k/uL Eosinophils # (0-0.7) k/uL INR (<1.2) APTT (22.0-30.0) sec D-Dimer (<0.60) mg/L FEU Sodium (137-145) mmol/L Potassium (3.5-5.1) mmol/L Chloride (98-107) mmol/L Carbon Dioxide (22-30) mmol/L BUN (9-20) mg/dL Glucose (74-99) mg/dL POC Glucose (mg/dL) 196 H (75-99) mg/dL Plasma Lactic Acid Ba 3.2 H* 2.4 H* (0.7-2.0) mmol/L Calcium (8.4-10.2) mg/dL Magnesium (1.6-2.3) mg/dL Lactate Dehydrogenase (313-618) U/L C-Reactive Protein (<10.0) mg/L Total Protein (6.3-8.2) g/dL Albumin (3.5-5.0) g/dL 10/02/20 Range/Units 19:50 WBC (3.8-10.6) k/uL RBC (4.30-5.90) m/uL Hgb (13.0-17.5) gm/dL Hct (39.0-53.0) % RDW (11.5-15.5) % Neutrophils # (1.3-7.7) k/uL Lymphocytes # (1.0-4.8) k/uL Eosinophils # (0-0.7) k/uL INR (<1.2) APTT (22.0-30.0) sec D-Dimer (<0.60) mg/L FEU Sodium (137-145) mmol/L Potassium (3.5-5.1) mmol/L Chloride (98-107) mmol/L Carbon Dioxide (22-30) mmol/L BUN (9-20) mg/dL Glucose (74-99) mg/dL POC Glucose (mg/dL) 192 H (75-99) mg/dL Plasma Lactic Acid Ba (0.7-2.0) mmol/L Calcium (8.4-10.2) mg/dL Magnesium (1.6-2.3) mg/dL Lactate Dehydrogenase (313-618) U/L C-Reactive Protein (<10.0) mg/L Total Protein (6.3-8.2) g/dL Albumin (3.5-5.0) g/dL Thrombosis Risk Factor Assmnt - Choose All That Apply Any of the Below Risk Factors Present?: Yes Each Factor Represents 1 point: Medical pt on bed rest, Serious lung disease incl. pneumonia (< 1month) Other Risk Factors: Yes Each Risk Factor Represents 2 Points: Patient confined to bed, Malignancy Each Risk Factor Represents 3 Points: Age 75 years or older Other congenital or acquired thrombophilia - If yes, enter type in comment: No Thrombosis Risk Factor Assessment Total Risk Factor Score: 9 Thrombosis Risk Factor Assessment Level: High Risk
[2020-10-02] MEDS: LACTATED RINGERS 1,000 ML IV SCH (23:12)
[2020-10-02] MEDS: IPRATROPIUM-ALBUTEROL 3 ML NEB INHALATION SCH (23:32)
[2020-10-03] MEDS: IPRATROPIUM-ALBUTEROL 3 ML NEB INHALATION SCH ×5 (04:16→18:50)
--- NOTE | 2020-10-03 04:38 | CONS ---
CONSULTATION DATE OF SERVICE: 10/02/2020 REASON FOR CONSULTATION: Pneumonia. HISTORY OF PRESENT ILLNESS: The patient is a 80-year-old male with a recent diagnosis of non-small cell lung cancer diagnosed in June of 2020 poorly differentiated in this patient who is status post chemo and radiation therapy with the last chemo on 09/04/2020. The patient was subsequently admitted to this facility for acute kidney injury and weakness and question of pneumonia. Patient was admitted to the hospital from 09/16/2020 until 09/19/2020 and subsequently discharged home on oral Augmentin. The patient is now presenting back to [facility] ER for evaluation of increasing shortness of breath and been getting worse for the last day or 2. The patient also complaining of cough, which is mild to moderate intensity with occasional sputum. No hemoptysis. No pleuritic chest pain. No nausea, no vomiting. No abdominal pain or any diarrhea. With these symptoms, the patient was evaluated by the ER physician. On arrival to the ER, the patient was afebrile. The patient was hypoxic requiring supplemental oxygen. The patient did have a white count of 71.4. D-dimer was elevated to 3.55. Liver enzymes were normal. The patient did have elevated LDH and CRP. Rios PCR came back negative. The patient did have a chest x-ray, worsening diffuse bilateral reticular infiltrate or edema followed by a CT of the chest which did show extensive reticular nodular infiltrate throughout the lungs with pleural effusion, mostly new compared to old exam. The patient has been admitted to the hospital. Infectious Disease was consulted for further management of antibiotic therapy. REVIEW OF SYSTEMS: Positive points have been mentioned in HPI. Rest of systems negative. PAST MEDICAL HISTORY: Non-small cell lung cancer status post chemo and radiation, diabetes mellitus. PAST SURGICAL HISTORY: Cataract surgery, left lung biopsy. SOCIAL HISTORY: Remote history of smoking. No drinking or drug use. FAMILY HISTORY: Mother history of pancreatic cancer. ALLERGIES: No known drug allergies. MEDICATIONS: Medications include the patient is currently on Tylenol, aspirin, Lipitor, Diflucan, NovoLog, Zestril, Glucophage, Solu-Medrol, Remeron, Narcan, Zofran, Protonix. PHYSICAL EXAMINATION: Blood pressure 142/65 with a pulse of 96, temperature 97.2. He is 95% on 6 L nasal cannula. General description is an elderly male lying in bed in no distress. No tachypnea or accessory muscle of respiration use. HEENT: Examination shows pallor. No scleral icterus. Oral mucous membrane is dry. NECK: Trachea central. No thyromegaly. LUNGS: Unlabored breathing, decreased intensity of breath sounds. No wheeze. HEART: S1, S2. Regular rate and rhythm. ABDOMEN: Soft, no tenderness. No guarding or rigidity. EXTREMITIES: No edema of the feet. SKIN EXAMINATION: No rash or mass palpable. NEUROLOGICAL: The patient is awake, alert, oriented x3. Mood and affect normal. LABS: Hemoglobin 9.8, white count 71.4, BUN of 27, creatinine 0.93. Potassium is 5.2. Lactic acid is 4.3 repeat is 3.2. Rios PCR negative. Chest x-ray and CT report mentioned above. DIAGNOSTIC IMPRESSION: Patient admitted to the hospital with increasing shortness of breath and also having a cough with evidence of diffuse reticular nodular pattern with question of possible lymphangitic spread of his non-small cell cancer versus pneumonia in this patient who has been in and out of the hospital and exposed to chemo and antibiotic. We need to cover the resistant gram-positive and gram-negative while waiting for the culture to finalize and condition to stabilize. PLAN: 1. We will try to obtain sputum for Gram stain and culture and check a procalcitonin level. 2. We will add vancomycin pharmacy to dose and cefepime 2 grams q.12 hours. 3. We will follow up on clinical condition and culture to further adjust medication if needed. Thank you for this consultation. Will follow this patient along with you. MMODL / IJN: [id number] /
[2020-10-03 05:15] LABS: Hemoglobin A1C 7.4 % (4.0-6.0)
[2020-10-03] MEDS: methylPREDNISolone SOD SUCCI 125 MG/2 ML VIAL IV SCH ×4 (05:59→23:50)
[2020-10-03 06:59] LABS: Anisocytosis Slight; Basophils # (A) 0.2 k/uL (0-0.2); Basophils % (A) 0 %; Eosinophils # (A) 0.3 k/uL (0-0.7); Eosinophils % (A) 0 %; HCT 30.4 % (39.0-53.0); HGB 9.3 gm/dL (13.0-17.5); Hypochromasia Moderate; Lymphocytes # (A) 0.1 k/uL (1.0-4.8); Lymphocytes % (A) 0 %; MCH 29.1 pg (25.0-35.0); MCHC 30.5 g/dL (31.0-37.0); MCV 95.3 fL (80.0-100.0); Macrocytosis Slight; Mean Platelet Volume 8.5; Monocytes # (A) 0.5 k/uL (0-1.0); Monocytes % (A) 1 %; Neutrophils # (A) 75.3 k/uL (1.3-7.7); Neutrophils % (A) 99 %; Platelet Count 288 k/uL (150-450); RBC 3.19 m/uL (4.30-5.90); RDW 19.1 % (11.5-15.5)
[2020-10-03 07:06] LABS: WBC 76.4 k/uL (3.8-10.6)
[2020-10-03] MEDS ORDERED: IPRATROPIUM-ALBUTEROL 3 ML NEB ONE (07:17)
[2020-10-03 07:38] LABS: Glucose,Whole Blood 249 mg/dL (75-99)
[2020-10-03] MEDS: lisinopriL 10 MG TAB PO SCH (08:11)
[2020-10-03] MEDS: metFORMIN 500 MG TAB PO SCH ×2 (08:11→21:45)
[2020-10-03] MEDS: PANTOPRAZOLE 40 MG TABLET PO SCH (08:11)
[2020-10-03] MEDS: FLUCONAZOLE 100 MG TAB PO SCH (08:14)
[2020-10-03] MEDS: CEFEPIME 2 GM in SODIUM CHLORIDE 0.9% 100 ML IVPB SCH ×2 (08:14→21:45)
[2020-10-03] MEDS: INSULIN ASPART (NovoLOG) 100 UNIT/ML VIAL SQ SCH ×4 (08:16→21:45)
[2020-10-03] MEDS: guaiFENesin 600 MG TABLET.ER PO SCH ×2 (08:16→21:48)
[2020-10-03] MEDS ORDERED: PANTOPRAZOLE 40 MG/10 ML VIAL IV SCH (09:00)
[2020-10-03 09:58] LABS: African American GFR (CKD) 83.2 (60.0-200.0); Albumin 2.9 g/dL (3.80-4.90); Albumin/Globulin Ratio 1.26 (1.60-3.17); Anion Gap 10.6 mmol/L (4.00-12.00); Calcium 11.4 mg/dL (8.7-10.3); Carbon Dioxide 25.4 mmol/L (21.6-31.8); Globulin 2.3 g/dL (1.6-3.3); Non-African American GFR(CKD) 71.8 (60.0-200.0); Total Bilirubin 0.2 mg/dL (0.2-1.2); Total Protein 5.2 g/dL (6.2-8.2)
[2020-10-03] MEDS: VANCOMYCIN 1,000 MG in SODIUM CHLORIDE 0.9% 250 ML IVPB SCH (10:47)
[2020-10-03 11:50] LABS: Glucose,Whole Blood 208 mg/dL (75-99)
[2020-10-03] MEDS: LACTATED RINGERS 1,000 ML IV SCH ×3 (13:10→21:47)
--- NOTE | 2020-10-03 13:49 | P.PN ---
Subjective Progress Note Date: 10/03/20 Principal diagnosis: Dyspnea, weakness and poor appetite This is a 72-year-old white male patient with history of diagnosis of non-small cell lung cancer who was started on chemotherapy and radiation. Patient follows with Dr. Garcia and Dr. Velazquez from the Coumadin is Mauro Kashif Cain. He states he had finished his chemotherapy on 09/04/2020. He had a recent hospitalization from 09/16/2020 through 09/19/2020 when he came in with the signs of severe dehydration, loss of appetite, following his chemotherapy. Patient also had acute kidney injury, leukocytosis. He was checked for COVID 19 and influenza which were negative. He was hydrated, he was treated with antibio tics, for possibility of pneumonia, currently improved, he was discharged home on the course of Augmentin. Patient came back to the emergency department on 10/02/2020 with complaints of worsening shortness of breath, weakness, loss of appetite, and patient has not been able to take in much in the way of oral intake. Denies any fever or chills, he states he is bringing up some heavy phlegm, denies any chest pain, he has a weak but congested cough. He was started on empiric AmBisome the form of cefepime and vancomycin, he was tested for COVID 19 and was found to be negative. His chest x-ray showed a worsening diffuse bilateral reticulonodular infiltrates and/or edema with possibility of atypical infection, and possible adverse reactive changes to the treatment for lung cancer. He is not normally on oxygen, right now he is wearing 6 L of oxygen pulse ox of 95%, he has been afebrile, his blood work revealed leukocytosis, with white blood cell, 71.4, hemoglobin of 9.8, his INR was 1.2, sodium was 128, potassium is 5.2, chloride was 95, CO2 is 21, B1 is 27 creatinine 0.93, and plasma lactic acid of 4.3, improved with IV rehydration, however still remains elevated. ID service was consulted, and we were consulted for pulmonary evaluation. On 10/03/2020 patient seen in follow-up on medical surgical floor, he is awake and alert, remains on 6 L of oxygen pulse ox of 94%, he states he still about the same, still very pale and weak, but denies any shortness of breath, no cough, no fever or chills, denies any chest pain, no back pain. His been afebrile, today's labs have been reviewed, showing white blood cell, still significantly elevated at 76.4, hemoglobin is 9.3, sodium is 134, potassium is 5.0, BUN of 29, creatinine is 1, calcium is 11.4, AST is 18, ALT 17, alkaline phosphatase within normal limits at 103 patient was rehydrated, creatinine fluids at 20 ML per hour, remains on IV Solu-Medrol 60 every 6 hours and antibiotics in the form of cefepime, Diflucan, and vancomycin. COVID 19 was not detected, his Legionella urine antigen was negative, pro-calcitonin level came back elevated at 0.49. Medical oncology has been consulted, radiation oncology has been consulted,ID service consulted Objective - Vital Signs Vital signs: Vital Signs Temp 97.6 F 10/03/20 12:27 Pulse 96 10/03/20 12:27 Resp 17 10/03/20 12:27 BP 154/68 10/03/20 12:27 Pulse Ox 94 L 10/03/20 12:27 Intake & Output 10/02/20 10/03/20 10/03/20 18:59 06:59 18:59 Intake Total 1700 Output Total 400 Balance 1300 Weight 55.338 kg Intake: Intake, IV Titration 750 Amount Azithromycin 500 mg In 250 Sodium Chloride 0.9% 250 ml @ 250 mls/hr IVPB ONCE STA Rx#:[id number] Cefepime 2 gm In Sodium 100 Chloride 0.9% 100 ml @ 25 mls/hr IVPB Q12HR [facility] Rx #:[id number] Sodium Chloride 0.9% 1, 400 000 ml @ 130 mls/hr IV . [id number] STA Rx#:[id number] Oral 950 Output: Urine 400 Other: Voiding Method Urinal Urinal # Voids 1 1 - Exam GENERAL EXAM: Alert, 80-year-old white female, appears chronically ill, pale, on 6 L of oxygen a pulse ox of 94%, resting comfortably in bed appears weak, comfortable in no apparent distress. HEAD: Normocephalic/atraumatic. EYES: Normal reaction of pupils, equal size. Conjunctiva pink, sclera white. NOSE: Clear with pink turbinates. THROAT: No erythema or exudates. NECK: No masses, no JVD, no thyroid enlargement, no adenopathy. CHEST: No chest wall deformity. Symmetrical expansion. LUNGS: Equal air entry with no crackles, wheeze, rhonchi or dullness. CVS: Regular rate and rhythm, normal S1 and S2, no gallops, no murmurs, no rubs ABDOMEN: Soft, nontender. No hepatosplenomegaly, normal bowel sounds, no guarding or rigidity. EXTREMITIES: No clubbing, no edema, no cyanosis, 2+ pulses and upper and lower extremities. MUSCULOSKELETAL: Muscle strength and tone normal. SPINE: No scoliosis or deformity SKIN: No rashes CENTRAL NERVOUS SYSTEM: Alert and oriented -3. No focal deficits, tone is normal in all 4 extremities. PSYCHIATRIC: Alert and oriented -3. Appropriate affect. Intact judgment and insight. - Labs CBC & Chem 7: 10/03/20 06:20 10/03/20 06:20 Labs: Abnormal Lab Results - Last 24 Hours (Table) 10/02/20 10/02/20 10/02/20 Range/Units 11:29 11:29 11:29 WBC (3.8-10.6) k/uL RBC (4.30-5.90) m/uL Hgb (13.0-17.5) gm/dL Hct (39.0-53.0) % MCHC (31.0-37.0) g/dL RDW (11.5-15.5) % Neutrophils # (1.3-7.7) k/uL Lymphocytes # (1.0-4.8) k/uL D-Dimer 3.55 H (<0.60) mg/L FEU Sodium (135-145) mmol/L BUN (9.0-27.0) mg/dL BUN/Creatinine Ratio (12.00-20.00) Ratio Glucose (70-110) mg/dL POC Glucose (mg/dL) (75-99) mg/dL Hemoglobin A1c (4.0-6.0) % Plasma Lactic Acid Ba (0.7-2.0) mmol/L Calcium (8.7-10.3) mg/dL Lactate Dehydrogenase 985 H (313-618) U/L C-Reactive Protein 205.0 H (<10.0) mg/L Total Protein (6.2-8.2) g/dL Albumin (3.80-4.90) g/dL Albumin/Globulin Ratio (1.60-3.17) g/dL Procalcitonin 0.49 H (0.02-0.09) ng/mL 10/02/20 10/02/20 10/02/20 Range/Units 11:39 15:17 17:17 WBC (3.8-10.6) k/uL RBC (4.30-5.90) m/uL Hgb (13.0-17.5) gm/dL Hct (39.0-53.0) % MCHC (31.0-37.0) g/dL RDW (11.5-15.5) % Neutrophils # (1.3-7.7) k/uL Lymphocytes # (1.0-4.8) k/uL D-Dimer (<0.60) mg/L FEU Sodium (135-145) mmol/L BUN (9.0-27.0) mg/dL BUN/Creatinine Ratio (12.00-20.00) Ratio Glucose (70-110) mg/dL POC Glucose (mg/dL) 196 H (75-99) mg/dL Hemoglobin A1c 7.4 H (4.0-6.0) % Plasma Lactic Acid Ba 3.2 H* (0.7-2.0) mmol/L Calcium (8.7-10.3) mg/dL Lactate Dehydrogenase (313-618) U/L C-Reactive Protein (<10.0) mg/L Total Protein (6.2-8.2) g/dL Albumin (3.80-4.90) g/dL Albumin/Globulin Ratio (1.60-3.17) g/dL Procalcitonin (0.02-0.09) ng/mL 10/02/20 10/02/20 10/03/20 Range/Units 18:22 19:50 06:20 WBC 76.4 H* (3.8-10.6) k/uL RBC 3.19 L (4.30-5.90) m/uL Hgb 9.3 L (13.0-17.5) gm/dL Hct 30.4 L (39.0-53.0) % MCHC 30.5 L (31.0-37.0) g/dL RDW 19.1 H (11.5-15.5) % Neutrophils # 75.3 H (1.3-7.7) k/uL Lymphocytes # 0.1 L (1.0-4.8) k/uL D-Dimer (<0.60) mg/L FEU Sodium (135-145) mmol/L BUN (9.0-27.0) mg/dL BUN/Creatinine Ratio (12.00-20.00) Ratio Glucose (70-110) mg/dL POC Glucose (mg/dL) 192 H (75-99) mg/dL Hemoglobin A1c (4.0-6.0) % Plasma Lactic Acid Ba 2.4 H* (0.7-2.0) mmol/L Calcium (8.7-10.3) mg/dL Lactate Dehydrogenase (313-618) U/L C-Reactive Protein (<10.0) mg/L Total Protein (6.2-8.2) g/dL Albumin (3.80-4.90) g/dL Albumin/Globulin Ratio (1.60-3.17) g/dL Procalcitonin (0.02-0.09) ng/mL 10/03/20 10/03/20 10/03/20 Range/Units 06:20 07:36 11:49 WBC (3.8-10.6) k/uL RBC (4.30-5.90) m/uL Hgb (13.0-17.5) gm/dL Hct (39.0-53.0) % MCHC (31.0-37.0) g/dL RDW (11.5-15.5) % Neutrophils # (1.3-7.7) k/uL Lymphocytes # (1.0-4.8) k/uL D-Dimer (<0.60) mg/L FEU Sodium 134 L (135-145) mmol/L BUN 29.0 H (9.0-27.0) mg/dL BUN/Creatinine Ratio 29.00 H (12.00-20.00) Ratio Glucose 267 H (70-110) mg/dL POC Glucose (mg/dL) 249 H 208 H (75-99) mg/dL Hemoglobin A1c (4.0-6.0) % Plasma Lactic Acid Ba (0.7-2.0) mmol/L Calcium 11.4 H (8.7-10.3) mg/dL Lactate Dehydrogenase (313-618) U/L C-Reactive Protein (<10.0) mg/L Total Protein 5.2 L (6.2-8.2) g/dL Albumin 2.90 L (3.80-4.90) g/dL Albumin/Globulin Ratio 1.26 L (1.60-3.17) g/dL Procalcitonin (0.02-0.09) ng/mL Assessment and Plan Plan: Assessment: #1. Acute hypoxic respiratory failure with the possibility of underlying pneumonia, healthcare acquired, an immunocompromised host, and there is a possibility of non-small cell lung cancer progression with appearance of lymphangitic carcinomatosis, on the appearance of the chest x-ray that showed w orsening diffuse bilateral reticulonodular infiltrates. High resolution CT was obtained showing extensive reticular nodular infiltrates throughout the lungs with pleural effusions consistent with inflammatory disease or rapidly progressing lymphangitic metastatic disease. There is a 4 x 2 cm left-sided paraspinal infiltrate in the mid thoracic spine with possibility of skeletal metastasis #2. Non-small cell lung cancer diagnosed in June 2020, poorly differentiated, diagnosed via CT-guided biopsy on 06/19/2020 status post concurrent chemoradiation with weekly carboplatin and Taxol as a chemotherapy arm, and patient states he completed treatment on 09/04/2020 #3. Recent hospitalization for dehydration, acute kidney injury and weakness and possibility of pneumonia, 09/16/2020 through 09/19/2020 discharged home on oral antibiotics #4. 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 Hyponatremia related to hypovolemia #6. Weakness, dehydration, poor oral intake #7. Significant leukocytosis #8. Lactic acidosis, improving with IV hydration still remains significantly elevated, with possibility of sepsis #9. Diabetes mellitus type 2 #10. Former smoker Plan: No worsening dyspnea, no fever or chills, continue current antibiotics, ID service is following, will obtain follow-up chest x-ray in the morning, may consider right thoracentesis for diagnostic purposes, for now continue medical treatment. I performed a history & physical examination of the patient and discussed their management with my nurse practitioner, Delaney Alvarado. I reviewed the nurse practitioner's note and agree with the documented findings and plan of care. Lung sounds are positive for diminished breath sounds, congestive cough The findings and the impression was discussed with the patient. I attest to the documentation by the nurse practitioner. Time with Patient: Less than 30
[2020-10-03 16:08] VITALS: BMI 18.5
[2020-10-03] MEDS ORDERED: FUROSEMIDE 10 MG/ML 2 ML VIAL IV ONE (16:24)
[2020-10-03] MEDS: ENOXAPARIN 40 MG/0.4 ML SYRINGE SQ SCH (16:57)
--- NOTE | 2020-10-03 17:12 | P.CONS ---
History of Present Illness - History of Present Illness Jordan presented with L sided posterior chest pain X 2 months associated with anorexia and 20 lbs weight loss, CXR and CT Scan of chest revealed L Hilar mass (3.9X3.1X4.0 cm) pleural-based along with R hilar lymphadenopathy (3.2X2.4 cm). PET Jj revealed positive uptake at both sites, no distant metastatic lesions seen. 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 Eyad snoked 2and / PPD X 45 years, quit smoking 16 years ago, he was exposed to agent [place] while serving in [employer]. 08/09/20: feels Ok, tolerating concurrent Radiation therapy/Chemotherapy (Weekly carboplatinum+Taxol) very well with minimal side effects (Fatigue), continues to have L lower chest pain (controlled by [place]) 08/30/20: Feels well, completed chemotherapy , will complete XRT today. 09/26/20-patient seen today in follow-up. He was in the hospital for several days, discharged on/around 09/19. He was discharged on Questran for diarrhea, n o significant plan complaints of the same today, he continues to have a poor appetite, no acute vomiting. He states he ended up having a CT chest while in the hospital ([facility]). No knowledge of EUS, asking about a PET. Past Medical History Past Medical History: Cancer, Diabetes Mellitus, GERD/Reflux, Hyperlipidemia, Hypertension Additional Past Medical History / Comment(s): Pt recently admitted to [facility] on 09/16/20 with generalized fatigue 2ndary to dehydration/pulmonary malignancy/leukocytosis/sepsis most likely 2ndary to pneumonia/acute renal failure 2ndary to dehydration/hypomagnesemia/hyperkalemia/oral thrush/mucositis. 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 History of Any Multi-Drug Resistant Organisms: None Reported Past Surgical History: No Surgical Hx Reported Additional Past Surgical History / Comment(s): Ct guided L lung biopsy, L eye cataract removal/lens implant. Past Anesthesia/Blood Transfusion Reactions: No Reported Reaction Smoking Status: Former smoker - Past Family History Mother Family Medical History: Cancer Additional Family Medical History / Comment(s): Pancreatic cancer Father Additional Family Medical History / Comment(s): Pt states father during WWII when pt was 6 yrs old. Medications and Allergies Home Medications Medication Instructions Recorded Confirmed Type Aspirin EC [Ecotrin Low Dose] 81 mg PO HS 06/18/20 10/02/20 History Cholecalciferol [Vitamin D3 (25 5,000 unit PO HS 06/18/20 10/02/20 History Mcg = 1000 Iu)] Lisinopril [Zestril] 10 mg PO DAILY 06/18/20 10/02/20 History Simvastatin [Zocor] 20 mg PO HS 06/18/20 10/02/20 History metFORMIN HCL ER [Glucophage Xr] 1,000 mg PO BID 06/18/20 10/02/20 History Ondansetron HCl [Zofran] 4 mg PO Q6HR PRN 07/24/20 10/02/20 History Fluconazole [Diflucan] 100 mg PO DAILY #30 tab 09/19/20 10/02/20 Rx Mirtazapine [Remeron] 15 mg PO HS 10/02/20 10/02/20 History Omeprazole 20 mg PO DAILY 10/02/20 10/02/20 History Allergies Allergy/AdvReac Type Severity Reaction Status Date / Time No Known Allergies Allergy Verified 10/02/20 11:27 Physical Exam Vitals: Vital Signs Temp Pulse Pulse Resp BP BP Pulse Ox 10/03/20 05:34 98.5 F 96 20 159/71 94 L 10/03/20 00:00 94 16 10/02/20 23:45 70 16 10/02/20 23:35 68 16 10/02/20 21:04 98.4 F 94 16 157/72 92 L 10/02/20 16:00 18 10/02/20 15:25 100 10/02/20 14:35 97.2 F L 96 18 142/65 95 10/02/20 13:30 100 18 123/57 95 10/02/20 13:00 99 18 123/83 95 10/02/20 12:30 103 H 18 107/60 95 10/02/20 10:47 97.4 F L 113 H 18 94/53 91 L Intake and Output 10/02/20 10/03/20 10/03/20 22:59 06:59 14:59 Intake Total 1110 590 Output Total 400 Balance 1110 190 Intake: Intake, IV Titration 750 Amount Azithromycin 500 mg In 250 Sodium Chloride 0.9% 250 ml @ 250 mls/hr IVPB ONCE STA Rx#:[id number] Cefepime 2 gm In Sodium 100 Chloride 0.9% 100 ml @ 25 mls/hr IVPB Q12HR LEXI Rx #:[id number] Sodium Chloride 0.9% 1, 400 000 ml @ 130 mls/hr IV . Q7H42M STA Rx#:[id number] Oral 360 590 Output: Urine 400 Other: Voiding Method Urinal Urinal # Voids 1 Weight 55.338 kg Results CBC & Chem 7: 10/03/20 06:20 10/02/20 11:39 Labs: Abnormal Lab Results - Last 24 Hours (Table) 10/02/20 10/02/20 10/02/20 Range/Units 11:29 11:29 11:29 WBC (3.8-10.6) k/uL RBC (4.30-5.90) m/uL Hgb (13.0-17.5) gm/dL Hct (39.0-53.0) % MCHC (31.0-37.0) g/dL RDW (11.5-15.5) % Neutrophils # (1.3-7.7) k/uL Lymphocytes # (1.0-4.8) k/uL Eosinophils # (0-0.7) k/uL INR (<1.2) APTT (22.0-30.0) sec D-Dimer 3.55 H (<0.60) mg/L FEU Sodium (137-145) mmol/L Potassium (3.5-5.1) mmol/L Chloride (98-107) mmol/L Carbon Dioxide (22-30) mmol/L BUN (9-20) mg/dL Glucose (74-99) mg/dL POC Glucose (mg/dL) (75-99) mg/dL Hemoglobin A1c (4.0-6.0) % Plasma Lactic Acid Ba (0.7-2.0) mmol/L Calcium (8.4-10.2) mg/dL Magnesium (1.6-2.3) mg/dL Lactate Dehydrogenase 985 H (313-618) U/L C-Reactive Protein 205.0 H (<10.0) mg/L Total Protein (6.3-8.2) g/dL Albumin (3.5-5.0) g/dL Procalcitonin 0.49 H (0.02-0.09) ng/mL 10/02/20 10/02/20 10/02/20 Range/Units 11:39 11:39 11:39 WBC 71.4 H* (3.8-10.6) k/uL RBC 3.37 L (4.30-5.90) m/uL Hgb 9.8 L (13.0-17.5) gm/dL Hct 31.2 L (39.0-53.0) % MCHC (31.0-37.0) g/dL RDW 19.2 H (11.5-15.5) % Neutrophils # 69.2 H (1.3-7.7) k/uL Lymphocytes # 0.6 L (1.0-4.8) k/uL Eosinophils # 0.8 H (0-0.7) k/uL INR 1.2 H (<1.2) APTT 20.8 L (22.0-30.0) sec D-Dimer (<0.60) mg/L FEU Sodium 128 L (137-145) mmol/L Potassium 5.2 H (3.5-5.1) mmol/L Chloride 95 L (98-107) mmol/L Carbon Dioxide 21 L (22-30) mmol/L BUN 27 H (9-20) mg/dL Glucose 238 H (74-99) mg/dL POC Glucose (mg/dL) (75-99) mg/dL Hemoglobin A1c (4.0-6.0) % Plasma Lactic Acid Ba (0.7-2.0) mmol/L Calcium 11.8 H (8.4-10.2) mg/dL Magnesium 1.2 L (1.6-2.3) mg/dL Lactate Dehydrogenase (313-618) U/L C-Reactive Protein (<10.0) mg/L Total Protein 5.9 L (6.3-8.2) g/dL Albumin 2.7 L (3.5-5.0) g/dL Procalcitonin (0.02-0.09) ng/mL 10/02/20 10/02/20 10/02/20 Range/Units 11:39 11:39 15:17 WBC (3.8-10.6) k/uL RBC (4.30-5.90) m/uL Hgb (13.0-17.5) gm/dL Hct (39.0-53.0) % MCHC (31.0-37.0) g/dL RDW (11.5-15.5) % Neutrophils # (1.3-7.7) k/uL Lymphocytes # (1.0-4.8) k/uL Eosinophils # (0-0.7) k/uL INR (<1.2) APTT (22.0-30.0) sec D-Dimer (<0.60) mg/L FEU Sodium (137-145) mmol/L Potassium (3.5-5.1) mmol/L Chloride (98-107) mmol/L Carbon Dioxide (22-30) mmol/L BUN (9-20) mg/dL Glucose (74-99) mg/dL POC Glucose (mg/dL) (75-99) mg/dL Hemoglobin A1c 7.4 H (4.0-6.0) % Plasma Lactic Acid Ba 4.3 H* 3.2 H* (0.7-2.0) mmol/L Calcium (8.4-10.2) mg/dL Magnesium (1.6-2.3) mg/dL Lactate Dehydrogenase (313-618) U/L C-Reactive Protein (<10.0) mg/L Total Protein (6.3-8.2) g/dL Albumin (3.5-5.0) g/dL Procalcitonin (0.02-0.09) ng/mL 10/02/20 10/02/20 10/02/20 Range/Units 17:17 18:22 19:50 WBC (3.8-10.6) k/uL RBC (4.30-5.90) m/uL Hgb (13.0-17.5) gm/dL Hct (39.0-53.0) % MCHC (31.0-37.0) g/dL RDW (11.5-15.5) % Neutrophils # (1.3-7.7) k/uL Lymphocytes # (1.0-4.8) k/uL Eosinophils # (0-0.7) k/uL INR (<1.2) APTT (22.0-30.0) sec D-Dimer (<0.60) mg/L FEU Sodium (137-145) mmol/L Potassium (3.5-5.1) mmol/L Chloride (98-107) mmol/L Carbon Dioxide (22-30) mmol/L BUN (9-20) mg/dL Glucose (74-99) mg/dL POC Glucose (mg/dL) 196 H 192 H (75-99) mg/dL Hemoglobin A1c (4.0-6.0) % Plasma Lactic Acid Ba 2.4 H* (0.7-2.0) mmol/L Calcium (8.4-10.2) mg/dL Magnesium (1.6-2.3) mg/dL Lactate Dehydrogenase (313-618) U/L C-Reactive Protein (<10.0) mg/L Total Protein (6.3-8.2) g/dL Albumin (3.5-5.0) g/dL Procalcitonin (0.02-0.09) ng/mL 10/03/20 10/03/20 Range/Units 06:20 07:36 WBC 76.4 H* (3.8-10.6) k/uL RBC 3.19 L (4.30-5.90) m/uL Hgb 9.3 L (13.0-17.5) gm/dL Hct 30.4 L (39.0-53.0) % MCHC 30.5 L (31.0-37.0) g/dL RDW 19.1 H (11.5-15.5) % Neutrophils # 75.3 H (1.3-7.7) k/uL Lymphocytes # 0.1 L (1.0-4.8) k/uL Eosinophils # (0-0.7) k/uL INR (<1.2) APTT (22.0-30.0) sec D-Dimer (<0.60) mg/L FEU Sodium (137-145) mmol/L Potassium (3.5-5.1) mmol/L Chloride (98-107) mmol/L Carbon Dioxide (22-30) mmol/L BUN (9-20) mg/dL Glucose (74-99) mg/dL POC Glucose (mg/dL) 249 H (75-99) mg/dL Hemoglobin A1c (4.0-6.0) % Plasma Lactic Acid Ba (0.7-2.0) mmol/L Calcium (8.4-10.2) mg/dL Magnesium (1.6-2.3) mg/dL Lactate Dehydrogenase (313-618) U/L C-Reactive Protein (<10.0) mg/L Total Protein (6.3-8.2) g/dL Albumin (3.5-5.0) g/dL Procalcitonin (0.02-0.09) ng/mL
--- NOTE | 2020-10-03 17:12 | P.PN ---
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 He underwent a course of concurrent chemoradiation, completing his treatment on August 31, 2020. He tolerated treatment well, and was recently hospitalized with complaints of dyspnea. Unfortunately, I was unable to round on the patient in person today. However, I was able to review his imaging with radiology. He underwent a CT scan of the chest on October 02. This revealed diffuse reticular and nodular infiltrate throughout the bilateral lungs. There is no evidence of these changes found on his prior imaging from September 16. Lymphangitic spread of disease was discussed as a possibility. After reviewing this further with radiology, considering is basically normal imaging of the lungs on September 16, this appears to be more of an inflammatory/infectious picture. Furthermore, the left lower lobe pleural- based lesion against the thoracic paravertebral area is consistent with the patient's previously treated tumor. In fact, this is markedly smaller when reviewing his prior imaging. There is no bone metastasis at this location. Therefore, while lymphangitic spread of disease cannot be ruled out, it is much more likely that this picture is that of infection/inflammatory change and radiology feels that possibly even septic emboli could produce some of these imaging findings. This is also highly unlikely to be related to radiation pneumonitis considering the diffuse nature, and is also unlikely related to the patient's previous chemotherapy.
--- NOTE | 2020-10-03 17:24 | PN ---
PROGRESS NOTE DATE OF SERVICE: 10/03/2020 This 80-year-old gentleman who is followed by Dr. Nunez in the outpatient setting has multiple complex medical issues. Patient had progressive pneumonia. The patient is severely hypoxic also. COVID-19 was negative. The patient has a history of non-small- cell cancer. The patient also has increasing shortness of breath. The CT scan showed interstitial nodular lesions, indicating reticular spreading of malignancy. The patient is being closely monitored. Past medical history reviewed. REVIEW OF SYSTEMS: CARDIOVASCULAR SYSTEM: No angina, palpitations. RESPIRATORY SYSTEM: As mentioned earlier. GI: As mentioned earlier. : No dysuria or retention. NERVOUS SYSTEM: No numbness, weakness. CURRENT MEDICATIONS: Reviewed. They include Tylenol, DuoNeb, Lipitor, Pulmicort, cefepime, Diflucan, Lasix, Mucinex. Doses are reviewed. PHYSICAL EXAMINATION: Patient is alert, oriented x3. Pulse 96, blood pressure 154/68, respirations 17, temperature 97.6, pulse ox 94% on 6 L. HEENT: Conjunctivae normal. NECK: No jugular venous distention. CARDIOVASCULAR SYSTEM: S1, S2 muffled. RESPIRATORY SYSTEM: Breath sounds diminished at the bases. Bilateral scattered rhonchi and crackles. Expiratory wheezing also present. ABDOMEN: Soft, non-tender. No mass palpable. LEGS: No edema. No swelling. NERVOUS SYSTEM: No focal deficit. LABS: WBC 71.4, hemoglobin 9.3. Other labs are reviewed. Sodium 134. ASSESSMENT: 1. Acute bilateral interstitial pneumonia with chronic obstructive pulmonary disease, acute exacerbation, possibly Gram-negative with sepsis, present on admission. 2. COVID-19 testing negative. 3. Rule out lymphangitic spread of [id number]-ulov lung cancer. 4. Hyponatremia. 5. Hyperkalemia. 6. Increased white count. 7. Anemia, normocytic anemia of malignancy. 8. Hypomagnesemia. 9. Elevated LDH, CRP and D-dimer. 10.History of diabetes mellitus, type 2. 11.Hypertension. 12.Remote history of nicotine dependence. 13.Severe protein-calorie malnutrition with body mass index of 18.5. 14.FULL CODE. RECOMMENDATIONS AND DISCUSSION: I recommend to continue current medications, continue with the monitoring, symptomatic treatment. Otherwise at this time I recommend continued IV antibiotics. Optimize the bronchodilators. See orders for further details. Continue steroids. Infectious Disease is following the patient closely. COVID-19 is negative. However, I would recommend a CT angio to rule out possible pulmonary embolism because D-dimer is elevated. We will continue to monitor. Guarded prognosis because of multiple complex medical issues. Further recommendations to follow. MMODL / IJN: [id number] /
[2020-10-03] MEDS: FORMOTEROL FUMARATE 20 MCG/2 ML NEBU INHALATION SCH (18:18)
[2020-10-03] MEDS: BUDESONIDE 1 MG/2 ML NEBU INHALATION SCH (18:18)
[2020-10-03 18:22] LABS: Glucose,Whole Blood 245 mg/dL (75-99)
--- NOTE | 2020-10-03 18:22 | CT ---
EXAMINATION TYPE: CT angio chest DATE OF EXAM: 10/03/2020 COMPARISON: 06/18/2020 HISTORY: SOB, hx of lung ca CT DLP: 281 mGycm Automated exposure control for dose reduction was used. CONTRAST: Performed with IV Contrast, patient injected with 75cc mL of Isovue 370. There are 3-D post processed images. There is extensive interstitial and nodular infiltrate throughout the lungs. There is bilateral pleur al effusions. There is left side bronchial adenopathy with lymph nodes up to 1.5 cm. Thoracic aorta i s intact. There is no aneurysm or dissection. Heart size is normal. I see no filling defects in the pulmonary arteries. The thoracic spine is intact. There is no compression fracture. Sternum is intact. I see no evidence of a rib fracture. IMPRESSION: No evidence of pulmonary embolism. Extensive interstitial and nodular infiltrate could relate to lymphangitic metastatic disease. There are numerous nodules that measure up to 12 mm. Extensive lung disease is new compared to old exam. Th ere is paraspinal mass in the left lower lobe superior segment on the old exam that is obscured by th e pleural fluid on today's exam. There is left bronchial adenopathy unchanged.
--- NOTE | 2020-10-03 18:43 | P.PN ---
Progress Note - Text Progress Note Date: 10/03/20 Pt was off unit. Not seen today in formal consult but, history summarized below and did review case with Rad Onc. Pt presented with lt posterior chest pain X 2 months, associated with anorexia and 20 lbs weight loss. CXR and CT chest revealed lt Hilar mass, 3.9 X 3.1 X 4.0cm pleural-based, and rt hilar adenopathy (3.2 X 2.4 cm). PET revealed positive uptake at both sites, no distant metastatic lesions seen. CT-Guided biopsy 06/19/20 revealed poorly-differentiated Adenocarcinoma. 2 and 1/2 PPD X 45 years, quitting 16 years ago, exposed to agent [place] while serving in [employer]. He was started on concurrent chemo/XRT and completed 6 cycles 08/21 and completing XRT 08/30/20. 09/26/20 pt seen today in follow-up after being in the hospital for several days for diarrhea, poor appetite. He did have hydration that day. He is due for Tx f/u PET scan. He progressively worsened and came to ER. He had CT showing rather dramatic change from his scan done on 09/16-images were reviewed with Rad Onc. Rad ONc reviewed images with Radiologist. [place] that acute infection is most likely cause. Agree with abx and steroids at this time. Labs reviewed-leukocytosis with elevated ANC-likely r/t infection. Mild anemia- no intervention. Hypercalcemia-suspect r/t dehydration, recheck in AM after hydration. Will see how pt does.
[2020-10-03 20:25] LABS: Glucose,Whole Blood 214 mg/dL (75-99)
[2020-10-03] MEDS: ATORVASTATIN 10 MG TAB PO SCH (21:45)
[2020-10-03] MEDS: CHOLECALCIFEROL 1,000 UNIT TAB PO SCH (21:45)
[2020-10-03] MEDS: MIRTAZAPINE 15 MG TAB PO SCH (21:46)
[2020-10-03] MEDS: ASPIRIN 81 MG PO SCH (21:46)
--- NOTE | 2020-10-03 22:51 | P.CONS ---
History of Present Illness - Reason for Consult Consult date: 10/03/20 NSCLC, RONNA Requesting physician: Russell Brown - History of Present Illness Pt presented with lt posterior chest pain X 2 months, associated with anorexia and 20 lbs weight loss. CXR and CT chest revealed lt Hilar mass, 3.9 X 3.1 X 4.0cm pleural-based, and rt hilar adenopathy (3.2 X 2.4 cm). PET revealed positive uptake at both sites, no distant metastatic lesions seen. CT-Guided biopsy 06/19/20 revealed poorly-differentiated Adenocarcinoma. 2 and 1/2 PPD X 45 years, quitting 16 years ago, exposed to agent [place] while serving in [employer]. He was started on concurrent chemo/XRT and completed 6 cycles 08/21 and completing XRT 08/30/20. 09/26/20 pt seen today in follow-up after being in the hospital for several days for diarrhea, poor appetite. He did have hydration that day. He is due for Tx f/u PET scan. Weakness, PS progressively worsened and came to ER. He had CT showing rather dramatic change from his scan done on 09/16 Review of Systems 14 point ROS is negative except as stated in HPI Past Medical History Past Medical History: Cancer, Diabetes Mellitus, GERD/Reflux, Hyperlipidemia, Hypertension Additional Past Medical History / Comment(s): Pt recently admitted to [facility] on 09/16/20 with generalized fatigue 2ndary to dehydration/pulmonary malignancy/leukocytosis/sepsis most likely 2ndary to pneumonia/acute renal failure 2ndary to dehydration/hypomagnesemia/hyperkalemia/oral thrush/mucositis. 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 History of Any Multi-Drug Resistant Organisms: None Reported Past Surgical History: No Surgical Hx Reported Additional Past Surgical History / Comment(s): Ct guided L lung biopsy, L eye cataract removal/lens implant. Past Anesthesia/Blood Transfusion Reactions: No Reported Reaction Smoking Status: Former smoker - Past Family History Mother Family Medical History: Cancer Additional Family Medical History / Comment(s): Pancreatic cancer Father Additional Family Medical History / Comment(s): Pt states father during WWII when pt was 6 yrs old. Medications and Allergies Home Medications Medication Instructions Recorded Confirmed Type Aspirin EC [Ecotrin Low Dose] 81 mg PO HS 06/18/20 10/02/20 History Cholecalciferol [Vitamin D3 (25 5,000 unit PO HS 06/18/20 10/02/20 History Mcg = 1000 Iu)] Lisinopril [Zestril] 10 mg PO DAILY 06/18/20 10/02/20 History Simvastatin [Zocor] 20 mg PO HS 06/18/20 10/02/20 History metFORMIN HCL ER [Glucophage Xr] 1,000 mg PO BID 06/18/20 10/02/20 History Ondansetron HCl [Zofran] 4 mg PO Q6HR PRN 07/24/20 10/02/20 History Fluconazole [Diflucan] 100 mg PO DAILY #30 tab 09/19/20 10/02/20 Rx Mirtazapine [Remeron] 15 mg PO HS 10/02/20 10/02/20 History Omeprazole 20 mg PO DAILY 10/02/20 10/02/20 History Allergies Allergy/AdvReac Type Severity Reaction Status Date / Time No Known Allergies Allergy Verified 10/02/20 11:27 Physical Exam Vitals: Vital Signs Temp Pulse Pulse Resp BP Pulse Ox 10/03/20 19:21 18 10/03/20 19:03 90 10/03/20 18:51 90 10/03/20 16:09 92 10/03/20 15:54 92 10/03/20 12:27 97.6 F 96 17 154/68 94 L 10/03/20 09:02 88 10/03/20 08:50 88 10/03/20 05:34 98.5 F 96 20 159/71 94 L 10/03/20 00:00 94 16 10/02/20 23:45 70 16 10/02/20 23:35 68 16 Intake and Output 10/03/20 10/03/20 10/03/20 06:59 14:59 22:59 Intake Total 590 Output Total 400 Balance 190 Intake: Oral 590 Output: Urine 400 Other: Voiding Method Urinal # Voids 1 Weight 55.338 kg - Constitutional General appearance: average body habitus, cooperative, no acute distress - EENT Eyes: anicteric sclerae, EOMI ENT: normal oropharynx - Neck Neck: no lymphadenopathy - Respiratory Respiratory: bilateral: rales - Cardiovascular Heart sounds: normal: S1, S2 leg Peripheral Edema: bilateral: None - Gastrointestinal General gastrointestinal: no absent bowel sounds, no decreased bowel sounds, no distended, no hepatomegaly, no hyperactive bowel sounds, normal bowel sounds, no organomegaly, no rigid, no scaphoid, soft, no splenomegaly, no tenderness, no umbilical hernia, no ventral hernia - Neurologic Neurologic: CNII-XII intact - Musculoskeletal Musculoskeletal: generalized weakness - Psychiatric Psychiatric: A&O x's 3, appropriate affect, intact judgment & insight Results CBC & Chem 7: 10/03/20 06:20 10/03/20 06:20 Labs: Abnormal Lab Results - Last 24 Hours (Table) 10/02/20 10/02/20 10/03/20 Range/Units 11:29 11:39 06:20 WBC 76.4 H* (3.8-10.6) k/uL RBC 3.19 L (4.30-5.90) m/uL Hgb 9.3 L (13.0-17.5) gm/dL Hct 30.4 L (39.0-53.0) % MCHC 30.5 L (31.0-37.0) g/dL RDW 19.1 H (11.5-15.5) % Neutrophils # 75.3 H (1.3-7.7) k/uL Lymphocytes # 0.1 L (1.0-4.8) k/uL Sodium (135-145) mmol/L BUN (9.0-27.0) mg/dL BUN/Creatinine Ratio (12.00-20.00) Ratio Glucose (70-110) mg/dL POC Glucose (mg/dL) (75-99) mg/dL Hemoglobin A1c 7.4 H (4.0-6.0) % Calcium (8.7-10.3) mg/dL Total Protein (6.2-8.2) g/dL Albumin (3.80-4.90) g/dL Albumin/Globulin Ratio (1.60-3.17) g/dL Procalcitonin 0.49 H (0.02-0.09) ng/mL 10/03/20 10/03/20 10/03/20 Range/Units 06:20 07:36 11:49 WBC (3.8-10.6) k/uL RBC (4.30-5.90) m/uL Hgb (13.0-17.5) gm/dL Hct (39.0-53.0) % MCHC (31.0-37.0) g/dL RDW (11.5-15.5) % Neutrophils # (1.3-7.7) k/uL Lymphocytes # (1.0-4.8) k/uL Sodium 134 L (135-145) mmol/L BUN 29.0 H (9.0-27.0) mg/dL BUN/Creatinine Ratio 29.00 H (12.00-20.00) Ratio Glucose 267 H (70-110) mg/dL POC Glucose (mg/dL) 249 H 208 H (75-99) mg/dL Hemoglobin A1c (4.0-6.0) % Calcium 11.4 H (8.7-10.3) mg/dL Total Protein 5.2 L (6.2-8.2) g/dL Albumin 2.90 L (3.80-4.90) g/dL Albumin/Globulin Ratio 1.26 L (1.60-3.17) g/dL Procalcitonin (0.02-0.09) ng/mL 10/03/20 10/03/20 Range/Units 18:20 20:22 WBC (3.8-10.6) k/uL RBC (4.30-5.90) m/uL Hgb (13.0-17.5) gm/dL Hct (39.0-53.0) % MCHC (31.0-37.0) g/dL RDW (11.5-15.5) % Neutrophils # (1.3-7.7) k/uL Lymphocytes # (1.0-4.8) k/uL Sodium (135-145) mmol/L BUN (9.0-27.0) mg/dL BUN/Creatinine Ratio (12.00-20.00) Ratio Glucose (70-110) mg/dL POC Glucose (mg/dL) 245 H 214 H (75-99) mg/dL Hemoglobin A1c (4.0-6.0) % Calcium (8.7-10.3) mg/dL Total Protein (6.2-8.2) g/dL Albumin (3.80-4.90) g/dL Albumin/Globulin Ratio (1.60-3.17) g/dL Procalcitonin (0.02-0.09) ng/mL Microbiology - Last 24 Hours (Table) 10/02/20 11:39 Blood Culture - Preliminary Blood No Growth after [address] scan - chest: report reviewed, image reviewed Assessment and Plan (1) Abnormal CT scan of lung Narrative/Plan: Images were reviewed with Rad Onc. Rad Onc reviewed images with Radiologist. [place] that acute infection is most likely cause. Agree with abx and steroids at this time. . Current Visit: Yes Status: Acute Priority: High Code(s): R91.8 - OTHER NONSPECIFIC ABNORMAL FINDING OF LUNG FIELD SNOMED Code(s): 965218315 (2) Non-small cell carcinoma of lung, left Narrative/Plan: Completed chemo/XRT 08/30. Due for re-staging scan Current Visit: Yes Status: Chronic Priority: High Code(s): C34.92 - MALIGNANT NEOPLASM OF UNSP PART OF LEFT BRONCHUS OR LUNG SNOMED Code(s): 316292522 (3) Hypercalcemia Narrative/Plan: Hypercalcemia-suspect r/t dehydration, recheck in AM after hydration Current Visit: Yes Status: Acute Code(s): E83.52 - HYPERCALCEMIA SNOMED Code(s): 36920950 (4) Leukocytosis Narrative/Plan: Labs reviewed-leukocytosis with elevated ANC-likely r/t infection. Current Visit: Yes Status: Acute Priority: Medium Code(s): D72.829 - ELEVATED WHITE BLOOD CELL COUNT, UNSPECIFIED SNOMED Code(s): 879756392
--- NOTE | 2020-10-04 00:36 | PN ---
PROGRESS NOTE DATE OF SERVICE: 10/03/2020 REASON FOR FOLLOWUP: Pneumonia. INTERVAL HISTORY: Patient is currently afebrile. The patient is breathing comfortably compared to yesterday. The patient denies any chest pain. He did have a cough with occasional sputum. No nausea, no vomiting. No abdominal pain. No diarrhea. PHYSICAL EXAMINATION: Blood pressure 154/68 with a pulse of 96, temperature 97.6. He is 94% on 6 L nasal cannula. General description is an elderly male lying in bed in no distress. Respiratory system: Unlabored breathing, some coarse breath sounds at bases. No wheeze. Heart S1, S2. Regular rate and rhythm. ABDOMEN: Soft, no tenderness. LABS: Hemoglobin 9.8, white count 6.4. BUN of 29, creatinine 1.0. Blood culture so far negative. Sputum was requested and not collected. DIAGNOSTIC IMPRESSION AND PLAN: Patient with acute respiratory distress and concern for possible pneumonia versus lymphangitic metastatic disease. The patient is currently covered with cefepime, vancomycin to continue while waiting for condition to stabilize. Continue supportive care. MMODL / IJN: [id number] /
[2020-10-04] MEDS: IPRATROPIUM-ALBUTEROL 3 ML NEB INHALATION SCH ×5 (03:12→19:29)
[2020-10-04] MEDS: VANCOMYCIN 1,000 MG in SODIUM CHLORIDE 0.9% 250 ML IVPB SCH ×2 (03:14→17:01)
[2020-10-04] MEDS: methylPREDNISolone SOD SUCCI 125 MG/2 ML VIAL IV SCH ×3 (05:36→17:01)
[2020-10-04 06:54] LABS: Glucose,Whole Blood 206 mg/dL (75-99)
[2020-10-04 06:56] LABS: Anisocytosis Slight; Basophils # (A) 0.1 k/uL (0-0.2); Basophils % (A) 0 %; Eosinophils # (A) 0.2 k/uL (0-0.7); Eosinophils % (A) 0 %; HCT 30.4 % (39.0-53.0); Hypochromasia Marked; Lymphocytes # (A) 0.2 k/uL (1.0-4.8); Lymphocytes % (A) 0 %; MCH 28.5 pg (25.0-35.0); MCHC 29.6 g/dL (31.0-37.0); MCV 96.1 fL (80.0-100.0); Macrocytosis Slight; Mean Platelet Volume 8.8; Monocytes # (A) 0.8 k/uL (0-1.0); Monocytes % (A) 1 %; Neutrophils % (A) 98 %; Platelet Count 308 k/uL (150-450); RBC 3.16 m/uL (4.30-5.90); RDW 19.5 % (11.5-15.5)
[2020-10-04 07:03] LABS: WBC 87.4 k/uL (3.8-10.6)
[2020-10-04] MEDS: INSULIN ASPART (NovoLOG) 100 UNIT/ML VIAL SQ SCH ×4 (07:26→21:24)
--- NOTE | 2020-10-04 07:29 | XR ---
EXAMINATION TYPE: XR chest 1V portable DATE OF EXAM: 10/04/2020 HISTORY: Shortness of breath. COMPARISON: 10/02/2020 TECHNIQUE: Single view of the chest is submitted. FINDINGS: Demonstrated are scattered senescent parenchymal change. Diffuse reticulonodular infiltrates with more focal component right medial lung base persist. Mild in terval progression is suggested. The heart is stable. Hilar and mediastinal structures are within normal limits. Degenerative changes are seen of the dorsal spine. IMPRESSION: 1. Diffuse reticulonodular infiltrates with more focal component right medial lung base persist. Mil d interval progression is suggested.
[2020-10-04] MEDS: LACTATED RINGERS 1,000 ML IV SCH ×2 (08:36→17:27)
[2020-10-04] MEDS: ENOXAPARIN 40 MG/0.4 ML SYRINGE SQ SCH (08:37)
[2020-10-04] MEDS: guaiFENesin 600 MG TABLET.ER PO SCH ×2 (08:37→19:46)
[2020-10-04] MEDS: CEFEPIME 2 GM in SODIUM CHLORIDE 0.9% 100 ML IVPB SCH ×2 (08:37→19:45)
[2020-10-04] MEDS: PANTOPRAZOLE 40 MG TABLET PO SCH (08:37)
[2020-10-04] MEDS: lisinopriL 10 MG TAB PO SCH (08:38)
[2020-10-04] MEDS: FLUCONAZOLE 100 MG TAB PO SCH (08:38)
[2020-10-04] MEDS: metFORMIN 500 MG TAB PO SCH ×2 (08:38→19:46)
[2020-10-04] MEDS: FORMOTEROL FUMARATE 20 MCG/2 ML NEBU INHALATION SCH ×2 (09:41→19:28)
[2020-10-04] MEDS: BUDESONIDE 1 MG/2 ML NEBU INHALATION SCH ×2 (09:41→19:28)
[2020-10-04 09:58] LABS: African American GFR (CKD) 83.2 (60.0-200.0); Albumin/Globulin Ratio 1.36 (1.60-3.17); Anion Gap 12.4 mmol/L (4.00-12.00); C Reactive Protein 6.4 mg/dL (0.0-0.8); Calcium 11.1 mg/dL (8.7-10.3); Carbon Dioxide 25.6 mmol/L (21.6-31.8); Ferritin 739.5 ng/mL (22.0-322.0); Globulin 2.2 g/dL (1.6-3.3); Non-African American GFR(CKD) 71.8 (60.0-200.0); Potassium 4.4 mmol/L (3.5-5.5); Total Bilirubin 0.3 mg/dL (0.3-1.2); Total Protein 5.2 g/dL (6.2-8.2)
[2020-10-04 11:25] LABS: Glucose,Whole Blood 154 mg/dL (75-99)
--- NOTE | 2020-10-04 16:16 | P.PN ---
Subjective Progress Note Date: 10/04/20 Principal diagnosis: Acute hypoxic respiratory failure secondary to suspected underlying pneumonia in a patient with a history of non-small cell lung cancer with possible progression This is a 72-year-old white male patient with history of diagnosis of non-small cell lung cancer who was started on chemotherapy and radiation. Patient follows with Dr. Garcia and Dr. Velazquez from the Coumadin is [facility]. He states he had finished his chemotherapy on 09/04/2020. He had a recent hospitalization from 09/16/2020 through 09/19/2020 when he came in with the signs of severe dehydration, loss of appetite, following his chemotherapy. Patient also had acute kidney injury, leukocytosis. He was checked for COVID 19 and influenza which were negative. He was hydrated, he was treated with antibiotics, for possibility of pneumonia, currently improved, he was discharged home on the course of Augmentin. Patient came back to the emergency department on 10/02/2020 with complaints of worsening shortness of breath, weakness, loss of appetite, and patient has not been able to take in much in the way of oral intake. Denies any fever or chills, he states he is bringing up some heavy phlegm, denies any chest pain, he has a weak but congested cough. He was started on empiric AmBisome the form of cefepime and vancomycin, he was tested for COVID 19 and was found to be negative. His chest x-ray showed a worsening diffuse bilateral reticulonodular infiltrates and/or edema with possibility of atypical infection, and possible adverse reactive changes to the treatment for lung cancer. He is not normally on oxygen, right now he is wearing 6 L of oxygen pulse ox of 95%, he has been afebrile, his blood work revealed leukocytosis, with white blood cell, 71.4, hemoglobin of 9.8, his INR was 1.2, sodium was 128, potassium is 5.2, chloride was 95, CO2 is 21, B1 is 27 cr eatinine 0.93, and plasma lactic acid of 4.3, improved with IV rehydration, however still remains elevated. ID service was consulted, and we were consulted for pulmonary evaluation. On 10/03/2020 patient seen in follow-up on medical surgical floor, he is awake and alert, remains on 6 L of oxygen pulse ox of 94%, he states he still about the same, still very pale and weak, but denies any shortness of breath, no cough, no fever or chills, denies any chest pain, no back pain. His been afebrile, today's labs have been reviewed, showing white blood cell, still significantly elevated at 76.4, hemoglobin is 9.3, sodium is 134, potassium is 5.0, BUN of 29, creatinine is 1, calcium is 11.4, AST is 18, ALT 17, alkaline phosphatase within normal limits at 103 patient was rehydrated, creatinine flu ids at 20 ML per hour, remains on IV Solu-Medrol 60 every 6 hours and antibiotics in the form of cefepime, Diflucan, and vancomycin. COVID 19 was not detected, his Legionella urine antigen was negative, pro-calcitonin level came back elevated at 0.49. Medical oncology has been consulted, radiation oncology has been consulted,ID service consulted The patient is seen today 10/04/2020 in follow-up on the regular medical floor. He remains awake and alert in no acute distress. Currently maintaining O2 saturations in the 90s on 6 L/m per nasal cannula. Currently afebrile. Blood culture reveals no growth. White count 87.4. Hemoglobin 9.0. Lymphocytes 0.2. D-dimer 2.19. Sodium 138. Potassium 4.4. Creatinine 1.0. Ferritin 739. LDH 411. C-reactive protein 6.4. He remains on IV Solu-Medrol, bronchodilators, Lovenox, antibiotics in the form of cefepime and vancomycin. Chest x-ray reveals diffuse reticular nodule infiltrates with more focal component of right medial lung base. Mild interval progression. Objective - Vital Signs Vital signs: Vital Signs Temp 97.1 F L 10/04/20 14:56 Pulse 101 H 10/04/20 14:56 Resp 16 10/04/20 08:00 BP 131/73 10/04/20 14:56 Pulse Ox 96 10/04/20 14:56 Intake & Output 10/03/20 10/04/20 10/04/20 18:59 06:59 18:59 Intake Total 2250 Output Total 400 Balance 2250 -400 Weight 55.338 kg Intake: Intake, IV Titration 1850 Amount Cefepime 2 gm In Sodium 100 Chloride 0.9% 100 ml @ 25 mls/hr IVPB Q12HR [facility] Rx #:[id number] Lactated Ringers 1,000 ml 1500 @ 125 mls/hr IV .Q8H [facility] Rx#:[id number] Vancomycin 1,000 mg In 250 Sodium Chloride 0.9% 250 ml @ 125 mls/hr IVPB Q16H [facility] Rx#:[id number] Oral 400 Output: Urine 400 Other: Voiding Method Urinal # Voids 2 2 - Exam GENERAL EXAM: Alert, 80-year-old male patient, appears chronically ill, pale, on 6 L of oxygen a pulse ox of 96%, resting comfortably in bed appears weak, comfortable in no apparent distress. HEAD: Normocephalic/atraumatic. EYES: Normal reaction of pupils, equal size. Conjunctiva pink, sclera white. NOSE: Clear with pink turbinates. THROAT: No erythema or exudates. NECK: No masses, no JVD, no thyroid enlargement, no adenopathy. CHEST: No chest wall deformity. Symmetrical expansion. LUNGS: Equal air entry with scattered rhonchi more so on the right lung CVS: Regular rate and rhythm, normal S1 and S2, no gallops, no murmurs, no rubs ABDOMEN: Soft, nontender. No hepatosplenomegaly, normal bowel sounds, no guarding or rigidity. EXTREMITIES: No clubbing, no edema, no cyanosis, 2+ pulses and upper and lower extremities. MUSCULOSKELETAL: Muscle strength and tone normal. SPINE: No scoliosis or deformity SKIN: No rashes CENTRAL NERVOUS SYSTEM: Alert and oriented -3. No focal deficits, tone is n ormal in all 4 extremities. PSYCHIATRIC: Alert and oriented -3. Appropriate affect. Intact judgment and insight. - Labs CBC & Chem 7: 10/04/20 05:28 10/04/20 05:28 Labs: Abnormal Lab Results - Last 24 Hours (Table) 10/03/20 10/03/20 10/04/20 Range/Units 18:20 20:22 05:28 WBC (3.8-10.6) k/uL RBC (4.30-5.90) m/uL Hgb (13.0-17.5) gm/dL Hct (39.0-53.0) % MCHC (31.0-37.0) g/dL RDW (11.5-15.5) % Neutrophils # (1.3-7.7) k/uL Lymphocytes # (1.0-4.8) k/uL D-Dimer (<0.60) mg/L FEU Anion Gap 12.40 H (4.00-12.00) mmol/L BUN 34.0 H (9.0-27.0) mg/dL BUN/Creatinine Ratio 34.00 H (12.00-20.00) Ratio Glucose 167 H (70-110) mg/dL POC Glucose (mg/dL) 245 H 214 H (75-99) mg/dL Calcium 11.1 H (8.7-10.3) mg/dL Ferritin 739.5 H (22.0-322.0) ng/mL Alkaline Phosphatase 136 H (41-126) U/L Lactate Dehydrogenase 411 H (120-246) U/L C-Reactive Protein 6.4 H (0.0-0.8) mg/dL Total Protein 5.2 L (6.2-8.2) g/dL Albumin 3.00 L (3.80-4.90) g/dL Albumin/Globulin Ratio 1.36 L (1.60-3.17) g/dL 10/04/20 10/04/20 10/04/20 Range/Units 05:28 05:28 06:52 WBC 87.4 H* (3.8-10.6) k/uL RBC 3.16 L (4.30-5.90) m/uL Hgb 9.0 L (13.0-17.5) gm/dL Hct 30.4 L (39.0-53.0) % MCHC 29.6 L (31.0-37.0) g/dL RDW 19.5 H (11.5-15.5) % Neutrophils # 86.0 H (1.3-7.7) k/uL Lymphocytes # 0.2 L (1.0-4.8) k/uL D-Dimer 2.19 H (<0.60) mg/L FEU Anion Gap (4.00-12.00) mmol/L BUN (9.0-27.0) mg/dL BUN/Creatinine Ratio (12.00-20.00) Ratio Glucose (70-110) mg/dL POC Glucose (mg/dL) 206 H (75-99) mg/dL Calcium (8.7-10.3) mg/dL Ferritin (22.0-322.0) ng/mL Alkaline Phosphatase (41-126) U/L Lactate Dehydrogenase (120-246) U/L C-Reactive Protein (0.0-0.8) mg/dL Total Protein (6.2-8.2) g/dL Albumin (3.80-4.90) g/dL Albumin/Globulin Ratio (1.60-3.17) g/dL 10/04/20 Range/Units 11:24 WBC (3.8-10.6) k/uL RBC (4.30-5.90) m/uL Hgb (13.0-17.5) gm/dL Hct (39.0-53.0) % MCHC (31.0-37.0) g/dL RDW (11.5-15.5) % Neutrophils # (1.3-7.7) k/uL Lymphocytes # (1.0-4.8) k/uL D-Dimer (<0.60) mg/L FEU Anion Gap (4.00-12.00) mmol/L BUN (9.0-27.0) mg/dL BUN/Creatinine Ratio (12.00-20.00) Ratio Glucose (70-110) mg/dL POC Glucose (mg/dL) 154 H (75-99) mg/dL Calcium (8.7-10.3) mg/dL Ferritin (22.0-322.0) ng/mL Alkaline Phosphatase (41-126) U/L Lactate Dehydrogenase (120-246) U/L C-Reactive Protein (0.0-0.8) mg/dL Total Protein (6.2-8.2) g/dL Albumin (3.80-4.90) g/dL Albumin/Globulin Ratio (1.60-3.17) g/dL Microbiology - Last 24 Hours (Table) 10/02/20 11:39 Blood Culture - Preliminary Blood No Growth after 48 hours Assessment and Plan Assessment: #1. Acute hypoxic respiratory failure with the possibility of underlying pneumonia, healthcare acquired, an immunocompromised host, and there is a possibility of non-small cell lung cancer progression with appearance of lymphangitic carcinomatosis, on the appearance of the chest x-ray that showed worsening diffuse bilateral reticulonodular infiltrates. High resolution CT was obtained showing extensive reticular nodular infiltrates throughout the lungs with pleural effusions consistent with inflammatory disease or rapidly progressing lymphangitic metastatic disease. There is a 4 x 2 cm left-sided paraspinal infiltrate in the mid thoracic spine with possibility of skeletal metastasis #2. Non-small cell lung cancer diagnosed in June 2020, poorly differentiated, diagnosed via CT-guided biopsy on 06/19/2020 status post concurrent chemoradiation with weekly carboplatin and Taxol as a chemotherapy arm, and patient states he completed treatment on 09/04/2020 #3. Recent hospitalization for dehydration, acute kidney injury and weakness and possibility of pneumonia, 09/16/2020 through 09/19/2020 discharged home on oral antibiotics #4. 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 Hyponatremia related to hypovolemia #6. Weakness, dehydration, poor oral intake #7. Significant leukocytosis #8. Lactic acidosis, improving with IV hydration still remains significantly elevated, with possibility of sepsis #9. Diabetes mellitus type 2 #10. Former smoker Plan: The patient was seen and evaluated by Dr. Alvarez Chest x-ray and labs reviewed Continue current treatment plan For bronchoscopy with BAL and possible biopsies in the a.m. The patient is agreeable Nothing by mouth after midnight We will continue to follow I, the cosigning physician, performed a history & physical examination of the patient. Lungs sounds with few scattered rhonchi more so on the right lung. Maintaining good O2 saturations in the 90s on 6 L/m per nasal cannula. I discussed the assessment and plan of care with my nurse practitioner, Daly Corey. I attest to the above note as dictated by her.
[2020-10-04 16:38] LABS: Glucose,Whole Blood 254 mg/dL (75-99)
[2020-10-04] MEDS ORDERED: VANCOMYCIN TROUGH DUE 1 EACH MISC MISCELLANE ONE (17:00)
[2020-10-04] MEDS: MIRTAZAPINE 15 MG TAB PO SCH (19:46)
[2020-10-04] MEDS: CHOLECALCIFEROL 1,000 UNIT TAB PO SCH (19:46)
[2020-10-04] MEDS: ASPIRIN 81 MG PO SCH (19:46)
[2020-10-04] MEDS: ATORVASTATIN 10 MG TAB PO SCH (19:46)
[2020-10-04 20:44] LABS: Glucose,Whole Blood 98 mg/dL (75-99)
--- NOTE | 2020-10-04 23:54 | PN ---
PROGRESS NOTE DATE OF SERVICE: 10/04/2020 This 80-year-old gentleman who was admitted with acute bilateral interstitial pneumonia with COPD acute exacerbation also had possibly gram-negative features and sepsis also. Dr. Alvarez and Dr. Santiago are following the patient closely. The most recent chest x- ray which was done today showed bilateral lesions, which most likely seem to be interstitial shadows. The patient is still short of breath. The patient is being closely monitored at this time. Dr. Alvarez has recommended , metastatic disease with lymphangitic spread was also considered as a possibility. Bronchoscopy and BAL are planned in the morning by the Pulmonary team. PAST MEDICAL HISTORY: Reviewed. REVIEW OF SYSTEMS: CARDIOVASCULAR SYSTEM: No angina. RESPIRATORY SYSTEM: As mentioned earlier. GI: As mentioned earlier. : No dysuria or urinary retention. NERVOUS SYSTEM: No numbness or weakness. CURRENT MEDICATIONS: Current medications are reviewed and include: Tylenol, DuoNeb, aspirin, Lipitor, Pulmicort, cefepime, Lovenox, Diflucan, Zestril, Glucophage, Solu-Medrol, Zofran, Protonix. PHYSICAL EXAMINATION: Patient is alert and oriented x3. Pulse is 101, blood pressure 131/73, respiration 20, temperature 97.1, pulse ox 96% on 6 L. HEENT: Conjunctivae normal. NECK: No jugular venous distention. CARDIOVASCULAR: S1, S2 muffled. RESPIRATORY: Breath sounds diminished at the bases. Bilateral scattered rhonchi and crackles. ABDOMEN: Soft, nontender. LEGS: No edema, no swelling. NERVOUS SYSTEM: No focal deficits. LABS: WBC 87.4, hemoglobin is 9. Otherwise, anion gap is 12 and glucose 164. Ferritin is 735. C-reactive protein is 6.4, LDH is 411. Albumin is 3. Vancomycin is 17.4. So far the cultures are negative. ASSESSMENT: 1. Acute bilateral interstitial pneumonia with chronic obstructive pulmonary disease acute exacerbation, possibly gram-negative with sepsis, present on admission. 2. COVID-19 Test negative. 3. Possible lymphangitic spread of non-small cell lung cancer. 4. Hyponatremia. 5. Hyperkalemia. 6. Increased WBC. 7. Anemia, normocytic anemia of malignancy. 8. Possible metastatic lung cancer. 9. Hypomagnesemia. 10.Elevated LDH, CRP, D-dimer. 11.History of diabetes mellitus type 2. 12.Hypertension. 13.Remote history of nicotine dependence. 14.Severe protein calorie malnutrition with body mass index of 18.5. 15.FULL CODE. RECOMMENDATIONS AND DISCUSSION: In this 80-year-old gentleman who presented with multiple complex medical issues. Dr. Alvarez is planning BAL for further studies which will be useful in detecting the cause of the current disease otherwise inflammatory markers improving at this time. Continue the empiric antibiotic treatment. The prognosis is extremely guarded because of multiple complex medical issues. Further recommendations to follow. Urine Legionella was also negative also at this time. I would also order mycoplasma antibody as well. MMODL / IJN: [id number] / ROBERT
[2020-10-05] MEDS: IPRATROPIUM-ALBUTEROL 3 ML NEB INHALATION SCH ×7 (02:25→23:10)
[2020-10-05] MEDS: methylPREDNISolone SOD SUCCI 125 MG/2 ML VIAL IV SCH ×4 (02:31→17:28)
[2020-10-05] MEDS: LACTATED RINGERS 1,000 ML IV SCH ×3 (02:32→15:46)
--- NOTE | 2020-10-05 06:40 | PN ---
PROGRESS NOTE DATE OF SERVICE: 10/04/2020 REASON FOR FOLLOWUP: Pneumonia. INTERVAL HISTORY: The patient is currently afebrile. The patient is breathing comfortably. The patient denies having any chest pain or shortness of breath. Minimal cough. No nausea, no vomiting. No abdominal pain or diarrhea. PHYSICAL EXAMINATION: Blood pressure 131/61 with pulse of 107, temperature 97.9. He is 94% on 5 L nasal cannula. General description is an elderly male lying in bed in no distress. RESPIRATORY SYSTEM: Unlabored breathing, decreased breath sounds at the bases. No wheeze. HEART: S1, S2. Regular rate and rhythm. ABDOMEN: Soft, no tenderness. LABS: Hemoglobin 9, white count 87.4, BUN of 34, creatinine 1.0. Vancomycin trough elevated. Urine for Legionella antigen came back negative. DIAGNOSTIC IMPRESSION AND PLAN: Patient admitted to the hospital with increasing shortness of breath and cough with concern for pneumonia versus lymphangitic spread. Patient seemed to have clinically responded to steroids, cefepime and vancomycin. Will try to obtain a sputum to narrow down his antibiotics. Continue with supportive care. MMODL / IJN: [id number] /
[2020-10-05 07:14] LABS: Glucose,Whole Blood 241 mg/dL (75-99)
[2020-10-05 07:20] LABS: Anisocytosis Slight; HCT 28.4 % (39.0-53.0); HGB 8.8 gm/dL (13.0-17.5); Hypochromasia Marked; MCH 29.6 pg (25.0-35.0); MCHC 31.1 g/dL (31.0-37.0); MCV 95.3 fL (80.0-100.0); Macrocytosis Slight; Mean Platelet Volume 8.4; Platelet Count 303 k/uL (150-450); RBC 2.98 m/uL (4.30-5.90); RDW 19.3 % (11.5-15.5)
[2020-10-05] MEDS: CEFEPIME 2 GM in SODIUM CHLORIDE 0.9% 100 ML IVPB SCH ×2 (07:40→21:01)
[2020-10-05] MEDS: INSULIN ASPART (NovoLOG) 100 UNIT/ML VIAL SQ SCH ×4 (07:40→21:02)
[2020-10-05] MEDS: PANTOPRAZOLE 40 MG TABLET PO SCH (08:28)
[2020-10-05] MEDS: FLUCONAZOLE 100 MG TAB PO SCH (08:28)
[2020-10-05] MEDS: guaiFENesin 600 MG TABLET.ER PO SCH ×2 (08:28→21:01)
[2020-10-05 08:44] LABS: Band Neutrophils % 1 %; Lymphocytes # (M) 0.88 k/uL (1.0-4.8); Monocytes # (M) 0.88 k/uL (0-1.0); Neutrophils % (M) 97 %; Nucleated Red Blood Cells 0 /100 WBC (0-0); Total Cells Counted 200
[2020-10-05] MEDS: FORMOTEROL FUMARATE 20 MCG/2 ML NEBU INHALATION SCH ×2 (08:58→19:44)
[2020-10-05] MEDS: BUDESONIDE 1 MG/2 ML NEBU INHALATION SCH ×2 (08:58→19:44)
[2020-10-05] MEDS ORDERED: VANCOMYCIN TROUGH DUE 1 EACH MISC MISCELLANE ONE (09:00)
[2020-10-05 09:30] LABS: African American GFR (CKD) 66.7 (60.0-200.0); Albumin 2.9 g/dL (3.80-4.90); Albumin/Globulin Ratio 1.38 (1.60-3.17); Anion Gap 14.3 mmol/L (4.00-12.00); C Reactive Protein 3.4 mg/dL (0.0-0.8); Calcium 11.4 mg/dL (8.7-10.3); Carbon Dioxide 23.7 mmol/L (21.6-31.8); Ferritin 621.1 ng/mL (22.0-322.0); Globulin 2.1 g/dL (1.6-3.3); Non-African American GFR(CKD) 57.6 (60.0-200.0); Potassium 4.3 mmol/L (3.5-5.5); Total Bilirubin 0.3 mg/dL (0.3-1.2)
[2020-10-05] MEDS: VANCOMYCIN 1,000 MG in SODIUM CHLORIDE 0.9% 250 ML IVPB SCH (11:21)
[2020-10-05] MEDS: lisinopriL 10 MG TAB PO SCH (11:22)
[2020-10-05] MEDS: metFORMIN 500 MG TAB PO SCH ×2 (11:22→21:01)
[2020-10-05 11:37] LABS: Glucose,Whole Blood 164 mg/dL (75-99)
[2020-10-05] MEDS ORDERED: LIDOCAINE 1% INJ 10MG/ML (20 ML MDV) ONE (13:42)
[2020-10-05] MEDS ORDERED: SUCCINYLCHOLINE CHLORIDE 100 MG/5 ML SYR IV ONE (13:42)
[2020-10-05] MEDS ORDERED: PROPOFOL 10 MG/ML 20 ML VIAL IV ONE (13:42)
[2020-10-05] MEDS ORDERED: IV FLUID CONTINUATION 1,000 ML IV ONE ×2 (13:47)
--- NOTE | 2020-10-05 14:40 | FL ---
Fluoroscopy INDICATION: Pain FINDINGS: Fluoroscopy time: 8 seconds. Images obtained: 1. IMPRESSIONS: 1. Documentation of fluoroscopy.
--- NOTE | 2020-10-05 15:10 | XR ---
EXAMINATION TYPE: XR chest 1V portable DATE OF EXAM: 10/05/2020 COMPARISON: 10/04/2020 INDICATION: Post right lung bronchoscopy and biopsy TECHNIQUE: Single frontal view of the chest is obtained. FINDINGS: The heart size is normal. The pulmonary vasculature is normal. There are diffuse increased lung markings bilaterally. This appears somewhat nodular. This may be mor e focal in the right lower lobe medially. There may be some improvement of peripheral left lower lobe infiltrate. IMPRESSION: 1. Diffuse increased lung markings. No pneumothorax is evident post biopsy.
--- NOTE | 2020-10-05 15:37 | P.PN ---
Subjective Progress Note Date: 10/05/20 Principal diagnosis: Acute hypoxic respiratory failure secondary to suspected underlying pneumonia in a patient with a history of non-small cell lung cancer with possible progression This is a 72-year-old white male patient with history of diagnosis of non-small cell lung cancer who was started on chemotherapy and radiation. Patient follows with Dr. Garcia and Dr. Velazquez from the Coumadin is Maurokyree Cain. He states he had finished his chemotherapy on 09/04/2020. He had a recent hospitalization from 09/16/2020 through 09/19/2020 when he came in with the signs of severe dehydration, loss of appetite, following his chemotherapy. Patient also had acute kidney injury, leukocytosis. He was checked for COVID 19 and influenza which were negative. He was hydrated, he was treated with antibiotics, for possibility of pneumonia, currently improved, he was discharged home on the course of Augmentin. Patient came back to the emergency department on 10/02/2020 with complaints of worsening shortness of breath, weakness, loss of appetite, and patient has not been able to take in much in the way of oral intake. Denies any fever or chills, he states he is bringing up some heavy phlegm, denies any chest pain, he has a weak but congested cough. He was started on empiric AmBisome the form of cefepime and vancomycin, he was tested for COVID 19 and was found to be negative. His chest x-ray showed a worsening diffuse bilateral reticulonodular infiltrates and/or edema with possibility of atypical infection, and possible adverse reactive changes to the treatment for lung cancer. He is not normally on oxygen, right now he is wearing 6 L of oxygen pulse ox of 95%, he has been afebrile, his blood work revealed leukocytosis, with white blood cell, 71.4, hemoglobin of 9.8, his INR was 1.2, sodium was 128, potassium is 5.2, chloride was 95, CO2 is 21, B1 is 27 cr eatinine 0.93, and plasma lactic acid of 4.3, improved with IV rehydration, however still remains elevated. ID service was consulted, and we were consulted for pulmonary evaluation. On 10/03/2020 patient seen in follow-up on medical surgical floor, he is awake and alert, remains on 6 L of oxygen pulse ox of 94%, he states he still about the same, still very pale and weak, but denies any shortness of breath, no cough, no fever or chills, denies any chest pain, no back pain. His been afebrile, today's labs have been reviewed, showing white blood cell, still significantly elevated at 76.4, hemoglobin is 9.3, sodium is 134, potassium is 5.0, BUN of 29, creatinine is 1, calcium is 11.4, AST is 18, ALT 17, alkaline phosphatase within normal limits at 103 patient was rehydrated, creatinine flu ids at 20 ML per hour, remains on IV Solu-Medrol 60 every 6 hours and antibiotics in the form of cefepime, Diflucan, and vancomycin. COVID 19 was not detected, his Legionella urine antigen was negative, pro-calcitonin level came back elevated at 0.49. Medical oncology has been consulted, radiation oncology has been consulted,ID service consulted The patient is seen today 10/04/2020 in follow-up on the regular medical floor. He remains awake and alert in no acute distress. Currently maintaining O2 saturations in the 90s on 6 L/m per nasal cannula. Currently afebrile. Blood culture reveals no growth. White count 87.4. Hemoglobin 9.0. Lymphocytes 0.2. D-dimer 2.19. Sodium 138. Potassium 4.4. Creatinine 1.0. Ferritin 739. LDH 411. C-reactive protein 6.4. He remains on IV Solu-Medrol, bronchodilators, Lovenox, antibiotics in the form of cefepime and vancomycin. Chest x-ray reveals diffuse reticular nodule infiltrates with more focal component of right medial lung base. Mild interval progression. Patient is seen today 10/05/2020 in follow-up on the regular medical floor. He is currently resting fairly comfortably in bed. Awake and alert in no acute distress. Continue O2 saturations in the 90s on 5 L high flow nasal cannula. Afebrile. He was dynamically stable. White count 88,000. Hemoglobin 8.8. Platelets 303. Neutrophils 86. D-dimer 2.40. Sodium 140. Potassium 4.3. Creatinine 1.2. Plan is for bronchoscopy with biopsies today. Objective - Vital Signs Vital signs: Vital Signs Temp 97.3 F L 10/05/20 05:32 Pulse 91 11/27/20 08:00 Resp 20 10/05/20 08:00 BP 129/65 10/05/20 05:32 Pulse Ox 92 L 10/05/20 05:32 Intake & Output 10/04/20 10/05/20 10/05/20 18:59 06:59 18:59 Intake Total 1300 200 Output Total 400 Balance -400 1300 200 Weight 55.338 kg Intake: IV 200 Intake, IV Titration 850 Amount Cefepime 2 gm In Sodium 100 Chloride 0.9% 100 ml @ 25 mls/hr IVPB Q12HR [facility] Rx #:[id number] Lactated Ringers 1,000 ml 750 @ 125 mls/hr IV .Q8H [facility] Rx#:[id number] Oral 450 Output: Urine 400 Other: Voiding Method Urinal Urinal Urinal # Voids 2 4 - Exam GENERAL EXAM: Alert, 80-year-old male patient, appears chronically ill, pale, on 5 L of oxygen a pulse ox of 92%, resting comfortably in bed appears weak, comfortable in no apparent distress. HEAD: Normocephalic/atraumatic. EYES: Normal reaction of pupils, equal size. Conjunctiva pink, sclera white. NOSE: Clear with pink turbinates. THROAT: No erythema or exudates. NECK: No masses, no JVD, no thyroid enlargement, no adenopathy. CHEST: No chest wall deformity. Symmetrical expansion. LUNGS: Equal air entry with scattered rhonchi more so on the right lung CVS: Regular rate and rhythm, normal S1 and S2, no gallops, no murmurs, no rubs ABDOMEN: Soft, nontender. No hepatosplenomegaly, normal bowel sounds, no guarding or rigidity. EXTREMITIES: No clubbing, no edema, no cyanosis, 2+ pulses and upper and lower extremities. MUSCULOSKELETAL: Muscle strength and tone normal. SPINE: No scoliosis or deformity SKIN: No rashes CENTRAL NERVOUS SYSTEM: Alert and oriented -3. No focal deficits, tone is normal in all 4 extremities. PSYCHIATRIC: Alert and oriented -3. Appropriate affect. Intact judgment and insight. - Labs CBC & Chem 7: 10/05/20 05:51 10/05/20 05:51 Labs: Abnormal Lab Results - Last 24 Hours (Table) 10/04/20 10/05/20 10/05/20 Range/Units 16:37 05:51 05:51 WBC 88.0 H* (3.8-10.6) k/uL RBC 2.98 L (4.30-5.90) m/uL Hgb 8.8 L (13.0-17.5) gm/dL Hct 28.4 L (39.0-53.0) % RDW 19.3 H (11.5-15.5) % Neutrophils # (Manual) 86.20 H (1.3-7.7) k/uL Lymphocytes # (Manual) 0.88 L (1.0-4.8) k/uL D-Dimer (<0.60) mg/L FEU Anion Gap 14.30 H (4.00-12.00) mmol/L BUN 42.0 H (9.0-27.0) mg/dL Est GFR (CKD-EPI)NonAf 57.6 L (60.0-200.0) BUN/Creatinine Ratio 35.00 H (12.00-20.00) Ratio Glucose 222 H (70-110) mg/dL POC Glucose (mg/dL) 254 H (75-99) mg/dL Calcium 11.4 H (8.7-10.3) mg/dL Ferritin 621.1 H (22.0-322.0) ng/mL AST 12 L (14-35) U/L Lactate Dehydrogenase 344 H (120-246) U/L C-Reactive Protein 3.4 H (0.0-0.8) mg/dL Total Protein 5.0 L (6.2-8.2) g/dL Albumin 2.90 L (3.80-4.90) g/dL Albumin/Globulin Ratio 1.38 L (1.60-3.17) g/dL 10/05/20 10/05/20 10/05/20 Range/Units 05:51 07:12 11:36 WBC (3.8-10.6) k/uL RBC (4.30-5.90) m/uL Hgb (13.0-17.5) gm/dL Hct (39.0-53.0) % RDW (11.5-15.5) % Neutrophils # (Manual) (1.3-7.7) k/uL Lymphocytes # (Manual) (1.0-4.8) k/uL D-Dimer 2.40 H (<0.60) mg/L FEU Anion Gap (4.00-12.00) mmol/L BUN (9.0-27.0) mg/dL Est GFR (CKD-EPI)NonAf (60.0-200.0) BUN/Creatinine Ratio (12.00-20.00) Ratio Glucose (70-110) mg/dL POC Glucose (mg/dL) 241 H 164 H (75-99) mg/dL Calcium (8.7-10.3) mg/dL Ferritin (22.0-322.0) ng/mL AST (14-35) U/L Lactate Dehydrogenase (120-246) U/L C-Reactive Protein (0.0-0.8) mg/dL Total Protein (6.2-8.2) g/dL Albumin (3.80-4.90) g/dL Albumin/Globulin Ratio (1.60-3.17) g/dL Microbiology - Last 24 Hours (Table) 10/02/20 11:39 Blood Culture - Preliminary Blood No Growth after 72 hours Assessment and Plan Assessment: 1. Acute hypoxic respiratory failure with the possibility of underlying pneumonia, healthcare acquired, an immunocompromised host, and there is a possibility of non-small cell lung cancer progression with appearance of lymphangitic carcinomatosis, on the appearance of the chest x-ray that showed worsening diffuse bilateral reticulonodular infiltrates. High resolution CT was obtained showing extensive reticular nodular infiltrates throughout the lungs with pleural effusions consistent with inflammatory disease or rapidly progressing lymphangitic metastatic disease. There is a 4 x 2 cm left-sided paraspinal infiltrate in the mid thoracic spine with possibility of skeletal metastasis. Bronchoscopy with BAL and biopsy today 10/05/2020 2. Non-small cell lung cancer diagnosed in June 2020, poorly differentiated, diagnosed via CT-guided biopsy on 06/19/2020 status post concurrent chemoradiation with weekly carboplatin and Taxol as a chemotherapy arm, and patient states he completed treatment on 09/04/2020 3. Recent hospitalization for dehydration, acute kidney injury and weakness and possibility of pneumonia, 09/16/2020 through 09/19/2020 discharged home on oral antibiotics 4. Hypercalcemia possibly related to skeletal metastasis 5. Hyponatremia related to hypovolemia 6. Weakness, dehydration, poor oral intake 7. Significant leukocytosis 8. Lactic acidosis, improving with IV hydration still remains significantly elevated, with possibility of sepsis 9. Diabetes mellitus type 2 10. Former smoker Plan: The patient was seen and evaluated by Dr. Alvarez For bronchoscopy with BAL and biopsies today Follow-up chest x-ray reveals no evidence of pneumothorax Await cultures and cytology We will continue to follow I, the cosigning physician, performed a history & physical examination of the patient. Lungs sounds with few scattered rhonchi more so on the right lung. Maintaining good O2 saturations in the 90s on 5 L/m per nasal cannula. I discussed the assessment and plan of care with my nurse practitioner, Daly Corey. I attest to the above note as dictated by her.
[2020-10-05] MEDS: ENOXAPARIN 40 MG/0.4 ML SYRINGE SQ SCH (15:46)
--- NOTE | 2020-10-05 16:34 | PN ---
PROGRESS NOTE DATE OF SERVICE: 10/05/2020 This 80-year-old gentleman who was admitted with acute bilateral interstitial pneumonia also had possibly radiation-associated pneumonia. The patient still has shortness of breath. Pulmonary is planning bronchoscopy and lavage and possible biopsy. The chest x-ray showed significant bilateral lesions, right more than the left. Past medical history reviewed. REVIEW OF SYSTEMS: CARDIOVASCULAR SYSTEM: No angina, palpitations. RESPIRATORY SYSTEM: As mentioned earlier. GI: As mentioned earlier. : No dysuria or retention. NERVOUS SYSTEM: No numbness, weakness. CURRENT MEDICATIONS: Reviewed. They include: 1. Tylenol. 2. DuoNeb. 3. Aspirin. 4. Lipitor. 5. Pulmicort. 6. Cefepime. 7. Lovenox. 8. Diflucan. 9. Perforomist. 10.Mucinex. 11.Zestril. 12.Glucophage. 13.Remeron. Doses are reviewed. PHYSICAL EXAMINATION: Patient alert and oriented x2. Pulse 91, blood pressure 129/65, respiration 20, temperature 97.2, pulse ox 92% on 5 L high-flow nasal cannula. HEENT: Conjunctivae normal. NECK: No jugular venous distention. CARDIOVASCULAR SYSTEM: S1, S2 muffled. RESPIRATORY SYSTEM: Breath sounds diminished at the bases. Bilateral scattered rhonchi and crackles. ABDOMEN: Soft, non-tender. LEGS: No edema. No swelling. NERVOUS SYSTEM: No focal deficit. LABS: Labs at this time show WBC 88, hemoglobin 8.8, sodium 140 and creatinine 1.2. Other labs are noted. ASSESSMENT: 1. Acute bilateral interstitial pneumonia with COPD, acute exacerbation, with possibly Gram-negative sepsis, present on admission, with acute hypoxic respiratory failure. 2. COVID-19 test negative. 3. 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 4. Possible carcinomatosis, lymphangitis with lymphatic spread of [id number] lung cancer. 5. Hyponatremia. 6. Hyperkalemia. 7. Increased white count. 8. Anemia, normocytic anemia of malignancy. 9. Possible metastatic lung cancer. 10.Hypomagnesemia. 11.Elevated LDH, CRP, D-dimer. 12.History of diabetes mellitus, type 2. 13.Hypertension. 14.Remote history of nicotine dependence. 15.Severe protein-calorie malnutrition with a body mass index of 18.5. 16.FULL CODE. RECOMMENDATIONS AND DISCUSSION: I recommend to continue current medications, continue with the monitoring, symptomatic treatment. Continue with IV steroids. Continue with the bronchodilators. Continue the rest of the medications. Continue the antibiotics. Otherwise, await bronchoscopy, BAL and possible biopsy by Dr. Alvarez. Guarded prognosis. Further recommendations to follow. MMODL / IJN: [id number] /
[2020-10-05 16:41] LABS: Glucose,Whole Blood 238 mg/dL (75-99)
--- NOTE | 2020-10-05 17:25 | OP ---
OPERATIVE REPORT OPERATIVE REPORT: Bronchoscopy, bronchoalveolar lavage of the right middle lobe, and multiple transbronchial biopsies of the right middle lobe and right lower lobe. PREOPERATIVE DIAGNOSIS: Reticulonodular infiltrate. Differential diagnosis includes lymphangitic carcinomatosis and/or infection. POSTOPERATIVE DIAGNOSIS: Reticulonodular infiltrate. Differential diagnosis includes lymphangitic carcinomatosis and/or infection. ANESTHESIA USED: The patient was given general anesthesia, intubated by RUG BACKING STENCILER. PROCEDURE DESCRIPTION: The patient was placed in a supine position, intubated by RUG BACKING STENCILER, and after intubation an adapter was applied to the endotracheal tube. The bronchoscope was advanced through the adapter down to the distal end of the endotracheal tube. I was able to visualize the distal trachea. Joelle was sharp. Thorough examination was done of the right upper lobe, right middle lobe, right lower lobe, left upper lobe, lingula and left lower lobe. Very minimal purulent secretions were noted, and these were suctioned easily. Otherwise there were no significant findings upon my endoscopic evaluation. Then the bronchoscope was wedged in the lateral segment of the right lower lobe. Multiple biopsies were done. I wedged the bronchoscope again in the right middle lobe, lateral segment, and multiple transbronchial biopsies were done with fluoroscopy as guidance. Procedure was well tolerated. There was no bleeding. No evidence of any complications. Chest x-ray was ordered postoperatively. MMODL / IJN: [id number] /
[2020-10-05 18:31] LABS: Appearance,BF Hazy; Color,BF Pink; Nucleated Cells, Body Fluid 175 /uL; RBC, Body Fluid 890 /uL
[2020-10-05 20:10] LABS: Glucose,Whole Blood 260 mg/dL (75-99)
[2020-10-05] MEDS: MIRTAZAPINE 15 MG TAB PO SCH (21:00)
[2020-10-05] MEDS: CHOLECALCIFEROL 1,000 UNIT TAB PO SCH (21:01)
[2020-10-05] MEDS: ASPIRIN 81 MG PO SCH (21:01)
[2020-10-05] MEDS: ATORVASTATIN 10 MG TAB PO SCH (21:01)
[2020-10-05 21:23] LABS: Mononuclear WBC,Body Fluid 15 %; Polynuclear WBC,Body Fluid 85 %
--- NOTE | 2020-10-05 22:34 | PN ---
PROGRESS NOTE DATE OF SERVICE: 10/05/2020 REASON FOR FOLLOWUP: Pneumonia. INTERVAL HISTORY: Patient is currently afebrile. The patient is status post bronchoscopy and transbronchial biopsy. Patient tolerated the procedure. Denies any chest pain. Minimal cough. No nausea, no vomiting. No abdominal pain. No diarrhea. PHYSICAL EXAMINATION: Blood pressure is 132/71 with a pulse of 105. Temperature 98.1. He is 92% on 6 L nasal cannula. General description: The patient is an elderly male lying in bed in no distress. Respiratory system: Unlabored breathing, decreased breath sounds at the base. No wheeze. HEART: S1, S2. Regular rate and rhythm. Abdomen soft, no tenderness. LABS: Hemoglobin 8.8. White count of 88,000. BUN of 42, creatinine is 1.2. DIAGNOSTIC IMPRESSION AND PLAN: Patient admitted to hospital with increased shortness of breath and cough in this patient who did have a diffuse interstitial infiltrate on CT with concern for possible lymphangitic spread of his cancer versus infection. The patient is status post bronch. Cultures will be followed. Continue vancomycin and cefepime. Monitor clinical course closely. MMODL / IJN: [id number] /
[2020-10-06] MEDS: methylPREDNISolone SOD SUCCI 125 MG/2 ML VIAL IV SCH ×5 (00:06→23:21)
[2020-10-06] MEDS: LACTATED RINGERS 1,000 ML IV SCH ×4 (00:06→22:00)
--- NOTE | 2020-10-06 02:29 | P.PN ---
Subjective Progress Note Date: 10/05/20 Principal diagnosis: Sepsis Still weak and fatigued overall stable today. Calcium has remained elevated despite hydration and treatment of underlying problems, will check PTH and Bone scan to further evaluate Objective - Vital Signs Vital signs: Vital Signs Temp 98.1 F 10/05/20 18:09 Pulse 105 H 10/05/20 18:09 Resp 16 10/05/20 18:09 BP 132/71 10/05/20 18:09 Pulse Ox 92 L 10/05/20 18:09 Intake & Output 10/04/20 10/05/20 10/05/20 18:59 06:59 18:59 Intake Total 1300 200 Output Total 400 Balance -400 1300 200 Weight 55.338 kg Intake: IV 200 Intake, IV Titration 850 Amount Cefepime 2 gm In Sodium 100 Chloride 0.9% 100 ml @ 25 mls/hr IVPB Q12HR [facility] Rx #:[id number] Lactated Ringers 1,000 ml 750 @ 125 mls/hr IV .Q8H [facility] Rx#:[id number] Oral 450 Output: Urine 400 Other: Voiding Method Urinal Urinal Urinal # Voids 2 4 2 - Exam - Constitutional General appearance: average body habitus, cooperative, no acute distress - EENT Eyes: anicteric sclerae, EOMI ENT: normal oropharynx - Neck Neck: no lymphadenopathy - Respiratory Respiratory: bilateral: rales - Cardiovascular Heart sounds: normal: S1, S2 leg Peripheral Edema: bilateral: None - Gastrointestinal General gastrointestinal: no absent bowel sounds, no decreased bowel sounds, no distended, no hepatomegaly, no hyperactive bowel sounds, normal bowel sounds, no organomegaly, no rigid, no scaphoid, soft, no splenomegaly, no tenderness, no umbilical hernia, no ventral hernia - Neurologic Neurologic: CNII-XII intact - Musculoskeletal Musculoskeletal: generalized weakness - Psychiatric Psychiatric: A&O x's 3, appropriate affect, intact judgment & insight - Labs CBC & Chem 7: 10/05/20 05:51 10/05/20 05:51 Labs: Abnormal Lab Results - Last 24 Hours (Table) 10/05/20 10/05/20 10/05/20 Range/Units 05:51 05:51 05:51 WBC 88.0 H* (3.8-10.6) k/uL RBC 2.98 L (4.30-5.90) m/uL Hgb 8.8 L (13.0-17.5) gm/dL Hct 28.4 L (39.0-53.0) % RDW 19.3 H (11.5-15.5) % Neutrophils # (Manual) 86.20 H (1.3-7.7) k/uL Lymphocytes # (Manual) 0.88 L (1.0-4.8) k/uL D-Dimer 2.40 H (<0.60) mg/L FEU Anion Gap 14.30 H (4.00-12.00) mmol/L BUN 42.0 H (9.0-27.0) mg/dL Est GFR (CKD-EPI)NonAf 57.6 L (60.0-200.0) BUN/Creatinine Ratio 35.00 H (12.00-20.00) Ratio Glucose 222 H (70-110) mg/dL POC Glucose (mg/dL) (75-99) mg/dL Calcium 11.4 H (8.7-10.3) mg/dL Ferritin 621.1 H (22.0-322.0) ng/mL AST 12 L (14-35) U/L Lactate Dehydrogenase 344 H (120-246) U/L C-Reactive Protein 3.4 H (0.0-0.8) mg/dL Total Protein 5.0 L (6.2-8.2) g/dL Albumin 2.90 L (3.80-4.90) g/dL Albumin/Globulin Ratio 1.38 L (1.60-3.17) g/dL 10/05/20 10/05/20 10/05/20 Range/Units 07:12 11:36 16:39 WBC (3.8-10.6) k/uL RBC (4.30-5.90) m/uL Hgb (13.0-17.5) gm/dL Hct (39.0-53.0) % RDW (11.5-15.5) % Neutrophils # (Manual) (1.3-7.7) k/uL Lymphocytes # (Manual) (1.0-4.8) k/uL D-Dimer (<0.60) mg/L FEU Anion Gap (4.00-12.00) mmol/L BUN (9.0-27.0) mg/dL Est GFR (CKD-EPI)NonAf (60.0-200.0) BUN/Creatinine Ratio (12.00-20.00) Ratio Glucose (70-110) mg/dL POC Glucose (mg/dL) 241 H 164 H 238 H (75-99) mg/dL Calcium (8.7-10.3) mg/dL Ferritin (22.0-322.0) ng/mL AST (14-35) U/L Lactate Dehydrogenase (120-246) U/L C-Reactive Protein (0.0-0.8) mg/dL Total Protein (6.2-8.2) g/dL Albumin (3.80-4.90) g/dL Albumin/Globulin Ratio (1.60-3.17) g/dL Microbiology - Last 24 Hours (Table) 10/02/20 11:39 Blood Culture - Preliminary Blood No Growth after 72 hours Assessment and Plan Plan: CT scan - chest: report reviewed, image reviewed Assessment and Plan Pneumonia: - Repeat Imaging Chest after resolution of antibiotics and patient improves Non-small cell carcinoma of lung, left - Status Post Treatment 08/30/20 - Plan for repeat imaging after resolution of acute hospitalization Hypercalcemia - Hypercalcemia-suspect r/t dehydration, recheck in AM after hydration Leukocytosis - Labs reviewed-leukocytosis with elevated ANC-likely r/t infection.
[2020-10-06] MEDS: VANCOMYCIN 1,000 MG in SODIUM CHLORIDE 0.9% 250 ML IVPB SCH ×2 (02:38→16:57)
[2020-10-06] MEDS: IPRATROPIUM-ALBUTEROL 3 ML NEB INHALATION SCH ×6 (04:01→23:34)
[2020-10-06 06:44] LABS: Anisocytosis Slight; HCT 28.2 % (39.0-53.0); HGB 8.7 gm/dL (13.0-17.5); Hypochromasia Marked; MCH 29.4 pg (25.0-35.0); MCV 94.6 fL (80.0-100.0); Macrocytosis Slight; Mean Platelet Volume 8.3; Platelet Count 320 k/uL (150-450); RBC 2.98 m/uL (4.30-5.90); RDW 19.6 % (11.5-15.5)
[2020-10-06 06:53] LABS: WBC 97.1 k/uL (3.8-10.6)
[2020-10-06 06:57] LABS: Glucose,Whole Blood 227 mg/dL (75-99)
[2020-10-06] MEDS: PANTOPRAZOLE 40 MG TABLET PO SCH (07:37)
[2020-10-06] MEDS: CEFEPIME 2 GM in SODIUM CHLORIDE 0.9% 100 ML IVPB SCH ×2 (07:37→20:57)
[2020-10-06] MEDS: INSULIN ASPART (NovoLOG) 100 UNIT/ML VIAL SQ SCH ×4 (07:37→20:58)
[2020-10-06] MEDS: metFORMIN 500 MG TAB PO SCH ×3 (07:38→20:57)
[2020-10-06] MEDS: FLUCONAZOLE 100 MG TAB PO SCH (07:38)
[2020-10-06] MEDS: lisinopriL 10 MG TAB PO SCH (07:38)
[2020-10-06] MEDS: guaiFENesin 600 MG TABLET.ER PO SCH ×3 (07:38→20:57)
[2020-10-06 09:00] LABS: African American GFR (CKD) 74.1 (60.0-200.0); Albumin 2.9 g/dL (3.80-4.90); Albumin/Globulin Ratio 1.45 (1.60-3.17); Anion Gap 13.6 mmol/L (4.00-12.00); BUN/Creat Ratio 42.73 Ratio (12.00-20.00); C Reactive Protein 2.3 mg/dL (0.0-0.8); Calcium 11.2 mg/dL (8.7-10.3); Carbon Dioxide 22.4 mmol/L (21.6-31.8); Potassium 3.6 mmol/L (3.5-5.5); Total Bilirubin 0.4 mg/dL (0.3-1.2); Total Protein 4.9 g/dL (6.2-8.2)
[2020-10-06 09:16] LABS: Ferritin 646.5 ng/mL (22.0-322.0)
[2020-10-06] MEDS: FORMOTEROL FUMARATE 20 MCG/2 ML NEBU INHALATION SCH ×2 (10:13→19:12)
[2020-10-06] MEDS: BUDESONIDE 1 MG/2 ML NEBU INHALATION SCH ×2 (10:13→19:12)
[2020-10-06 11:32] LABS: Band Neutrophils % 3 %; Monocytes # (M) 0.97 k/uL (0-1.0); Neutrophils % (M) 96 %; Nucleated Red Blood Cells 0 /100 WBC (0-0); Total Cells Counted 100
[2020-10-06 11:43] LABS: Glucose,Whole Blood 124 mg/dL (75-99)
--- NOTE | 2020-10-06 11:50 | NM ---
EXAMINATION TYPE: NM bone scan whole body DATE OF EXAM: 10/06/2020 COMPARISON: CT chest 3 days ago. HISTORY: History of lung cancer with persistent hypercalcemia. Delayed whole-body scanning was performed following the injection of 22 mCi Tc 99m MDP. Images acqui red 3 hours post injection. Delayed images of the entire body in anterior and posterior projection al diane with additional oblique projections of the thorax abdomen and pelvis are acquired. FINDINGS: No suspicious increased radiotracer uptake to suggest metastatic disease to the bone or oth er suspicious abnormality. Normal excretion in the bladder is identified. Underlying scoliotic curvat ure is present. IMPRESSION: As above.
--- NOTE | 2020-10-06 16:26 | P.PN ---
Subjective Progress Note Date: 10/06/20 Principal diagnosis: Acute hypoxic respiratory failure secondary to suspected underlying pneumonia in a patient with a history of non-small cell lung cancer with possible progression This is a 72-year-old white male patient with history of diagnosis of non-small cell lung cancer who was started on chemotherapy and radiation. Patient follows with Dr. Garcia and Dr. Velazquez from the Coumadin is Maurokyree Cain. He states he had finished his chemotherapy on 09/04/2020. He had a recent hospitalization from 09/16/2020 through 09/19/2020 when he came in with the signs of severe dehydration, loss of appetite, following his chemotherapy. Patient also had acute kidney injury, leukocytosis. He was checked for COVID 19 and influenza which were negative. He was hydrated, he was treated with antibiotics, for possibility of pneumonia, currently improved, he was discharged home on the course of Augmentin. Patient came back to the emergency department on 10/02/2020 with complaints of worsening shortness of breath, weakness, loss of appetite, and patient has not been able to take in much in the way of oral intake. Denies any fever or chills, he states he is bringing up some heavy phlegm, denies any chest pain, he has a weak but congested cough. He was started on empiric AmBisome the form of cefepime and vancomycin, he was tested for COVID 19 and was found to be negative. His chest x-ray showed a worsening diffuse bilateral reticulonodular infiltrates and/or edema with possibility of atypical infection, and possible adverse reactive changes to the treatment for lung cancer. He is not normally on oxygen, right now he is wearing 6 L of oxygen pulse ox of 95%, he has been afebrile, his blood work revealed leukocytosis, with white blood cell, 71.4, hemoglobin of 9.8, his INR was 1.2, sodium was 128, potassium is 5.2, chloride was 95, CO2 is 21, B1 is 27 cr eatinine 0.93, and plasma lactic acid of 4.3, improved with IV rehydration, however still remains elevated. ID service was consulted, and we were consulted for pulmonary evaluation. On 10/03/2020 patient seen in follow-up on medical surgical floor, he is awake and alert, remains on 6 L of oxygen pulse ox of 94%, he states he still about the same, still very pale and weak, but denies any shortness of breath, no cough, no fever or chills, denies any chest pain, no back pain. His been afebrile, today's labs have been reviewed, showing white blood cell, still significantly elevated at 76.4, hemoglobin is 9.3, sodium is 134, potassium is 5.0, BUN of 29, creatinine is 1, calcium is 11.4, AST is 18, ALT 17, alkaline phosphatase within normal limits at 103 patient was rehydrated, creatinine flu ids at 20 ML per hour, remains on IV Solu-Medrol 60 every 6 hours and antibiotics in the form of cefepime, Diflucan, and vancomycin. COVID 19 was not detected, his Legionella urine antigen was negative, pro-calcitonin level came back elevated at 0.49. Medical oncology has been consulted, radiation oncology has been consulted,ID service consulted The patient is seen today 10/04/2020 in follow-up on the regular medical floor. He remains awake and alert in no acute distress. Currently maintaining O2 saturations in the 90s on 6 L/m per nasal cannula. Currently afebrile. Blood culture reveals no growth. White count 87.4. Hemoglobin 9.0. Lymphocytes 0.2. D-dimer 2.19. Sodium 138. Potassium 4.4. Creatinine 1.0. Ferritin 739. LDH 411. C-reactive protein 6.4. He remains on IV Solu-Medrol, bronchodilators, Lovenox, antibiotics in the form of cefepime and vancomycin. Chest x-ray reveals diffuse reticular nodule infiltrates with more focal component of right medial lung base. Mild interval progression. Patient is seen today 10/05/2020 in follow-up on the regular medical floor. He is currently resting fairly comfortably in bed. Awake and alert in no acute distress. Continue O2 saturations in the 90s on 5 L high flow nasal cannula. Afebrile. He was dynamically stable. White count 88,000. Hemoglobin 8.8. Platelets 303. Neutrophils 86. D-dimer 2.40. Sodium 140. Potassium 4.3. Creatinine 1.2. Plan is for bronchoscopy with biopsies today. The patient is seen today 10/06/2020 in follow-up on the regular medical floor. He is currently up in a chair at the bedside. Awake and alert in no acute distress. He is still on 6 L high flow nasal cannula to maintain O2 saturations in the 90s. He did undergo bronchoscopy with BAL and biopsies yesterday. Concerns regarding possible lymphangitic carcinomatosis versus infection. Cultures pending. Pathology pending. Bone scan today revealed no suspicious metastatic disease to the bone or other abnormalities. He is currently on cefepime and vancomycin. Remains on bronchodilators and IV Solu-Medrol. White count 97.1. Hemoglobin 8.7. D-dimer 1.83. Sodium 140. Potassium 3.6. Creatinine 1.1. Ferritin 646. LDH 345. C-reactive protein 2.3. PTH intact 9.8. Calcium 11.2. Ferritin 646. Objective - Vital Signs Vital signs: Vital Signs Temp 99.0 F 10/06/20 14:57 Pulse 100 10/06/20 14:57 Resp 18 10/06/20 05:58 BP 155/70 10/06/20 14:57 Pulse Ox 91 L 10/06/20 14:57 Intake & Output 10/05/20 10/06/20 10/06/20 18:59 06:59 18:59 Intake Total 200 Balance 200 Weight 55.338 kg Intake: IV 200 Other: Voiding Method Urinal Urinal # Voids 2 1 # Bowel Movements 1 1 - Exam GENERAL EXAM: Alert, 80-year-old male patient, appears chronically ill, pale, on 6 L of oxygen a pulse ox of 91%, appears weak, comfortable in no apparent distre ss. HEAD: Normocephalic/atraumatic. EYES: Normal reaction of pupils, equal size. Conjunctiva pink, sclera white. NOSE: Clear with pink turbinates. THROAT: No erythema or exudates. NECK: No masses, no JVD, no thyroid enlargement, no adenopathy. CHEST: No chest wall deformity. Symmetrical expansion. LUNGS: Equal air entry with scattered rhonchi more so on the right lung CVS: Regular rate and rhythm, normal S1 and S2, no gallops, no murmurs, no rubs ABDOMEN: Soft, nontender. No hepatosplenomegaly, normal bowel sounds, no guarding or rigidity. EXTREMITIES: No clubbing, no edema, no cyanosis, 2+ pulses and upper and lower extremities. MUSCULOSKELETAL: Muscle strength and tone normal. SPINE: No scoliosis or deformity SKIN: No rashes CENTRAL NERVOUS SYSTEM: No focal deficits, tone is normal in all 4 extremities. PSYCHIATRIC: Alert and oriented -3. Appropriate affect. Intact judgment and insight. - Labs CBC & Chem 7: 10/06/20 06:17 10/06/20 06:17 Labs: Abnormal Lab Results - Last 24 Hours (Table) 10/05/20 10/05/20 10/06/20 Range/Units 16:39 20:09 06:17 WBC 97.1 H* (3.8-10.6) k/uL RBC 2.98 L (4.30-5.90) m/uL Hgb 8.7 L (13.0-17.5) gm/dL Hct 28.2 L (39.0-53.0) % RDW 19.6 H (11.5-15.5) % Neutrophils # (Manual) 96.10 H (1.3-7.7) k/uL D-Dimer (<0.60) mg/L FEU Anion Gap (4.00-12.00) mmol/L BUN (9.0-27.0) mg/dL BUN/Creatinine Ratio (12.00-20.00) Ratio Glucose (70-110) mg/dL POC Glucose (mg/dL) 238 H 260 H (75-99) mg/dL Calcium (8.7-10.3) mg/dL Ferritin (22.0-322.0) ng/mL AST (14-35) U/L Lactate Dehydrogenase (120-246) U/L C-Reactive Protein (0.0-0.8) mg/dL Total Protein (6.2-8.2) g/dL Albumin (3.80-4.90) g/dL Albumin/Globulin Ratio (1.60-3.17) g/dL PTH Intact (14.0-72.0) pg/mL 10/06/20 10/06/20 10/06/20 Range/Units 06:17 06:17 06:17 WBC (3.8-10.6) k/uL RBC (4.30-5.90) m/uL Hgb (13.0-17.5) gm/dL Hct (39.0-53.0) % RDW (11.5-15.5) % Neutrophils # (Manual) (1.3-7.7) k/uL D-Dimer 1.83 H (<0.60) mg/L FEU Anion Gap 13.60 H (4.00-12.00) mmol/L BUN 47.0 H (9.0-27.0) mg/dL BUN/Creatinine Ratio 42.73 H (12.00-20.00) Ratio Glucose 220 H (70-110) mg/dL POC Glucose (mg/dL) (75-99) mg/dL Calcium 11.2 H (8.7-10.3) mg/dL Ferritin 646.5 H (22.0-322.0) ng/mL AST 13 L (14-35) U/L Lactate Dehydrogenase 345 H (120-246) U/L C-Reactive Protein 2.3 H (0.0-0.8) mg/dL Total Protein 4.9 L (6.2-8.2) g/dL Albumin 2.90 L (3.80-4.90) g/dL Albumin/Globulin Ratio 1.45 L (1.60-3.17) g/dL PTH Intact 9.8 L (14.0-72.0) pg/mL 10/06/20 10/06/20 Range/Units 06:55 11:42 WBC (3.8-10.6) k/uL RBC (4.30-5.90) m/uL Hgb (13.0-17.5) gm/dL Hct (39.0-53.0) % RDW (11.5-15.5) % Neutrophils # (Manual) (1.3-7.7) k/uL D-Dimer (<0.60) mg/L FEU Anion Gap (4.00-12.00) mmol/L BUN (9.0-27.0) mg/dL BUN/Creatinine Ratio (12.00-20.00) Ratio Glucose (70-110) mg/dL POC Glucose (mg/dL) 227 H 124 H (75-99) mg/dL Calcium (8.7-10.3) mg/dL Ferritin (22.0-322.0) ng/mL AST (14-35) U/L Lactate Dehydrogenase (120-246) U/L C-Reactive Protein (0.0-0.8) mg/dL Total Protein (6.2-8.2) g/dL Albumin (3.80-4.90) g/dL Albumin/Globulin Ratio (1.60-3.17) g/dL PTH Intact (14.0-72.0) pg/mL Microbiology - Last 24 Hours (Table) 10/02/20 11:39 Blood Culture - Preliminary Blood No Growth after 96 hours 10/05/20 14:00 Gram Stain - Preliminary Bronchoalviolar Lavage - Right Bronchial Washings Culture - Preliminary 10/05/20 14:00 Acid Fast Bacilli Culture - Preliminary Bronchoalviolar Lavage - Right 10/05/20 14:00 Fungal Culture - Preliminary Bronchoalviolar Lavage - Right Assessment and Plan Assessment: 1. Acute hypoxic respiratory failure with the possibility of underlying pneumonia, healthcare acquired, an immunocompromised host, and there is a possibility of non-small cell lung cancer progression with appearance of lymphangitic carcinomatosis, on the appearance of the chest x-ray that showed worsening diffuse bilateral reticulonodular infiltrates. High resolution CT was obtained showing extensive reticular nodular infiltrates throughout the lungs with pleural effusions consistent with inflammatory disease or rapidly progressing lymphangitic metastatic disease. Bronchoscopy with BAL and biopsy 10/05/2020, cultures and pathology pending 2. Non-small cell lung cancer diagnosed in June 2020, poorly differentiated, diagnosed via CT-guided biopsy on 06/19/2020 status post concurrent chemoradiation with weekly carboplatin and Taxol as a chemotherapy arm, and patient states he completed treatment on 09/04/2020 3. Recent hospitalization for dehydration, acute kidney injury and weakness and possibility of pneumonia, 09/16/2020 through 09/19/2020 discharged home on oral antibiotics 4. Hypercalcemia, bone scan revealed no evidence of skeletal metastasis 5. Hyponatremia related to hypovolemia 6. Weakness, dehydration, poor oral intake 7. Significant leukocytosis suspect leukemoid reaction versus CLL 8. Lactic acidosis, improving with IV hydration still remains significantly elevated, with possibility of sepsis 9. Diabetes mellitus type 2 10. Former smoker Plan: The patient was seen and evaluated by Dr. Alvarez Continue the current treatment plan for now Await cultures and cytology Oncology is on the case We will continue to follow I, the cosigning physician, performed a history & physical examination of the patient. Lungs sounds with few scattered rhonchi more so on the right lung. Maintaining good O2 saturations in the 90s on 6 L/m per nasal cannula. I discussed the assessment and plan of care with my nurse practitioner, Daly Corey. I attest to the above note as dictated by her.
[2020-10-06 16:44] LABS: Glucose,Whole Blood 203 mg/dL (75-99)
[2020-10-06] MEDS: ENOXAPARIN 40 MG/0.4 ML SYRINGE SQ SCH (16:57)
[2020-10-06] MEDS ORDERED: SODIUM CHLORIDE 0.9% 250 ML with PAMIDRONATE 60 MG IV ONE ×2 (20:00)
[2020-10-06 20:10] LABS: Glucose,Whole Blood 86 mg/dL (75-99)
[2020-10-06] MEDS: CHOLECALCIFEROL 1,000 UNIT TAB PO SCH ×2 (20:57)
[2020-10-06] MEDS: MIRTAZAPINE 15 MG TAB PO SCH ×2 (20:57)
[2020-10-06] MEDS: ASPIRIN 81 MG PO SCH ×2 (20:57)
[2020-10-06] MEDS: ATORVASTATIN 10 MG TAB PO SCH ×2 (20:57)
--- NOTE | 2020-10-06 21:31 | PN ---
PROGRESS NOTE DATE OF SERVICE: 10/06/2020 REASON FOR VISIT: Lung carcinoma. CHIEF COMPLAINT: Weak. This patient was seen today as a followup. He appears to be somewhat confused. He is cachectic-looking. He is trying to answer questions, but having a hard time finding words. CURRENT MEDICATION: Include the following, Tylenol as needed, albuterol inhaler, aspirin 81 mg daily, Lipitor 10 mg daily, Pulmicort b.i.d., cefepime 2 g IV piggyback every 12 hours, vitamin D3 5000 units daily, Lovenox 40 mg subcu daily, Diflucan 100 mg p.o. daily, Mucinex is 1200 mg q.12 hours, NovoLog sliding scale, lactated Ringer solution at 125 mL/hours, Zestril 10 mg p.o. daily, metformin 1000 mg b.i.d., Solu-Medrol 60 mg IV every 6 hours, Remeron 50 mg daily, Zofran 4 mg every 8 hours as needed IV, Protonix 40 mg p.o. b.i.d., vancomycin 125 IV every 16 hours per pharmacy dosing. PHYSICAL EXAM: On physical examination, as stated, he is alert, but appears to be disoriented, having hard time finding words. He is cachectic-looking. He does not appear to be in pain. His vital signs are temperature 99.9, afebrile, pulse 100, respiration 18, blood pressure 135/70, pulse ox is 91 percent on 6 L. HEENT: Normocephalic, atraumatic. Oral mucosa are dry and there is evidence of some thrush. NECK: Supple. CHEST: Equal expansion bilaterally. There are crackles and rhonchi in all treadwell. HEART: Tachy and regular. ABDOMEN: Soft. No tenderness. EXTREMITIES: Revealed no edema. LABORATORY DATA: WBC of 97.1, hemoglobin 8.7, hematocrit 28.2, platelets are 320, sodium 140, potassium 3.6, chloride 104, CO2 22.4, BUN is 47, creatinine 1.1, calcium is 111, total protein is 4.9, albumin is 2.6. IMPRESSION: 1. Acute respiratory failure. This is multifactorial. It is probably related to radiation pneumonitis and also superimposed community-acquired pneumonia. It is less likely to be related to lymphangitic spread to his malignancy. The patient just recently completed definitive chemoradiation therapy to a locally advanced stage 3a non-small cell lung carcinoma and this would makes it very unlikely to have this rapid progression of lymphangitic spread since he just recently completed his chemoradiation therapy. 2. Hypercalcemia. The patient's calcium remains elevated and actually in fact is probably significantly elevated given his low serum albumin level. He is receiving IV hydration. Full but there is not much change, but there is not much improvement in his calcium level. Again, given the low serum albumin level, his corrected calcium is likely significantly more elevated and that is probably also contributing to his confusion. 3. Leukocytosis. This is likely reactive in nature to the steroids and possible to the community-acquired superimposed pneumonia. RECOMMENDATION: 1. Continue IV antibiotics and broad-spectrum antibiotics as ordered by Pulmonary. 2. Continue steroids. 3. Continue IV hydration. 4. Will proceed with dose of pamidronate to correct his calcium. Thank you. MMHOMEL / KAYLIEN: [id number] /
--- NOTE | 2020-10-06 22:49 | PN ---
PROGRESS NOTE DATE OF SERVICE: 10/06/2020 This 74-year-old gentleman with bilateral pneumonia, interstitial pneumonia is being closely monitored. Patient had a bone scan today which showed no suspicious lesions of metastatic lesions with possible radiation pneumonia is also being considered. The patient is confused as well. Patient is on IV steroids and antibiotics also. Multiple consultatants including pulmonary is following the patient closely. The possibility of non-small cell cancer with progression with lymphangitic spread was also considered. Bronchoscopy biopsies. Pathology was pending at this time. The cultures are negative so far. Past medical history reviewed. REVIEW OF SYSTEMS: Could not be taken, the patient is confused. CURRENT MEDICATIONS: Tylenol, DuoNeb, aspirin, Lipitor, Pulmicort, cefepime, cholecalciferol, Diflucan, Zestril, Solu-Medrol. PHYSICAL EXAM: Patient is conscious, confused. Pulse 90. Blood pressure 148/68, respiration 18, temperature 98.2, pulse ox 92% on 6 L. HEENT: Conjunctivae normal. Oral mucosa moist. Neck is no jugular venous distention. No lymph node enlargement. Cardiovascular systems: S1, S2 muffled. RESPIRATION breath sounds diminished in the bases. Bilateral scattered rhonchi and crackles. ABDOMEN: Soft, nontender. LEGS are no edema. No swelling. LABS: WBC 97.1, hemoglobin is 8.7, otherwise other labs are noted. ASSESSMENT: 1. Acute bilateral pneumonia, interstitial pneumonia with COPD acute exacerbation with possibly gram-negative with sepsis present on admission with acute hypoxic respiratory failure. 2. Covid 19 test negative. 3. 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 4. Status post bronchoscopy and biopsy. 5. 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 6. Hyponatremia. 7. Change in mental status acute metabolic encephalopathy. 8. Hyperkalemia. 9. Increased WBC. 10.Anemia, normocytic anemia of malignancy. 11.Metastatic lung cancer. 12.Hypomagnesemia. 13.Elevated LDH, CRP, D-dimer. 14.Bone scan negative. 15.History of diabetes type 2. 16.Hypertension. 17.Remote history of nicotine dependence. 18.Severe protein calorie malnutrition with body mass index 18.5. 19.FULL CODE. RECOMMENDATIONS AND DISCUSSION: Continue current management. Continue the antibiotics and steroids. Repeat labs. Otherwise, monitor closely and adjusted the medications. Guarded prognosis further medications to follow. Supplement vitamins. See orders for details. Further recommendations to follow. MMODL / IJN: [id number] /
--- NOTE | 2020-10-07 04:40 | PN ---
PROGRESS NOTE DATE OF SERVICE: 10/06/2020 REASON FOR FOLLOWUP: Pneumonia. INTERVAL HISTORY: Patient is currently afebrile. He is complaining of some shortness of breath and cough today. The patient denies having any chest pain. No nausea, vomiting. No abdominal pain, no diarrhea. PHYSICAL EXAMINATION: Blood pressure 114/68 with a pulse of 90, temperature 98.6. He is 92% on 6 L nasal cannula. General description is an elderly male lying in bed in no distress. Respiratory system: Unlabored breathing, decreased intensity of breath sounds. No wheeze. Heart S1, S2. Regular rate and rhythm. Abdomen soft, no tenderness. LABS: Hemoglobin 8.9, white count 97.1 with BUN of 47, creatinine is 1.1. DIAGNOSTIC IMPRESSION AND PLAN: Patient with possibly pneumonia with concern for possible lymphangitic spread. The patient is currently covered with cefepime and vancomycin, to continue. He continues to have worsening of his white count which could be related to steroids that the patient is on. Monitor for worsening condition and monitor clinical course closely. MMODL / KAYLIEN: [id number] /
[2020-10-07] MEDS: methylPREDNISolone SOD SUCCI 125 MG/2 ML VIAL IV SCH ×2 (05:06→10:51)
[2020-10-07] MEDS: LACTATED RINGERS 1,000 ML IV SCH ×3 (05:07→23:00)
[2020-10-07 05:57] LABS: Anisocytosis Slight; Basophils # (A) 0.7 k/uL (0-0.2); Basophils % (A) 1 %; Eosinophils # (A) 0.3 k/uL (0-0.7); Eosinophils % (A) 0 %; HCT 29.1 % (39.0-53.0); HGB 9.3 gm/dL (13.0-17.5); Hypochromasia Marked; Lymphocytes % (A) 0 %; MCH 30.3 pg (25.0-35.0); MCHC 31.7 g/dL (31.0-37.0); MCV 95.5 fL (80.0-100.0); Macrocytosis Slight; Mean Platelet Volume 8.3; Monocytes % (A) 1 %; Neutrophils # (A) 93.5 k/uL (1.3-7.7); Platelet Count 301 k/uL (150-450); RBC 3.05 m/uL (4.30-5.90); RDW 19.7 % (11.5-15.5)
[2020-10-07] MEDS: IPRATROPIUM-ALBUTEROL 3 ML NEB INHALATION SCH ×6 (06:08→23:29)
[2020-10-07 06:59] LABS: Glucose,Whole Blood 209 mg/dL (75-99)
[2020-10-07] MEDS: lisinopriL 10 MG TAB PO SCH (07:14)
[2020-10-07] MEDS: guaiFENesin 600 MG TABLET.ER PO SCH ×2 (07:14→20:13)
[2020-10-07] MEDS: FLUCONAZOLE 100 MG TAB PO SCH (07:14)
[2020-10-07] MEDS: metFORMIN 500 MG TAB PO SCH ×2 (07:14→20:12)
[2020-10-07] MEDS: CEFEPIME 2 GM in SODIUM CHLORIDE 0.9% 100 ML IVPB SCH ×2 (07:14→20:12)
[2020-10-07] MEDS: INSULIN ASPART (NovoLOG) 100 UNIT/ML VIAL SQ SCH ×4 (07:14→20:12)
[2020-10-07] MEDS: PANTOPRAZOLE 40 MG TABLET PO SCH (07:14)
[2020-10-07 07:15] LABS: WBC 95.5 k/uL (3.8-10.6)
[2020-10-07] MEDS: BUDESONIDE 1 MG/2 ML NEBU INHALATION SCH ×2 (07:36→19:20)
[2020-10-07] MEDS: FORMOTEROL FUMARATE 20 MCG/2 ML NEBU INHALATION SCH ×2 (07:36→19:29)
[2020-10-07 09:08] LABS: Toxic Granulation Present
[2020-10-07 10:15] LABS: African American GFR (CKD) 83.2 (60.0-200.0); Calcium 11.7 mg/dL (8.7-10.3); Non-African American GFR(CKD) 71.8 (60.0-200.0); Potassium 3.9 mmol/L (3.5-5.5)
[2020-10-07] MEDS: VANCOMYCIN 1,000 MG in SODIUM CHLORIDE 0.9% 250 ML IVPB SCH (10:50)
[2020-10-07] MEDS: THIAMINE 100 MG TAB PO SCH (10:51)
[2020-10-07] MEDS: MULTIVITAMINS, THERA 1 EACH TAB PO SCH (10:51)
[2020-10-07] MEDS: FOLIC ACID 1 MG TAB PO SCH (10:51)
[2020-10-07 11:25] LABS: Glucose,Whole Blood 135 mg/dL (75-99)
--- NOTE | 2020-10-07 15:15 | P.PN ---
Subjective Progress Note Date: 10/07/20 Principal diagnosis: Acute hypoxic respiratory failure secondary to suspected underlying pneumonia in a patient with a history of non-small cell lung cancer with possible progression This is a 72-year-old white male patient with history of diagnosis of non-small cell lung cancer who was started on chemotherapy and radiation. Patient follows with Dr. Garcia and Dr. Velazquez from the Coumadin is Maurokyree Cain. He states he had finished his chemotherapy on 09/04/2020. He had a recent hospitalization from 09/16/2020 through 09/19/2020 when he came in with the signs of severe dehydration, loss of appetite, following his chemotherapy. Patient also had acute kidney injury, leukocytosis. He was checked for COVID 19 and influenza which were negative. He was hydrated, he was treated with antibiotics, for possibility of pneumonia, currently improved, he was discharged home on the course of Augmentin. Patient came back to the emergency department on 10/02/2020 with complaints of worsening shortness of breath, weakness, loss of appetite, and patient has not been able to take in much in the way of oral intake. Denies any fever or chills, he states he is bringing up some heavy phlegm, denies any chest pain, he has a weak but congested cough. He was started on empiric AmBisome the form of cefepime and vancomycin, he was tested for COVID 19 and was found to be negative. His chest x-ray showed a worsening diffuse bilateral reticulonodular infiltrates and/or edema with possibility of atypical infection, and possible adverse reactive changes to the treatment for lung cancer. He is not normally on oxygen, right now he is wearing 6 L of oxygen pulse ox of 95%, he has been afebrile, his blood work revealed leukocytosis, with white blood cell, 71.4, hemoglobin of 9.8, his INR was 1.2, sodium was 128, potassium is 5.2, chloride was 95, CO2 is 21, B1 is 27 cr eatinine 0.93, and plasma lactic acid of 4.3, improved with IV rehydration, however still remains elevated. ID service was consulted, and we were consulted for pulmonary evaluation. On 10/03/2020 patient seen in follow-up on medical surgical floor, he is awake and alert, remains on 6 L of oxygen pulse ox of 94%, he states he still about the same, still very pale and weak, but denies any shortness of breath, no cough, no fever or chills, denies any chest pain, no back pain. His been afebrile, today's labs have been reviewed, showing white blood cell, still significantly elevated at 76.4, hemoglobin is 9.3, sodium is 134, potassium is 5.0, BUN of 29, creatinine is 1, calcium is 11.4, AST is 18, ALT 17, alkaline phosphatase within normal limits at 103 patient was rehydrated, creatinine flu ids at 20 ML per hour, remains on IV Solu-Medrol 60 every 6 hours and antibiotics in the form of cefepime, Diflucan, and vancomycin. COVID 19 was not detected, his Legionella urine antigen was negative, pro-calcitonin level came back elevated at 0.49. Medical oncology has been consulted, radiation oncology has been consulted,ID service consulted The patient is seen today 10/04/2020 in follow-up on the regular medical floor. He remains awake and alert in no acute distress. Currently maintaining O2 saturations in the 90s on 6 L/m per nasal cannula. Currently afebrile. Blood culture reveals no growth. White count 87.4. Hemoglobin 9.0. Lymphocytes 0.2. D-dimer 2.19. Sodium 138. Potassium 4.4. Creatinine 1.0. Ferritin 739. LDH 411. C-reactive protein 6.4. He remains on IV Solu-Medrol, bronchodilators, Lovenox, antibiotics in the form of cefepime and vancomycin. Chest x-ray reveals diffuse reticular nodule infiltrates with more focal component of right medial lung base. Mild interval progression. Patient is seen today 10/05/2020 in follow-up on the regular medical floor. He is currently resting fairly comfortably in bed. Awake and alert in no acute distress. Continue O2 saturations in the 90s on 5 L high flow nasal cannula. Afebrile. He was dynamically stable. White count 88,000. Hemoglobin 8.8. Platelets 303. Neutrophils 86. D-dimer 2.40. Sodium 140. Potassium 4.3. Creatinine 1.2. Plan is for bronchoscopy with biopsies today. The patient is seen today 10/06/2020 in follow-up on the regular medical floor. He is currently up in a chair at the bedside. Awake and alert in no acute distress. He is still on 6 L high flow nasal cannula to maintain O2 saturations in the 90s. He did undergo bronchoscopy with BAL and biopsies yesterday. Concerns regarding possible lymphangitic carcinomatosis versus infection. Cultures pending. Pathology pending. Bone scan today revealed no suspicious metastatic disease to the bone or other abnormalities. He is currently on cefepime and vancomycin. Remains on bronchodilators and IV Solu-Medrol. White count 97.1. Hemoglobin 8.7. D-dimer 1.83. Sodium 140. Potassium 3.6. Creatinine 1.1. Ferritin 646. LDH 345. C-reactive protein 2.3. PTH intact 9.8. Calcium 11.2. Ferritin 646. The patient is seen today 10/07/2020 in follow-up on the regular medical floor. He is somewhat restless in bed. He is still requiring 6 L high flow nasal cannula to maintain O2 saturations in the 90s. White count 95.5. Hemoglobin 9.3. Sodium 142. Potassium 3.9. Creatinine 1.0. Arthroscopy wash cultures are still pending. Biopsies pending. Continued on bronchodilators, IV Solu- Medrol, antibiotics in the form of vancomycin and cefepime. Lovenox for DVT prophylaxis. Objective - Vital Signs Vital signs: Vital Signs Temp 96.9 F L 10/07/20 14:00 Pulse 103 H 10/07/20 14:00 Resp 22 10/07/20 06:00 BP 176/86 10/07/20 14:00 Pulse Ox 97 10/07/20 14:00 Intake & Output 10/06/20 10/07/20 10/07/20 18:59 06:59 18:59 Intake Total 50 Output Total 1 Balance -1 50 Intake: Oral 50 Output: Stool 1 Other: Voiding Method Urinal Urinal Diaper Diaper # Voids 1 # Bowel Movements 1 - Exam GENERAL EXAM: Alert, 80-year-old male patient, appears chronically ill, cachectic, pale, on 6 L of oxygen a pulse ox of 91%, appears weak, comfortable in no apparent distress. HEAD: Normocephalic/atraumatic. EYES: Normal reaction of pupils, equal size. Conjunctiva pink, sclera white. NOSE: Clear with pink turbinates. THROAT: No erythema or exudates. NECK: No masses, no JVD, no thyroid enlargement, no adenopathy. CHEST: No chest wall deformity. Symmetrical expansion. LUNGS: Equal air entry with scattered rhonchi more so on the right lung CVS: Regular rate and rhythm, normal S1 and S2, no gallops, no murmurs, no rubs ABDOMEN: Soft, nontender. No hepatosplenomegaly, normal bowel sounds, no guarding or rigidity. EXTREMITIES: No clubbing, no edema, no cyanosis, 2+ pulses and upper and lower extremities. MUSCULOSKELETAL: Muscle strength and tone normal. SPINE: No scoliosis or deformity SKIN: No rashes CENTRAL NERVOUS SYSTEM: No focal deficits, tone is normal in all 4 extremities. PSYCHIATRIC: Alert and oriented -3. Appropriate affect. Intact judgment and insight. - Labs CBC & Chem 7: 10/07/20 05:35 10/07/20 05:35 Labs: Abnormal Lab Results - Last 24 Hours (Table) 10/06/20 10/07/20 10/07/20 Range/Units 16:43 05:35 05:35 WBC 95.5 H* (3.8-10.6) k/uL RBC 3.05 L (4.30-5.90) m/uL Hgb 9.3 L (13.0-17.5) gm/dL Hct 29.1 L (39.0-53.0) % RDW 19.7 H (11.5-15.5) % Neutrophils # 93.5 H (1.3-7.7) k/uL Lymphocytes # 0.0 L (1.0-4.8) k/uL Basophils # 0.7 H (0-0.2) k/uL BUN 43.0 H (9.0-27.0) mg/dL BUN/Creatinine Ratio 43.00 H (12.00-20.00) Ratio Glucose 214 H (70-110) mg/dL POC Glucose (mg/dL) 203 H (75-99) mg/dL Calcium 11.7 H (8.7-10.3) mg/dL 10/07/20 10/07/20 Range/Units 06:57 11:23 WBC (3.8-10.6) k/uL RBC (4.30-5.90) m/uL Hgb (13.0-17.5) gm/dL Hct (39.0-53.0) % RDW (11.5-15.5) % Neutrophils # (1.3-7.7) k/uL Lymphocytes # (1.0-4.8) k/uL Basophils # (0-0.2) k/uL BUN (9.0-27.0) mg/dL BUN/Creatinine Ratio (12.00-20.00) Ratio Glucose (70-110) mg/dL POC Glucose (mg/dL) 209 H 135 H (75-99) mg/dL Calcium (8.7-10.3) mg/dL Microbiology - Last 24 Hours (Table) 10/02/20 11:39 Blood Culture - Preliminary Blood No Growth after 120 hours 10/05/20 14:00 Gram Stain - Final Bronchoalviolar Lavage - Right Bronchial Washings Culture - Final 10/05/20 14:00 Acid Fast Bacilli Smear - Final Bronchoalviolar Lavage - Right Acid Fast Bacilli Culture - Preliminary Assessment and Plan Assessment: 1. Acute hypoxic respiratory failure with the possibility of underlying pneumonia, healthcare acquired, an immunocompromised host, and there is a possibility of non-small cell lung cancer progression with appearance of lymphangitic carcinomatosis, on the appearance of the chest x-ray that showed worsening diffuse bilateral reticulonodular infiltrates. High resolution CT was obtained showing extensive reticular nodular infiltrates throughout the lungs with pleural effusions consistent with inflammatory disease or rapidly progressing lymphangitic metastatic disease. Bronchoscopy with BAL and biopsy 10/05/2020, cultures and pathology pending 2. Non-small cell lung cancer diagnosed in June 2020, poorly differentiated, diagnosed via CT-guided biopsy on 06/19/2020 status post concurrent chemoradiation with weekly carboplatin and Taxol as a chemotherapy arm, and patient states he completed treatment on 09/04/2020 3. Recent hospitalization for dehydration, acute kidney injury and weakness and possibility of pneumonia, 09/16/2020 through 09/19/2020 discharged home on oral antibiotics 4. Hypercalcemia, bone scan revealed no evidence of skeletal metastasis 5. Hyponatremia related to hypovolemia 6. Weakness, dehydration, poor oral intake 7. Significant leukocytosis suspect leukemoid reaction versus CLL 8. Lactic acidosis, improving with IV hydration still remains significantly elevated, with possibility of sepsis 9. Diabetes mellitus type 2 10. Former smoker Plan: The patient was seen and evaluated by Dr. Alvarez Continue the current treatment plan for now Titrate down the FiO2 as tolerated Await cultures and cytology Oncology is on the case Prognosis remains guarded We will continue to follow I, the cosigning physician, performed a history & physical examination of the patient. Lungs sounds with few scattered rhonchi more so on the right lung. Maintaining good O2 saturations in the 90s on 6 L/m per nasal cannula. I discussed the assessment and plan of care with my nurse practitioner, Daly Corey. I attest to the above note as dictated by her.
--- NOTE | 2020-10-07 16:05 | P.PN ---
Subjective Progress Note Date: 10/07/20 Principal diagnosis: Sepsis Increased Mental status changes, confusion. Restless today and requiring more oxygen Brnch on 10/05 - biopsy pending. Objective - Vital Signs Vital signs: Vital Signs Temp 96.9 F L 10/07/20 14:00 Pulse 103 H 10/07/20 14:00 Resp 22 10/07/20 06:00 BP 176/86 10/07/20 14:00 Pulse Ox 97 10/07/20 14:00 Intake & Output 10/06/20 10/07/20 10/07/20 18:59 06:59 18:59 Intake Total 50 Output Total 1 Balance -1 50 Intake: Oral 50 Output: Stool 1 Other: Voiding Method Urinal Urinal Diaper Diaper # Voids 1 # Bowel Movements 1 - Exam - Constitutional General appearance: average body habitus, cooperative, no acute distress - EENT Eyes: anicteric sclerae, EOMI ENT: normal oropharynx - Neck Neck: no lymphadenopathy - Respiratory Respiratory: bilateral: rales - Cardiovascular Heart sounds: normal: S1, S2 leg Peripheral Edema: bilateral: None - Gastrointestinal General gastrointestinal: no absent bowel sounds, no decreased bowel sounds, no distended, no hepatomegaly, no hyperactive bowel sounds, normal bowel sounds, no organomegaly, no rigid, no scaphoid, soft, no splenomegaly, no tenderness, no umbilical hernia, no ventral hernia - Neurologic Neurologic: CNII-XII intact - Musculoskeletal Musculoskeletal: generalized weakness - Psychiatric Psychiatric:confused today, - Labs CBC & Chem 7: 10/07/20 05:35 10/07/20 05:35 Labs: Abnormal Lab Results - Last 24 Hours (Table) 10/06/20 10/07/20 10/07/20 Range/Units 16:43 05:35 05:35 WBC 95.5 H* (3.8-10.6) k/uL RBC 3.05 L (4.30-5.90) m/uL Hgb 9.3 L (13.0-17.5) gm/dL Hct 29.1 L (39.0-53.0) % RDW 19.7 H (11.5-15.5) % Neutrophils # 93.5 H (1.3-7.7) k/uL Lymphocytes # 0.0 L (1.0-4.8) k/uL Basophils # 0.7 H (0-0.2) k/uL BUN 43.0 H (9.0-27.0) mg/dL BUN/Creatinine Ratio 43.00 H (12.00-20.00) Ratio Glucose 214 H (70-110) mg/dL POC Glucose (mg/dL) 203 H (75-99) mg/dL Calcium 11.7 H (8.7-10.3) mg/dL 10/07/20 10/07/20 Range/Units 06:57 11:23 WBC (3.8-10.6) k/uL RBC (4.30-5.90) m/uL Hgb (13.0-17.5) gm/dL Hct (39.0-53.0) % RDW (11.5-15.5) % Neutrophils # (1.3-7.7) k/uL Lymphocytes # (1.0-4.8) k/uL Basophils # (0-0.2) k/uL BUN (9.0-27.0) mg/dL BUN/Creatinine Ratio (12.00-20.00) Ratio Glucose (70-110) mg/dL POC Glucose (mg/dL) 209 H 135 H (75-99) mg/dL Calcium (8.7-10.3) mg/dL Microbiology - Last 24 Hours (Table) 10/02/20 11:39 Blood Culture - Preliminary Blood No Growth after 120 hours 10/05/20 14:00 Gram Stain - Final Bronchoalviolar Lavage - Right Bronchial Washings Culture - Final 10/05/20 14:00 Acid Fast Bacilli Smear - Final Bronchoalviolar Lavage - Right Acid Fast Bacilli Culture - Preliminary Assessment and Plan Plan: CT scan - chest: report reviewed, image reviewed Assessment and Plan Pneumonia: - Repeat Imaging Chest after resolution of antibiotics and patient improves - Status POst Bronch - Await Path Non-small cell carcinoma of lung, left - Status Post Treatment 08/30/20 - Plan for repeat imaging after resolution of acute hospitalization Hypercalcemia - Status post Aredia - Bone scan negative - Continue Hydration - Decreased overall albumin - CMP in am and dieticien Leukocytosis - Labs reviewed-leukocytosis with elevated ANC-likely r/t infection.
[2020-10-07 16:38] LABS: Glucose,Whole Blood 181 mg/dL (75-99)
[2020-10-07] MEDS: ENOXAPARIN 40 MG/0.4 ML SYRINGE SQ SCH (16:52)
--- NOTE | 2020-10-07 17:41 | PN ---
PROGRESS NOTE DATE OF SERVICE: 10/07/2020 This 80-year-old gentleman admitted with bilateral interstitial pneumonia is also considered radiation pneumonitis also. The bone scan did not show any acute abnormality. The patient has got change in mental status, metabolic encephalopathy, and sensorium is waxing and waning. Patient on broad spectrum IV antibiotics and steroids. Past medical history reviewed. REVIEW OF SYSTEMS: Review of systems could not be taken, the patient is confused. CURRENT MEDICATIONS: Tylenol, DuoNeb, aspirin, Lipitor. Pulmicort. Cefepime. Lovenox. Mucinex. Solu-Medrol, Narcan. Zofran. PHYSICAL EXAM: Patient is alert and oriented x1. Pulse 103. Blood pressure 176/83, respiration 20, temperature 98.9, pulse ox 97% on 6 L. HEENT: Conjunctivae normal. NECK: No JVD. CARDIOVASCULAR: S1, S2 muffled. Respirations: Breath sounds diminished in the bases. Bilateral scattered rhonchi and crackles. ABDOMEN: Soft. Nontender. NERVOUS SYSTEM: No focal deficits. LABS: WBC 9.5, hemoglobin 9.3, sodium 142. The cultures are negative so far. ASSESSMENT: 1. Acute bilateral interstitial pneumonia with possible chronic obstructive pulmonary disease acute exacerbation with possibly gram-negative pneumonia, sepsis, present on admission with acute hypoxic respiratory failure. 2. Covid test is negative. 3. 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 4. Change in his mental status, metabolic encephalopathy, acute, multifactorial. 5. Hypercalcemia. 6. Leukemoid reaction. 7. Status post bronchoscopy and biopsy. 8. 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 9. Hyponatremia. 10.Hyperkalemia. 11.Increased WBC. 12.Anemia, normocytic anemia of malignancy. 13.Metastatic lung cancer. 14.Hypomagnesemia. 15.Elevated LDH, CRP, D-dimer. 16.Bone scan negative. 17.Diabetes mellitus type 2. 18.Hypertension. 19.Remote history of nicotine dependence. 20.Severe protein calorie malnutrition with body mass index 18.5. 21.FULL CODE. RECOMMENDATIONS AND DISCUSSION: Recommend to continue current medications, monitoring, management and symptomatic treatment. Otherwise, at this time, I would recommend continue the current medications, management and monitor blood sugars closely. The patient's calcium is also elevated at 11.7. I would also recommend hematology/oncology evaluation for hypercalcemia as well. Guarded prognosis. Further recommendations to follow. MMODL / IJN: [id number] /
[2020-10-07 20:03] LABS: Glucose,Whole Blood 167 mg/dL (75-99)
[2020-10-07] MEDS: ATORVASTATIN 10 MG TAB PO SCH (20:12)
[2020-10-07] MEDS: CHOLECALCIFEROL 1,000 UNIT TAB PO SCH (20:12)
[2020-10-07] MEDS: ASPIRIN 81 MG PO SCH (20:12)
[2020-10-07] MEDS: MIRTAZAPINE 15 MG TAB PO SCH (20:13)
[2020-10-07] MEDS: methylPREDNISolone SOD SUCCI 40 MG/ML 1 ML VIAL IV SCH (23:01)
[2020-10-08] MEDS ORDERED: VANCOMYCIN TROUGH DUE 1 EACH MISC MISCELLANE ONE (01:00)
[2020-10-08] MEDS: VANCOMYCIN 1,000 MG in SODIUM CHLORIDE 0.9% 250 ML IVPB SCH (01:08)
[2020-10-08 02:45] LABS: Mycoplasma IgG Antibody (EIA) 1.35 INDEX (<=0.90); Mycoplasma IgM Antibody 0.27 INDEX (<=0.90)
[2020-10-08] MEDS: IPRATROPIUM-ALBUTEROL 3 ML NEB INHALATION SCH ×6 (04:12→23:10)
--- NOTE | 2020-10-08 04:37 | PN ---
PROGRESS NOTE DATE OF SERVICE: 10/07/2020 REASON FOR FOLLOWUP: Pneumonia. INTERVAL HISTORY: The patient is currently afebrile. The patient is breathing comfortably. He is lightly lethargic to. Denies having any chest pain, cough, and not bringing up any sputum. No nausea, vomiting or diarrhea. PHYSICAL EXAMINATION: Blood pressure 158/76, pulse of 105, temperature 97. He is 96% on 6 L nasal cannula. General description is an elderly male lying in bed in no distress. RESPIRATORY SYSTEM: Unlabored breathing, some coarse breath sounds at the bases. No wheeze. HEART: S1, S2. Regular rate and rhythm. ABDOMEN: Soft, no tenderness. LABS: Hemoglobin 9.3, white count 95.5. BUN of 43, creatinine 1.0. Bronch cultures currently pending. DIAGNOSTIC IMPRESSION AND PLAN: Patient with pneumonia and concern for possible lymphangitic spread in this patient status post bronchoscopy cultures and transbronchial biopsies currently pending. Patient is covered with cefepime and vancomycin. Did have significant elevated white count more likely steroid effect and monitored closely. Continue supportive care. MMODL / IJN: [id number] /
[2020-10-08 06:50] LABS: Anisocytosis Slight; HCT 31.9 % (39.0-53.0); HGB 9.8 gm/dL (13.0-17.5); Hypochromasia Marked; MCH 29.8 pg (25.0-35.0); MCHC 30.8 g/dL (31.0-37.0); MCV 96.6 fL (80.0-100.0); Macrocytosis Slight; Mean Platelet Volume 8.3; Platelet Count 297 k/uL (150-450); RDW 19.7 % (11.5-15.5)
[2020-10-08 06:52] LABS: Glucose,Whole Blood 233 mg/dL (75-99)
[2020-10-08 07:01] LABS: WBC 118.1 k/uL (3.8-10.6)
[2020-10-08] MEDS: INSULIN ASPART (NovoLOG) 100 UNIT/ML VIAL SQ SCH ×4 (07:19→19:49)
[2020-10-08] MEDS: guaiFENesin 600 MG TABLET.ER PO SCH ×2 (07:19→19:49)
[2020-10-08] MEDS: FOLIC ACID 1 MG TAB PO SCH (07:19)
[2020-10-08] MEDS: MULTIVITAMINS, THERA 1 EACH TAB PO SCH (07:19)
[2020-10-08] MEDS: PANTOPRAZOLE 40 MG TABLET PO SCH (07:20)
[2020-10-08] MEDS: FLUCONAZOLE 100 MG TAB PO SCH (07:20)
[2020-10-08] MEDS: lisinopriL 10 MG TAB PO SCH (07:20)
[2020-10-08] MEDS: metFORMIN 500 MG TAB PO SCH ×2 (07:20→21:05)
[2020-10-08] MEDS: THIAMINE 100 MG TAB PO SCH (07:20)
[2020-10-08] MEDS: FORMOTEROL FUMARATE 20 MCG/2 ML NEBU INHALATION SCH ×2 (09:50→20:30)
[2020-10-08] MEDS: BUDESONIDE 1 MG/2 ML NEBU INHALATION SCH ×2 (09:50→20:31)
[2020-10-08] MEDS: LORazepam 0.5 MG TAB PO PRN ×2 (11:00→20:32)
[2020-10-08 11:36] LABS: Glucose,Whole Blood 133 mg/dL (75-99)
[2020-10-08 12:11] LABS: African American GFR (CKD) 66.7 (60.0-200.0); Anion Gap 13.7 mmol/L (4.00-12.00); BUN/Creat Ratio 37.5 Ratio (12.00-20.00); Calcium 11.6 mg/dL (8.7-10.3); Carbon Dioxide 22.3 mmol/L (21.6-31.8); Magnesium 1.6 mg/dL (1.5-2.4); Non-African American GFR(CKD) 57.6 (60.0-200.0); Potassium 3.4 mmol/L (3.5-5.5)
[2020-10-08 13:02] LABS: Band Neutrophils % 2 %; Lymphocytes # (M) 1.18 k/uL (1.0-4.8); Monocytes # (M) 3.54 k/uL (0-1.0); Neutrophils % (M) 96 %; Nucleated Red Blood Cells 0 /100 WBC (0-0); Total Cells Counted 200; Toxic Granulation Present
[2020-10-08 13:03] LABS: Poikilocytosis (M) Present; Polychromasia Present
[2020-10-08] MEDS: methylPREDNISolone SOD SUCCI 40 MG/ML 1 ML VIAL IV SCH ×3 (16:04→23:18)
[2020-10-08] MEDS: LACTATED RINGERS 1,000 ML IV SCH ×3 (16:05→21:06)
[2020-10-08] MEDS: CEFEPIME 2 GM in SODIUM CHLORIDE 0.9% 100 ML IVPB SCH ×2 (16:05→19:48)
[2020-10-08 16:27] LABS: Glucose,Whole Blood 214 mg/dL (75-99)
[2020-10-08] MEDS: ENOXAPARIN 40 MG/0.4 ML SYRINGE SQ SCH (17:39)
[2020-10-08] MEDS: ASPIRIN 81 MG PO SCH (19:48)
[2020-10-08] MEDS: ATORVASTATIN 10 MG TAB PO SCH (19:48)
[2020-10-08] MEDS: CHOLECALCIFEROL 1,000 UNIT TAB PO SCH (19:49)
[2020-10-08] MEDS ORDERED: VANCOMYCIN 1,000 MG in SODIUM CHLORIDE 0.9% 250 ML IVPB SCH (20:00)
--- NOTE | 2020-10-08 20:00 | PN ---
PROGRESS NOTE PULMONARY/CRITICAL CARE PROGRESS NOTE: DATE OF SERVICE: October 08, 2020. INTERVAL HISTORY: This is a 80-year-old gentleman who was admitted back on October 02. He came with acute hypoxemic respiratory failure secondary to underlying healthcare acquired pneumonia. 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 He has extensive reticular nodular infiltrates on CT scan. He has a diagnosis of non-small cell lung cancer diagnosed back in June 2020, poorly differentiated. He had CT-guided biopsy at that time. He has received concurrent chemoradiation with carboplatin and Taxol and radiation treatment. The patient had a recent hospitalization for dehydration. The patient had a repeat bronchoscopy with BAL and biopsy in October [address] Alvarez. He also has a history of multiple other medical problems including hypercalcemia, hyponatremia, dehydration and weakness, and the family did reaction. The patient is a NO CODE. Apparently there was some talk that the patient may decide to go hospice. PHYSICAL EXAMINATION: VITAL SIGNS: Current vital signs include temperature 97.2, heart rate 92, respiratory rate 22, blood pressure 160/75 mean 103, and 6 L saturations are 89%. GENERAL: The patient is very lethargic and somnolent. Does not respond verbally. HEENT: Examination is grossly unremarkable. Nasal cannula in place. NECK: Supple. Full range of motion. CARDIOVASCULAR: Examination reveals regular rhythm and rate. Heart rate 88 beats per minute. S1, S2 normal. Heart sounds are distant. LUNGS: Reveal diffuse coarse crackles and rhonchi. Breath sounds equal. ABDOMEN: Soft. EXTREMITIES are intact. No edema. SKIN: Without rash. NEUROLOGIC: Examination is difficult to assess. The patient is quite lethargic. CURRENT LAB DATA: Reviewed. White count 118.1 thousand, hemoglobin 9.8, hematocrit 31.9, platelet count is 297. Sodium 144, potassium 3.4, chloride 108, CO2 22. Anion gap 13.7, BUN and creatinine were 45 and 1.2. Microbiology is reviewed. Nothing yet back. Cytology report is not yet back. Bone scan from October 06 showed no suspicious decreased radiotracer uptake to suggest metastatic disease to bone. Current medications are reviewed. ASSESSMENT: 1. Acute hypoxemic respiratory failure, likely secondary to either pneumonia, or lymphangitic carcinomatosis. 2. Non-small cell lung cancer, diagnosed June 2020, poorly differentiated, status post concurrent chemoradiation. 3. Status post repeat bronchoscopy on October 05, [address] Alvarez, with BAL and biopsy, results currently pending. 4. Recent hospitalization for dehydration and acute kidney injury. 5. Hypercalcemia. 6. Hyponatremia. 7. Weakness and dehydration. 8. Significant leukocytosis, which may represent a leukemoid reaction versus CLL. 9. Lactic acidosis. 10.Diabetes mellitus, type 2. 11.Former smoker. PLAN: Apparently the patient has decided or will decide to go hospice. This may be more of a family decision. Oncology is on the case. Recent BAL and biopsy done by Dr. Alvarez on October 05 are currently pending. Prognosis remains guarded. No additional recommendations are made. We will continue to follow. Culture data is all negative. Medications are reviewed. The patient currently remains on vancomycin and Maxipime. Other medications are appropriate. We will continue to follow. Prognosis is poor. MMODL / IJN: [id number] /
[2020-10-08 21:02] LABS: Glucose,Whole Blood 170 mg/dL (75-99)
[2020-10-08] MEDS: MIRTAZAPINE 15 MG TAB PO SCH (21:05)
--- NOTE | 2020-10-08 23:09 | P.PN ---
Progress Note - Text Progress Note Date: 10/08/20 Chief Complaint: short of breath History of presenting complaint: This is a pleasant 80-year-old patient of Dr. Nunez. He follows with . Patient had a computed tomography scan guided biopsy on 06/19/2020 revealing poorly differentiated adenocarcinoma. Patient started on concurrent chemoradiation with weekly carboplatin and Taxol. Other chronic stable medical conditions include diabetes, GERD, hypertension, hyperlipidemia. He was admitted here on September 16 with pneumonia and sepsis. Patient now presents with progressive weakness. Decreased appetite and weight loss. Off of it congested bringing up some thick sputum. No pain. Hypoxic in the ER. admitted with pneumonia, acute COPD exacerbation.received bronchodilators. Received cefepime vancomycin. Did undergo bronchoscopy.had been requiring high flow oxygen to 6 L. Today-nurse at called me that patient's family was strongly constraint hospice. Patient is being rather delirious. Very congested. Sometimes not taking his medications. Mouth breathing. I spoke to Dr. Campa -leaning toward hospice. I did speak to patient's son over the phone and described patient's clinical picture. Also spoke to Stephani Castañeda-there were waiting for the biopsy results. I did update her about clinical picture. Also spoke to nurse case management about hospice.patient rather short of breath at rest progress review of systems cannot be done as patient is very delirious short of breath Active Medications Acetaminophen (Acetaminophen Tab 325 Mg Tab) 650 mg PO Q6HR PRN PRN Reason: Mild Pain or Fever > 100.5 Albuterol/Ipratropium (Ipratropium-Albuterol 3 Ml Neb) 3 ml INHALATION RT-Q4H [facility] Last Admin: 10/08/20 20:31 Dose: 3 ml Documented by: Aspirin (Aspirin 81 Mg) 81 mg PO [facility] Last Admin: 10/08/20 19:48 Dose: Not Given Documented by: Atorvastatin Calcium (Atorvastatin 10 Mg Tab) 10 mg PO [facility] Last Admin: 10/08/20 19:48 Dose: Not Given Documented by: Budesonide (Budesonide 1 Mg/2 Ml Nebu) 1 mg INHALATION RT-BID [facility] Last Admin: 10/08/20 20:31 Dose: 1 mg Documented by: Cholecalciferol (Cholecalciferol 1,000 Unit Tab) 5,000 unit PO [facility] Last Admin: 11/30/20 19:49 Dose: Not Given Documented by: Enoxaparin Sodium (Enoxaparin 40 Mg/0.4 Ml Syringe) 40 mg SQ DAILY@1600 [facility] Last Admin: 10/08/20 17:39 Dose: 40 mg Documented by: Fluconazole (Fluconazole 100 Mg Tab) 100 mg PO DAILY [facility] Last Admin: 10/08/20 07:20 Dose: 100 mg Documented by: Folic Acid (Folic Acid 1 Mg Tab) 1 mg PO DAILY@1200 [facility] Last Admin: 10/08/20 07:19 Dose: 1 mg Documented by: Formoterol Fumarate (Formoterol Fumarate 20 Mcg/2 Ml Nebu) 20 mcg INHALATION RT-BID [facility] Last Admin: 10/08/20 20:30 Dose: Not Given Documented by: Guaifenesin (Guaifenesin 600 Mg Tablet.Er) 1,200 mg PO Q12HR [facility] Last Admin: 10/08/20 19:49 Dose: Not Given Documented by: Cefepime HCl 2 gm/ Sodium (Chloride) 100 mls @ 25 mls/hr IVPB Q12HR [facility] Last Admin: 10/08/20 19:48 Dose: Not Given Documented by: Lactated Ringer's (Lactated Ringers) 1,000 mls @ 125 mls/hr IV .Q8H [facility] Last Admin: 10/08/20 21:06 Dose: Not Given Documented by: Vancomycin HCl 1,000 mg/ (Sodium Chloride) 250 mls @ 125 mls/hr IVPB Q18H [facility] Last Admin: 10/08/20 19:48 Dose: Not Given Documented by: Insulin Aspart (Insulin Aspart (Novolog) 100 Unit/Ml Vial) 0 unit SQ [facility]; Protocol Last Admin: 10/08/20 19:49 Dose: Not Given Documented by: Lisinopril (Lisinopril 10 Mg Tab) 10 mg PO DAILY [facility] Last Admin: 10/08/20 07:20 Dose: 10 mg Documented by: Lorazepam (Lorazepam 0.5 Mg Tab) 0.5 mg PO Q6HR PRN PRN Reason: Anxiety Last Admin: 10/08/20 20:32 Dose: 0.5 mg Documented by: Metformin HCl (Metformin 500 Mg Tab) 1,000 mg PO BID [facility] Last Admin: 10/08/20 21:05 Dose: Not Given Documented by: Methylprednisolone Sodium Succinate (Methylprednisolone Sod Succi 40 Mg/Ml 1 Ml Vial) 40 mg IV Q8HR [facility] Last Admin: 10/08/20 17:09 Dose: Not Given Documented by: Mirtazapine (Mirtazapine 15 Mg Tab) 15 mg PO HS [facility] Last Admin: 10/08/20 21:05 Dose: Not Given Documented by: Multivitamins (Multivitamins, Thera 1 Each Tab) 1 each PO DAILY@1200 [facility] Last Admin: 10/08/20 07:19 Dose: 1 each Documented by: Naloxone HCl (Naloxone 0.4 Mg/Ml 1 Ml Vial) 0.2 mg IV Q2M PRN PRN Reason: Opioid Reversal Ondansetron HCl (Ondansetron 4 Mg/2 Ml Vial) 4 mg IVP Q8HR PRN PRN Reason: Nausea And Vomiting Ondansetron HCl (Ondansetron 4 Mg Tab) 4 mg PO Q6HR PRN PRN Reason: Nausea Pantoprazole Sodium (Pantoprazole 40 Mg Tablet) 40 mg PO AC-BRKFST [facility] Last Admin: 10/08/20 07:20 Dose: 40 mg Documented by: Thiamine HCl (Thiamine 100 Mg Tab) 100 mg PO DAILY@1200 [facility] Last Admin: 10/08/20 07:20 Dose: 100 mg Documented by: Physical examination: VITAL SIGNS: 97.2, 102, 30, 160 or 75, 89% on 6 L GENERAL:laying in bed, restless, audibly congested EYES: [Pupils equal. Conjunctiva pale. NECK: JVD unable to assess; masses not palpable. HEART: First and second heart sounds are normal; no edema. LUNGS: Respiratory rate increased, decreased breath sounds.expiratory crackles ABDOMEN: Soft, nontender, liver spleen not palpable, no masses palpable. PSYCH: delirious, not able to answer questions MUSCULAR skeletal: Evidence of OA, prominent bony prominences, loss of muscle mass and subcutaneous fat NEUROLOGICAL:moving all 4 limbs INVESTIGATIONS, reviewed in the clinical context: White count 118, hemoglobin 9.8, platelets 297, potassium 3.4, Previous testing: White count 7.4 hemoglobin 9.8 platelets 293 potassium 5.2 sodium 128 creatinine 0.93 Lactic acid 4.3, albumin 2.7 Coronavirus P/Cr-not detected EKG tracing personally reviewed by me-sinus rhythm line Chest x-ray film personally reviewed by me-diffuse bilateral reticular-nodular infiltrates nuclear bone scan-unremarkable blood culture-negative Bronchial washing culture-negative Assessment: -Possible pneumonia, suspect underlying gram-negative orgasm in an immunosuppressed patient -Diabetes mellitus type 2 on oral hypoglycemic -Hyperlipidemia -Chronic insomnia for medical reasons -Essential hypertension -Medical debility from underlying malignancy -Adenocarcinoma of the lung has undergone chemoradiation -Acute COPD exacerbation in a X smoker -Moderate protein calorie malnutrition from decreased oral intake -Acute delirium multifactorial Plan: onIV cefepime and vancomycin. patient not able to eat.I spoke to Delaney RESAW TAILER with Dr. Campa.-to directly talk to Dr. Lindsay from oncology to make a final determination about patient's disposition.total time spent about 40 minutes including about 25 minutes of discussion also discussed with the nurse and nurse case management Stephani Advanced care planning: Spoke to patient's son Mateusz. Give patient opted to patient's clinical status. They have been elevated as nurses been calling them. leaning to hospice. They did speak [facility] office. Awaiting final determination from us. shift manager also spoke to them. They would like the patient to come home. Oxygen was also discussed. total time spent about 25 minutes.
--- NOTE | 2020-10-09 00:09 | PN ---
PROGRESS NOTE DATE OF SERVICE: 10/08/2020 REASON FOR FOLLOWUP: Pneumonia. INTERVAL HISTORY: The patient is currently afebrile. The patient has been has shortness of breath today and requiring a non-rebreather. He is hemodynamically stable. No vomiting or diarrhea or any other changes reported by nursing staff. The patient himself was unable to provide any history. PHYSICAL EXAMINATION: Blood pressure 144/69 with pulse of 107, temperature 97.2. He is 92% on 15 L high-flow oxygen. General description is an elderly male lying in bed in no distress. RESPIRATORY SYSTEM: Unlabored breathing, decreased breath sounds at the bases. No wheeze. HEART: S1, S2. Regular rate and rhythm. ABDOMEN: Soft, no tenderness. LABS: Hemoglobin is 9.8, white count 118, BUN of 45, creatinine 1.2. Bronch culture so far negative. Biopsies currently pending at this time. DIAGNOSTIC IMPRESSION AND PLAN: Patient with acute respiratory failure, pneumonia with concern for possible pneumonia versus a lymphangitic spread status post bronchoscopy cultures currently pending. Patient is covered with cefepime and vancomycin as well as steroids and did have significant elevated white count more likely steroid related. Continue to monitor closely. Continue with supportive care. MMODL / IJN: [id number] /
[2020-10-09] MEDS: IPRATROPIUM-ALBUTEROL 3 ML NEB INHALATION SCH ×2 (03:33→08:42)
[2020-10-09 06:16] LABS: Anisocytosis Slight; Basophils # (A) 0.2 k/uL (0-0.2); Basophils % (A) 0 %; Eosinophils # (A) 0.2 k/uL (0-0.7); Eosinophils % (A) 0 %; HCT 28.8 % (39.0-53.0); Hypochromasia Marked; Lymphocytes # (A) 0.1 k/uL (1.0-4.8); Lymphocytes % (A) 0 %; MCH 29.9 pg (25.0-35.0); MCHC 31.2 g/dL (31.0-37.0); MCV 95.8 fL (80.0-100.0); Macrocytosis Slight; Mean Platelet Volume 8.8; Monocytes # (A) 1.2 k/uL (0-1.0); Monocytes % (A) 1 %; Neutrophils % (A) 99 %; Platelet Count 240 k/uL (150-450); RBC 3.01 m/uL (4.30-5.90)
[2020-10-09 06:28] LABS: WBC 119.8 k/uL (3.8-10.6)
[2020-10-09] MEDS: LORazepam 0.5 MG TAB PO PRN (06:53)
[2020-10-09 06:57] LABS: Glucose,Whole Blood 156 mg/dL (75-99)
[2020-10-09] MEDS: LACTATED RINGERS 1,000 ML IV SCH (06:58)
[2020-10-09] MEDS: methylPREDNISolone SOD SUCCI 40 MG/ML 1 ML VIAL IV SCH (06:58)
[2020-10-09] MEDS: FLUCONAZOLE 100 MG TAB PO SCH (06:58)
[2020-10-09] MEDS: guaiFENesin 600 MG TABLET.ER PO SCH (06:58)
[2020-10-09] MEDS: CEFEPIME 2 GM in SODIUM CHLORIDE 0.9% 100 ML IVPB SCH (06:58)
[2020-10-09] MEDS: PANTOPRAZOLE 40 MG TABLET PO SCH (06:58)
[2020-10-09] MEDS: INSULIN ASPART (NovoLOG) 100 UNIT/ML VIAL SQ SCH (06:58)
[2020-10-09] MEDS: FOLIC ACID 1 MG TAB PO SCH (06:59)
[2020-10-09] MEDS: metFORMIN 500 MG TAB PO SCH (06:59)
[2020-10-09] MEDS: lisinopriL 10 MG TAB PO SCH (06:59)
[2020-10-09 07:52] LABS: Poikilocytosis (M) Present; Polychromasia Present
[2020-10-09] MEDS: BUDESONIDE 1 MG/2 ML NEBU INHALATION SCH (08:42)
[2020-10-09] MEDS: FORMOTEROL FUMARATE 20 MCG/2 ML NEBU INHALATION SCH (08:42)
[2020-10-09 10:22] LABS: African American GFR (CKD) 55.4 (60.0-200.0); Anion Gap 11.3 mmol/L (4.00-12.00); BUN/Creat Ratio 39.29 Ratio (12.00-20.00); Carbon Dioxide 23.7 mmol/L (21.6-31.8); Non-African American GFR(CKD) 47.8 (60.0-200.0); Potassium 3.7 mmol/L (3.5-5.5)
[2020-10-09 10:50] VITALS: BP 142/60; PULSE 87; RESP 24; TEMP 97.4
--- NOTE | 2020-10-09 14:20 | P.PN ---
Subjective Progress Note Date: 10/09/20 Principal diagnosis: Sepsis Patient is still weak and fatigue. Per pulmonology he is planning hospice care Objective - Vital Signs Vital signs: Vital Signs Temp 97.4 F L 10/09/20 10:00 Pulse 87 10/09/20 10:00 Resp 24 10/09/20 10:00 BP 142/60 10/09/20 10:00 Pulse Ox 87 L 10/09/20 10:00 Intake & Output 10/08/20 10/09/20 10/09/20 18:59 06:59 18:59 Intake Total 200 Output Total 1 2 Balance -1 198 Weight 55.338 kg Intake: Oral 200 Output: Stool 1 2 Other: Voiding Method Diaper Diaper # Voids 1 100 - Exam - Constitutional General appearance: average body habitus, cooperative, no acute distress - EENT Eyes: anicteric sclerae, EOMI ENT: normal oropharynx - Neck Neck: no lymphadenopathy - Respiratory Respiratory: bilateral: rales - Cardiovascular Heart sounds: normal: S1, S2 leg Peripheral Edema: bilateral: None - Gastrointestinal General gastrointestinal: no absent bowel sounds, no decreased bowel sounds, no distended, no hepatomegaly, no hyperactive bowel sounds, normal bowel sounds, no organomegaly, no rigid, no scaphoid, soft, no splenomegaly, no tenderness, no umbilical hernia, no ventral hernia - Neurologic Neurologic: CNII-XII intact - Musculoskeletal Musculoskeletal: generalized weakness - Psychiatric Psychiatric:confused today, - Labs CBC & Chem 7: 10/09/20 05:54 10/09/20 05:54 Labs: Abnormal Lab Results - Last 24 Hours (Table) 10/05/20 10/08/20 10/08/20 Range/Units 14:00 05:55 16:25 WBC (3.8-10.6) k/uL RBC (4.30-5.90) m/uL Hgb (13.0-17.5) gm/dL Hct (39.0-53.0) % RDW (11.5-15.5) % Neutrophils # (1.3-7.7) k/uL Neutrophils # (Manual) 115.70 H (1.3-7.7) k/uL Lymphocytes # (1.0-4.8) k/uL Monocytes # (0-1.0) k/uL Monocytes # (Manual) 3.54 H (0-1.0) k/uL Sodium (135-145) mmol/L Chloride (96-109) mmol/L BUN (9.0-27.0) mg/dL Est GFR (CKD-EPI)AfAm (60.0-200.0) Est GFR (CKD-EPI)NonAf (60.0-200.0) BUN/Creatinine Ratio (12.00-20.00) Ratio Glucose (70-110) mg/dL POC Glucose (mg/dL) 214 H (75-99) mg/dL Calcium (8.7-10.3) mg/dL Viral Test See Below A 10/08/20 10/09/20 10/09/20 Range/Units 21:01 05:54 05:54 WBC 119.8 H* (3.8-10.6) k/uL RBC 3.01 L (4.30-5.90) m/uL Hgb 9.0 L (13.0-17.5) gm/dL Hct 28.8 L (39.0-53.0) % RDW 20.0 H (11.5-15.5) % Neutrophils # 118.0 H (1.3-7.7) k/uL Neutrophils # (Manual) (1.3-7.7) k/uL Lymphocytes # 0.1 L (1.0-4.8) k/uL Monocytes # 1.2 H (0-1.0) k/uL Monocytes # (Manual) (0-1.0) k/uL Sodium 148 H (135-145) mmol/L Chloride 113 H (96-109) mmol/L BUN 55.0 H (9.0-27.0) mg/dL Est GFR (CKD-EPI)AfAm 55.4 L (60.0-200.0) Est GFR (CKD-EPI)NonAf 47.8 L (60.0-200.0) BUN/Creatinine Ratio 39.29 H (12.00-20.00) Ratio Glucose 149 H (70-110) mg/dL POC Glucose (mg/dL) 170 H (75-99) mg/dL Calcium 11.0 H (8.7-10.3) mg/dL Viral Test 10/09/20 Range/Units 06:54 WBC (3.8-10.6) k/uL RBC (4.30-5.90) m/uL Hgb (13.0-17.5) gm/dL Hct (39.0-53.0) % RDW (11.5-15.5) % Neutrophils # (1.3-7.7) k/uL Neutrophils # (Manual) (1.3-7.7) k/uL Lymphocytes # (1.0-4.8) k/uL Monocytes # (0-1.0) k/uL Monocytes # (Manual) (0-1.0) k/uL Sodium (135-145) mmol/L Chloride (96-109) mmol/L BUN (9.0-27.0) mg/dL Est GFR (CKD-EPI)AfAm (60.0-200.0) Est GFR (CKD-EPI)NonAf (60.0-200.0) BUN/Creatinine Ratio (12.00-20.00) Ratio Glucose (70-110) mg/dL POC Glucose (mg/dL) 156 H (75-99) mg/dL Calcium (8.7-10.3) mg/dL Viral Test Microbiology - Last 24 Hours (Table) 10/02/20 11:39 Blood Culture - Final Blood No Growth after 144 hours Assessment and Plan Plan: CT scan - chest: report reviewed, image reviewed Assessment and Plan Pneumonia: - Repeat Imaging Chest after resolution of antibiotics and patient improves - Status POst Bronch - Await Path Non-small cell carcinoma of lung, left - Status Post Treatment 08/30/20 - Plan for repeat imaging after resolution of acute hospitalization Hypercalcemia - Status post Aredia - Bone scan negative - Continue Hydration - Decreased overall albumin - CMP in am and dieticien Leukocytosis - Labs reviewed-leukocytosis with elevated ANC-likely r/t infection. Hospice per pulm, not felt to be appropriate related to cancer diagnosis as status post definitive treatement and not definitive sign of progression at this time Physician attest: I have completed the full history and physical and agree with above dictation, dictated as a scribe.
--- NOTE | 2020-10-09 20:54 | P.DS ---
Providers Date of admission: 10/02/20 13:22 Expected date of discharge: 10/09/20 Attending physician: Ramiro Flynn Consults: 10/02/20 13:11 Consult Physician Routine Consulting Provider: Christian Garcia Consult Reason/Comments: lung cancer Do you want consulting provider notified?: Yes Consult Physician Routine Consulting Provider: Vania Santiago Consult Reason/Comments: pneumonia sepsis Do you want consulting provider notified?: Yes 10/02/20 15:16 Consult Physician Routine Consulting Provider: Malcolm Campa Consult Reason/Comments: pneumonia, lung CA, sepsis Do you want consulting provider notified?: Yes 10/03/20 12:41 Consult Physician Routine Consulting Provider: Good Rabago Consult Reason/Comments: poss rad pneumonitis Do you want consulting provider notified?: Already Contacted [facility] [place] Course: Chief Complaint: short of breath History of presenting complaint: This is a pleasant 80-year-old patient of Dr. Nunez. He follows with . Patient had a computed tomography scan guided biopsy on 06/19/2020 revealing poorly differentiated adenocarcinoma. Patient started on concurrent chemoradiation with weekly carboplatin and Taxol. Other chronic stable medical conditions include diabetes, GERD, hypertension, hyperlipidemia. He was admitted here on September 16 with pneumonia and sepsis. Patient now presents with progressive weakness. Decreased appetite and weight loss. Off of it congested bringing up some thick sputum. No pain. Hypoxic in the ER. admitted with pneumonia, acute COPD exacerbation.received bronchodilators. Received cefepime vancomycin. Did undergo bronchoscopy.had been requiring high flow oxygen to 6 L. Patient has continued to decline. With poor oral intake. Becoming delirious. More short of breath. Seems patient's prelim pathology showing lymphangitic spread of carcinoma. Patient's pubic discharged home with family with hospice. [facility]. Care was discussed with oncology and pulmonary. Discussion and discharge planning more than 35 minutes Consultations: Dr. Villeda and partners from oncology Dr. Santiago from ID Dr. Alvarez and partners from pulmonary Physical examination: VITAL SIGNS: 97.4, 87, 24, 142/60, 87% on high flow oxygen GENERAL:laying in bed, tired, delirious EYES: [Pupils equal. Conjunctiva pale. NECK: JVD unable to assess; masses not palpable. HEART: First and second heart sounds are normal; no edema. LUNGS: Respiratory rate increased, decreased breath sounds.expiratory crackles ABDOMEN: Soft, nontender, liver spleen not palpable, no masses palpable. PSYCH: delirious, not able to answer questions MUSCULAR skeletal: Evidence of OA, prominent bony prominences, loss of muscle mass and subcutaneous fat NEUROLOGICAL:moving all 4 limbs INVESTIGATIONS, reviewed in the clinical context: White count 118, hemoglobin 9.8, platelets 297, potassium 3.4, Previous testing: White count 7.4 hemoglobin 9.8 platelets 293 potassium 5.2 sodium 128 creatinine 0.93 Lactic acid 4.3, albumin 2.7 Coronavirus P/Cr-not detected EKG tracing personally reviewed by me-sinus rhythm line Chest x-ray film personally reviewed by me-diffuse bilateral reticular-nodular infiltrates nuclear bone scan-unremarkable blood culture-negative Bronchial washing culture-negative Assessment: -Possible lymphangitic spread of underlying adenocarcinoma of the lung. -Pneumonia suspected gram-negative organism -Diabetes mellitus type 2 on oral hypoglycemic -Hyperlipidemia -Chronic insomnia for medical reasons -Essential hypertension -Medical debility from underlying malignancy -Adenocarcinoma of the lung has undergone chemoradiation -Acute COPD exacerbation in a X smoker -Moderate protein calorie malnutrition from decreased oral intake -Acute delirium multifactorial -Comfort Care-DO NOT RESUSCITATE Disposition: Home with family with hospice Patient Condition at Discharge: Poor Plan - Discharge Summary Discharge Rx Participant: No New Discharge Prescriptions: New Ipratropium-Albuterol Nebulize [Duoneb 0.5 mg-3 mg/3 ml Soln] 3 ml INHALATION RT-Q4H PRN ml PRN Reason: Wheezing Continue Lisinopril [Zestril] 10 mg PO DAILY Discontinued Cholecalciferol [Vitamin D3 (25 Mcg = 1000 Iu)] 5,000 unit PO HS Aspirin EC [Ecotrin Low Dose] 81 mg PO HS metFORMIN HCL ER [Glucophage Xr] 1,000 mg PO BID Simvastatin [Zocor] 20 mg PO HS Ondansetron HCl [Zofran] 4 mg PO Q6HR PRN PRN Reason: Nausea Fluconazole [Diflucan] 100 mg PO DAILY #30 tab Mirtazapine [Remeron] 15 mg PO HS Omeprazole 20 mg PO DAILY Discharge Medication List Lisinopril [Zestril] 10 mg PO DAILY 06/18/20 [History] Ipratropium-Albuterol Nebulize [Duoneb 0.5 mg-3 mg/3 ml Soln] 3 ml INHALATION RT-Q4H PRN ml 10/08/20 [Rx] Follow up Appointment(s)/Referral(s): Jan Nunez MD [Primary Care Provider] - 1-2 days [facility]ospice,[facility] [NON-STAFF] - Activity/Diet/Wound Care/Special Instructions: [facility] - comfort care orders Discharge Disposition: HOME WITH HOSPICE
== END 2020-10-09 11:14 | disposition hospice, home (50) | DRG 853 ==
LOC: EC 10:39 → 6NMEDSUR 13:22 → 4SSUR 10-03 18:02
PROVIDERS: ADMIT Hospitalist; ATTEND Hospitalist
DX: A41.50 Gram-negative sepsis, unspecified (principal); J96.01 Acute respiratory failure with hypoxia; E43 Unspecified severe protein-calorie malnutrition; J15.6 Pneumonia due to other Gram-negative bacteria; G93.41 Metabolic encephalopathy; Z68.1 Body mass index [BMI] 19.9 or less, adult; R64 Cachexia; E87.2 Acidosis; E87.1 Hypo-osmolality and hyponatremia; J44.1 Chronic obstructive pulmonary disease with (acute) exacerbation; N17.9 Acute kidney failure, unspecified; C79.51 Secondary malignant neoplasm of bone; F05 Delirium due to known physiological condition; C34.92 Malignant neoplasm of unspecified part of left bronchus or lung; J70.0 Acute pulmonary manifestations due to radiation; J84.9 Interstitial pulmonary disease, unspecified; J90 Pleural effusion, not elsewhere classified; C34.91 Malignant neoplasm of unspecified part of right bronchus or lung; Z20.828 Contact with and (suspected) exposure to other viral communicable diseases; Z51.5 Encounter for palliative care; Z66 Do not resuscitate; K21.9 Gastro-esophageal reflux disease without esophagitis; I10 Essential (primary) hypertension; F41.9 Anxiety disorder, unspecified; F51.04 Psychophysiologic insomnia; E87.5 Hyperkalemia; E86.1 Hypovolemia; E83.42 Hypomagnesemia; E83.52 Hypercalcemia; E86.0 Dehydration; E78.5 Hyperlipidemia, unspecified; E11.9 Type 2 diabetes mellitus without complications; Y84.2 Radiological procedure and radiotherapy as the cause of abnormal reaction of the patient, or of later complication, without mention of misadventure at the time of the procedure; D63.0 Anemia in neoplastic disease; R53.81 Other malaise; Z96.1 Presence of intraocular lens; Z79.82 Long term (current) use of aspirin; Z79.51 Long term (current) use of inhaled steroids; Z79.84 Long term (current) use of oral hypoglycemic drugs; Z79.899 Other long term (current) drug therapy; Z80.0 Family history of malignant neoplasm of digestive organs; Z92.3 Personal history of irradiation; Z87.891 Personal history of nicotine dependence; Z92.21 Personal history of antineoplastic chemotherapy; Z85.118 Personal history of other malignant neoplasm of bronchus and lung; Z98.890 Other specified postprocedural states; Z98.42 Cataract extraction status, left eye
CPT/HCPCS: 31624; 31628; 36415; 71045; 71250; 71275; 78306; 80048; 80053; 80202; 82728; 83036; 83605; 83615; 83735; 83880; 83970; 84145; 85025; 85379; 85610; 85730; 86140; 86738; 87040; 87070; 87102; 87116; 87205; 87206; 87252; 87449; 87496; 87498; 87502; 87529; 87634; 87635; 87798; 88108; 88305; 88341; 88342; 89050; 93005; 94640; 94664; 94760; 96365; 96375; 99285